=== PATIENT | female | born 2000 | race Caucasian/White ===

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

== ENCOUNTER 2021-05-08 12:17 | Observation (INO) | payer BC, MEDICAID, SELFPAY ==
[2021-05-08 12:18] VITALS: BP 110/67; PULSE 10; RESP 16; TEMP 36.3; O2SAT 100; BMI 23.1
--- NOTE | 2021-05-08 12:27 | EX.ED.SAOD ---
HPI History of Present Illness Chief Complaint: Substance Abuse Informant: patient Onset/Context/Timing Onset: Days Context: Gradual Onset Timing: Continuous Current Severity: Moderate Maximum Severity: Moderate Narrative Narrative: Patient is a 21-year-old female with no significant medical history who presents to the emergency department requesting detox from alcohol. Patient states that she drinks almost daily. She states that normally, she will drink malt liquor. She states that she will also drink whiskey or vodka. She states that she usually drinks almost every day. She thinks when she does not drink, she will use methamphetamines. She has been active with the [facility] program. She states that they are working to get her into a sober house after she finishes detox. She was referred in for alcohol detox. PFSH PFSH no medical history Allergy/AdvReac Type Severity Reaction Status Date / Time amoxicillin AdvReac Hives Verified 05/08/21 12:21 Social History Smoking Status: Unknown if ever smoked ROS ROS ED Constitutional Constitutional ED: Denies chills or fever(s) Eyes Eyes: Denies blurry vision or change in vision ENT ENT ED: Denies ear pain or sore throat Cardiovascular Cardiovascular: Denies chest pain or palpitations Respiratory/Chest Respiratory/Chest: Denies cough, dyspnea or dyspnea on exertion Gastrointestinal Gastrointestinal: Reports nausea Genitourinary Genitourinary ED: Denies dysuria or urinary frequency Musculoskeletal Musculoskeletal: Denies arthralgias or myalgias Integumentary Denies rash Neurologic Neurologic: Denies headache(s) or paresthesias Psychiatric Psychiatric: Denies anxiety or depression Endocrine Endocrinology: Denies polydipsia or polyuria Allergic/Immunologic Allergic/Immunologic ED: Denies urticaria EXAM Physical Exam Const Vital Signs: 05/08/21 12:18 Temperature 97.3 F L Temperature Source Temporal Pulse Rate 10 L Respiratory Rate 16 Blood Pressure 110/67 Blood Pressure Mean 81 Pulse Ox 100 Oxygen Delivery Method Room Air Positive well nourished and well developed General Appearance ED: well developed HEENT Reports normocephalic, head/scalp atraumatic and moist mucous membranes Eyes PERRL and EOMs intact bilaterally Neck no lymphadenopathy and supple General: Negative for tenderness Chest Wall inspection of chest normal Resp normal respiratory effort and clear to auscultation bilaterally Cardio regular rate, regular rhythm and no murmurs GI normal to inspection, nondistended, normoactive bowel sounds Palpation: Negative for tender, guarding or rebound tenderness present Back/Spine no CVA tenderness Cervical Spine: Negative for cervical spine tenderness Thoracic Spine / Upper Back: Negative for thoracic spinal tenderness Extremity normal to inspection General Extremety ED: Negative for tenderness Neuro oriented x3 and CN's II-XII intact bilaterally Neuro Narrative: No focal deficits appreciated. Sensorium / Orientation: alert Psych mental status grossly normal Skin no rashes or lesions noted, no wounds and skin turgor normal MDM MDM MDM Narrative Medical decision making narrative: Patient presents requesting detox for alcohol. Metabolic work-up was pursued. Her tox was positive for amphetamines which she was upfront about. Rest of her labs are unremarkable. The patient was discussed with hospitalist and will be admitted. Impression 1. Alcohol dependence Lab Data Attestation: I reviewed the patient's lab results. Labs: Laboratory Results - last 24 hr 05/08/21 12:34 Urine Opiates Screen NEGATIVE Urine Methadone Screen NEGATIVE Ur Barbiturates Screen NEGATIVE Ur Phencyclidine Scrn NEGATIVE Ur Amphetamines Screen POSITIVE H U Methamphetamin-MDMA POSITIVE H U Benzodiazepines Scrn NEGATIVE Urine Cocaine Screen NEGATIVE U Cannabinoids Screen NEGATIVE Ur Drug Screen Comment Discharge Plan Triage Chief Complaint: Substance Abuse ED Provider: Lyle Street Dx/Rx/DC Orders Primary Care Provider: Care Physician,No Primary
[2021-05-08 12:55] LABS: Amphetamine Urine VISTA POSITIVE (<1000 ng/mL); Barbiturate Urine VISTA NEGATIVE (< 200 ng/mL); Benzodiazepine Urine VISTA NEGATIVE (< 200 ng/mL); Cocaine Urine VISTA NEGATIVE (< 300 ng/mL); Ecstacy Urine VISTA POSITIVE (< 500 ng/mL); Methadone Urine VISTA NEGATIVE (< 300 ng/mL); PCP Urine VISTA NEGATIVE (< 25 ng/mL); THC Urine VISTA NEGATIVE (< 50 ng/mL); Vista UDS pH Range 6
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
[2021-05-08 13:16] LABS: Absolute Lymphocyte Count 2.81 X10^3/uL (0.83-4.51); Absolute Neutrophil Count 2.7 X10^3/uL (2.0-7.7); Basophil% 1.5 % (0-1); Eosinophil# 0.46 X10^3/uL; Eosinophils% 6.9 % (0-5); Hematocrit 45.1 % (37-47); Hemoglobin 15.1 g/dL (12.0-15.0); Lymphocyte # 2.81 X10^3/ul (0.83-4.51); Lymphocyte % 41.9 % (19-41); Mean Corp Hgb Conc 33.5 g/dL (32-36); Mean Corpuscular Hgb 30.4 pg (27.0-32.0); Mean Corpuscular Volume 90.7 fL (81-99); Mean Platelet Vol. 8.5 fl (6.2-12.0); Monocyte# 0.66 X10^3/uL; Monocyte% 9.8 % (0-10); NRBC Flagged by Analyzer 0 % (0-5); Neutrophil # 2.66 X10^3/uL (2.7-7.7); Neutrophil % 39.6 % (47-70); Platelet Count 396 K/mm3 (150-450); RBC Distribution Width SD 43.8 fl (35.1-43.9); Red Blood Count 4.97 M/mm3 (4.2-5.4); White Blood Count 6.7 K/mm3 (4.4-11.0)
[2021-05-08 13:29] LABS: Anion Gap 8 (5-15); BUN 12 mg/dL (7-18); BUN/Creat Ratio 12.5 RATIO (10-20); Calcium,Total 9.3 mg/dL (8.5-10.1); Chloride 102 mmol/L (98-107); Creatinine, Serum 0.96 mg/dL (0.55-1.02); EST Glomerular Filtration Rate 79 mL/min (>60); Est Glom Filt Rate - Afr Amer 95 mL/min (>60); Estimated Creatinine Clearance 80.72 ml/min; Glucose 93 mg/dL (74-106); Potassium 3.4 mmol/L (3.5-5.1); Sodium Level 139 mmol/L (136-145)
[2021-05-08 13:50] LABS: Internal QC Validated? YES +Cl - CLEAR BKGD; Pregnancy, Serum, hCG Quali. NEGATIVE Negative
--- NOTE | 2021-05-08 13:52 | ED.RN ---
CALLED [facility]TS REQUEST (MARLENE ORTEGA) TO LET THEM KNOW THAT SHE IS HERE. PT AWARE
[2021-05-08 13:54] LABS: Alcohol, Blood (Medical)-Serum < 3.0 mg/dL
--- NOTE | 2021-05-08 13:57 | CM.ED ---
SOCIAL WORK Referral Source: Self-referral Reason for Consult: Substance Abuse-requesting detox from alcohol Patient reports sent in by [facility] for detox from alcohol with plan for residential treatment after detox. Call to [facility] to update on patient's admission and room number. Plan: AMISH Rucker, COMMERCIAL AGENT, DERMATOLOGY SALES REPRESENTATIVE
[2021-05-08 14:18] VITALS: BP 112/74; PULSE 74; RESP 16; TEMP 36.6; O2SAT 98
[2021-05-08 14:22] VITALS: BMI 23.3
[2021-05-08 14:30] VITALS: BP 105/64; PULSE 92; RESP 16; TEMP 36.8; O2SAT 99
--- NOTE | 2021-05-08 16:36 | NURSING ---
Addendum entered by Nova Bautista 05/08/21 17:32: DID NOT GIVEN DC ORDER. PT LEFT AMA - REFUSING TO SIGN AMA PAPER. Original Note: LATE ENTRY - 1544 - WENT INTO PT'S ROOM TO ASSESS & GIVE SCHEDULED PHENOBARBITOL. PT ASKS WHO ARE YOU, TOLD HER MY NAME & THAT I WOULD BE HER NURSE FOR THE AFTERNOON. ASKS WHY SHE HAS TO HAVE THE SL IN HER AC I DON'T NEED IT. I TOLD HER I WOULD BE HAPPY TO TAKE IT OUT IF IT WAS PAINFUL TO HER. SHE SAID 'CAN SOMEONE ELSE DO IT?, I ASKED HER WHY SOMEONE ELSE, PT STATES BECAUSE I DON'T KNOW YOU. ASKED PT WHO SHE WOULD LIKE TO TAKE OUT HER SL & SHE STATES THE DOCTOR. THEN PT STATES WHY DO I HAVE TO STAY HERE? I WANT TO LEAVE. I TOLD HER THIS IS A VOLUNTARY PROGRAM - SHE DOES NOT HAVE TO STAY, BUT RECOMMEND THAT SHE DUE TO HELP WITHDRAWAL SYMPTOMS. PT STATES IM NOT WITHDRAWING FROM ANYTHING. I TOLD HER I WOULD CALL THE DOCTOR & EXPLAIN THIS TO HIM & SEE IF HE COULD COME SPEAK WITH HER. 155 - SPOKE TO DR MCGOWAN ON PHONE THAT PT WANTING TO LEAVE. TOLD HER I WOULD TRY TALKING TO HER MORE - RECOMMENDING SHE STAY THE 3 DAYS. I WAS GOING BACK TO PT'S ROOM, BUT PT WAS ALREADY WALKING TOWARD NURSES STATION, DRESSED, READY TO LEAVE. PT REFUSING TO SIGN AMA PAPER. 155 - SPOKE AGAIN ON PHONE WITH DR MCGOWAN MAKING HIM AWARE SHE WILL NOT SIGN THE AMA PAPER. GAVE DC ORDER.
== END 2021-05-08 16:00 | disposition left against medical advice (07) ==
LOC: ED 12:39 → MS3 13:11
PROVIDERS: Admitting Provider Family Medicine; Emergency Provider Emergency Medicine; Visit Provider Family Medicine
DX: F10.239 Alcohol dependence with withdrawal, unspecified (principal); F15.90 Other stimulant use, unspecified, uncomplicated; F17.210 Nicotine dependence, cigarettes, uncomplicated; Z91.5 Personal history of self-harm
CPT/HCPCS: 80048; 80307; 82077; 84703; 85025; 99218; 99284; A4216; G0378

== ENCOUNTER 2021-05-18 07:54 | Emergency (ER) | payer BC, MEDICAID, SELFPAY ==
[2021-05-18] VITALS (7 sets, daily range): BP systolic 121–128; BP diastolic 72–84; PULSE 83–98; RESP 13–18; TEMP 36.7–37.1; O2SAT 97–100; BMI 24.5
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
--- NOTE | 2021-05-18 08:45 | ED.RN ---
pt mother called, pt agreed to speak with mother. pt currently speaking with mother.
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
[2021-05-18 09:08] LABS: Internal QC Validated? YES +Cl - CLEAR BKGD; Pregnancy, Serum, hCG Quali. NEGATIVE Negative
--- NOTE | 2021-05-18 10:50 | EKG12_ITS ---
Test Reason : MENTAL Blood Pressure : / mmHG Vent. Rate : 098 BPM Atrial Rate : 098 BPM P-R Int : 150 ms QRS Dur : 082 ms QT Int : 342 ms P-R-T Axes : 042 066 031 degrees QTc Int : 436 ms Normal sinus rhythm Normal ECG Confirmed by MONTRELL REYES, LEONORA ([id number]), legal editor SUSAN HILL ([id number]) on 05/21/2021 11:01:57 A M Referred By: CHEL Confirmed By:EDI STOCK MD
[2021-05-18 11:36] LABS: Amphetamine Urine VISTA NEGATIVE (<1000 ng/mL); Barbiturate Urine VISTA NEGATIVE (< 200 ng/mL); Benzodiazepine Urine VISTA NEGATIVE (< 200 ng/mL); Cocaine Urine VISTA NEGATIVE (< 300 ng/mL); Ecstacy Urine VISTA NEGATIVE (< 500 ng/mL); Methadone Urine VISTA NEGATIVE (< 300 ng/mL); PCP Urine VISTA NEGATIVE (< 25 ng/mL); THC Urine VISTA NEGATIVE (< 50 ng/mL); Vista UDS pH Range 6
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
--- NOTE | 2021-05-18 14:29 | CM.ED ---
AR Note AR received call from Lyndsey at [facility]. She reports they can accept patient. She said that accepting MD is Dr. Miles Patient will go to [address] [place] [address]. RN to RN is [phone]. RN updated. Raven, principal secretary, will arrange for transport. AR spoke to patient and updated her that she is pink slipped to [facility]. She gave verbal consent to update her parents regarding her plan to go to [facility] in [place]. AR called patient's mother, Diana and updated her regarding patient's discharge. AR provided her with name of [place] and contact number. AR left voice mail for patient's father to call this video games storywriter. Plan: inpatient psych at [facility] YURI VICKERS
--- NOTE | 2021-05-18 16:04 | CM.ED ---
SW Note Late Entry. Patient reported that her current mood was tired and she reports anxiety but no change in anxiety level. Patient denied any psychosis. Plan: [facility] Sonya LucaJorge
--- NOTE | 2021-05-18 18:51 | NURSING ---
CALLED PHYSICIANS AT 6:30PM FOR RIDE UPDATE. I WAS INFORMED THEY WHERE SENDING THE 6PM CREW AND SHOULD BE HERE WITHIN THE HOUR.
== END 2021-05-18 19:35 ==
PROVIDERS: Emergency Provider Emergency Medicine
DX: R45.851 Suicidal ideations (principal); F19.10 Other psychoactive substance abuse, uncomplicated; F17.210 Nicotine dependence, cigarettes, uncomplicated
CPT/HCPCS: 36415; 80307; 82077; 84703; 87426; 93005; 99285

== ENCOUNTER 2021-06-11 10:04 | Emergency (ER) | payer BC, MEDICAID, SELFPAY ==
[2021-05-18 07:55] VITALS: BMI 24.5
[2021-06-11 10:05] VITALS: BP 120/62; PULSE 85; RESP 19; TEMP 36.4; O2SAT 97; BMI 22.3
--- NOTE | 2021-06-11 11:01 | EX.ED.DYSGE1 ---
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 Presents today because she is out of her medications. Her primary care physician to [facility] recently retired. She has an appointment on the in 2 days to set up a new primary care physician. She states she was told by the clinic to come to ER to get her medications refilled. She denies any complaints. Prior similar symptoms: No Recent Illness/Hospitalization: No PFSH PFSH Medical History Alcohol abuse Anxiety Bipolar disorder Depression Migraines Substance abuse Home Medications bupropion HCl 1 mg PO DAILY 06/11/21 [History Last Taken Unknown] bupropion HCl 300 mg PO DAILY #14 tab 06/11/21 [Rx Last Taken Unknown] fluoxetine 20 mg PO DAILY 06/11/21 [History Last Taken Unknown] fluoxetine 20 mg PO DAILY #14 cap 06/11/21 [Rx Last Taken Unknown] hydroxyzine pamoate 50 mg PO DAILY 06/11/21 [History Last Taken Unknown] multivitamin [Daily-Carly] 1 tab PO DAILY 06/11/21 [History Last Taken Unknown] risperidone 1 mg PO BID 06/11/21 [History Last Taken Unknown] risperidone 1 mg PO BID #30 tab 06/11/21 [Rx Last Taken Unknown] risperidone mg 06/11/21 [History Last Taken Unknown] trazodone 06/11/21 [History Last Taken Unknown] trazodone 50 mg PO QHS PRN 14 Days #14 tab 06/11/21 [Rx Last Taken Unknown] Allergy/AdvReac Type Severity Reaction Status Date / Time amoxicillin Allergy Hives Verified 06/11/21 10:05 Family History Father Heart disease Aunt Cancer Other Thyroid disorder Social History Smoking Status: Current every day smoker tobacco type: cigarettes alcohol intake: current alcohol intake frequency: 0-2 drinks per day Alcohol type: beer substance use type: methamphetamine ROS ROS ED ROS Narrative Denies Review of Systems ROS Unobtainable: Denies due to encephalopathy Constitutional Constitutional ED: Denies chills or fever(s) Eyes Eyes: Denies change in vision ENT ENT ED: Denies ear pain or sore throat Cardiovascular Cardiovascular: Denies chest pain Respiratory/Chest Respiratory/Chest: Denies cough or dyspnea Gastrointestinal Gastrointestinal: Denies abdominal pain, diarrhea, nausea or vomiting Genitourinary Genitourinary ED: Denies dysuria Musculoskeletal Musculoskeletal: Denies myalgias Integumentary Denies rash Neurologic Neurologic: Denies headache(s) Psychiatric Psychiatric: Denies depression Endocrine Endocrinology: Denies polyuria Allergic/Immunologic Allergic/Immunologic ED: Denies urticaria EXAM Physical Exam Narrative Exam Narrative: Young female no acute distress. Vital signs stable afebrile. Unremarkable exam. Lungs are clear. Heart regular rate and rhythm. Moving all 4 extremities. No edema. Const Vital Signs: 06/11/21 10:05 Temperature 97.6 F L Temperature Source Temporal Pulse Rate 85 Respiratory Rate 19 H Blood Pressure 120/62 Blood Pressure Mean 81 Pulse Ox 97 Oxygen Delivery Method Room Air Positive well nourished and well developed General Appearance ED: well developed HEENT Reports moist mucous membranes Negative for trauma or tenderness Eyes PERRL and EOMs intact bilaterally Neck no lymphadenopathy, supple and no JVD General: Negative for tenderness Chest Wall inspection of chest normal and palpation of chest normal Resp normal respiratory effort and clear to auscultation bilaterally Cardio regular rate, regular rhythm, S1 normal heart sound, S2 normal heart sound and no murmurs GI normal to inspection, nondistended, normoactive bowel sounds, non-tender, non-distended and no masses Auscultation: normoactive bowel sounds Palpation: soft; Negative for tender Back/Spine no CVA tenderness Cervical Spine: Negative for cervical spine tenderness Extremity normal to inspection General Extremety ED: Negative for edema or tenderness General Extremity: Negative for edema Neuro oriented x3 Sensorium / Orientation: alert Motor Exam: strength 5/5 throughout Psych mental status grossly normal Skin no rashes or lesions noted and no wounds MDM MDM MDM Narrative Medical decision making narrative: Patient needs her meds refilled. She has no complaints. Discharge Plan Triage Chief Complaint: Med Refill ED Provider: Shamar Heredia Dx/Rx/DC Orders Clinical Impression: Medication refill Prescriptions: New risperidone 1 mg tablet 1 mg PO BID Qty: 30 RF: 0 bupropion HCl 300 mg tablet extended release 24 hr 300 mg PO DAILY Qty: 14 RF: 0 fluoxetine 20 mg capsule 20 mg PO DAILY Qty: 14 RF: 0 trazodone 50 mg tablet 50 mg PO QHS PRN (Reason: insomnia) 14 Days Qty: 14 RF: 0 No Action multivitamin [Daily-Carly] Tablet RF: 0 trazodone 50 mg tablet RF: 0 hydroxyzine pamoate 50 mg capsule RF: 0 fluoxetine 20 mg capsule RF: 0 risperidone 1 mg tablet RF: 0 bupropion HCl 300 mg tablet extended release 24 hr PO RF: 0 Primary Care Provider: Care Physician,No Primary Referrals: Gregory Velázquez MD [NON-STAFF] - [facility] appointment Care Physician,No Primary [Primary Care Provider] - Activity Restrictions/Additional Instructions: Follow-up and get your primary care physician. Disposition Disposition: Home, Self Care
[2021-06-11 11:14] VITALS: BP 127/66; PULSE 59; RESP 16; O2SAT 98
== END 2021-06-11 11:15 | disposition home or self-care (01) ==
LOC: ED 11:05
PROVIDERS: Emergency Provider Emergency Medicine
DX: F41.9 Anxiety disorder, unspecified (principal); F31.9 Bipolar disorder, unspecified; Z76.0 Encounter for issue of repeat prescription; F17.210 Nicotine dependence, cigarettes, uncomplicated; Z79.899 Other long term (current) drug therapy
CPT/HCPCS: 99282

== ENCOUNTER → 2023-04-07 | Outpatient (CLI) | payer BC, MEDICAID, SELFPAY ==
[2023-04-14 17:15] LABS: HPV Reflexed? NOT INDICATED
== END | disposition home or self-care (01) ==
LOC: LABSPEC 11:33
PROVIDERS: Visit Provider Nurse Practitioner Women's Health
DX: Z12.4 Encounter for screening for malignant neoplasm of cervix (principal)
CPT/HCPCS: 88175; G0145

== ENCOUNTER 2023-11-19 08:12 | Emergency (ER) | payer OTHER, SELFPAY ==
[2023-11-19 08:13] VITALS: BP 95/75; PULSE 54; RESP 14; TEMP 36.4; O2SAT 99; BMI 26.6
--- NOTE | 2023-11-19 08:48 | EDS_ITS ---
HPI History of Present Illness Chief Complaint: Laceration Informant: patient Narrative Narrative: 23-year-old female presenting to the emergency room with a chief complaint of finger injury. Patient was using a cottonseed meat presser when she sustained a laceration to the distal aspect of her right thumb. She states it also cut some of the nail. She notes her last tetanus shot has been within the last 5 years. She is right-handed. Bleeding controlled. Tetanus Immunization: <5 years PFSH PFS Medical History Alcohol abuse Anxiety Bipolar disorder Depression Migraines Substance abuse Medical History no medical history Home Medications bupropion HCl 300 mg 24 hr tablet, extended release 1 mg PO DAILY 06/11/21 [History Last Taken Unknown] bupropion HCl 300 mg 24 hr tablet, extended release 300 mg PO DAILY #14 tabs 06/11/21 [Rx Last Taken Unknown] fluoxetine 20 mg capsule 20 mg PO DAILY 06/11/21 [History Last Taken Unknown] fluoxetine 20 mg capsule 20 mg PO DAILY #14 caps 06/11/21 [Rx Last Taken Unknown] hydroxyzine pamoate 50 mg capsule 50 mg PO DAILY 06/11/21 [History Last Taken Unknown] multivitamin (Daily-Carly tablet) 1 tab PO DAILY 06/11/21 [History Last Taken Unknown] risperidone 1 mg tablet 1 mg PO BID 06/11/21 [History Last Taken Unknown] risperidone 1 mg tablet 1 mg PO BID #30 tabs 06/11/21 [Rx Last Taken Unknown] risperidone 1 mg tablet mg 06/11/21 [History Last Taken Unknown] trazodone 50 mg tablet 06/11/21 [History Last Taken Unknown] trazodone 50 mg tablet 50 mg PO QHS PRN insomnia 14 days #14 tabs 06/11/21 [Rx Last Taken Unknown] Allergy/AdvReac Type Severity Reaction Status Date / Time amoxicillin Allergy Hives Verified 11/19/23 08:13 Family History Father Heart disease Aunt Cancer Other Thyroid disorder Social History Smoking Status: Current every day smoker tobacco type: cigarettes alcohol intake: current alcohol intake frequency: 0-2 drinks per day Alcohol type: beer substance use type: methamphetamine ROS ROS ED Constitutional Constitutional ED: Denies chills, fever(s) or weight loss Eyes Eyes: Denies change in vision or diplopia ENT ENT ED: Denies ear pain, rhinorrhea or sore throat Cardiovascular Cardiovascular: Denies chest pain, orthopnea, palpitations or racing heartbeat Respiratory/Chest Respiratory/Chest: Denies cough, dyspnea or orthopnea Gastrointestinal Gastrointestinal: Denies abdominal pain, diarrhea, nausea or vomiting Genitourinary Genitourinary ED: Denies dysuria, hematuria or urinary frequency Musculoskeletal Musculoskeletal: Denies arthralgias or myalgias Integumentary Reports other Details: Right thumb laceration with nail injury ; Denies abscess or rash Neurologic Neurologic: Denies headache(s) or weakness Psychiatric Psychiatric: Denies anxiety, depression, suicidal ideation or suicidal thoughts Endocrine Endocrinology: Denies polydipsia, polyphagia or polyuria Allergic/Immunologic Allergic/Immunologic ED: Denies mouth swelling, tongue swelling or urticaria EXAM Physical Exam Const Vital Signs: 11/19/23 08:13 Temperature 97.6 F L Temperature Source Oral Pulse Rate 54 L Respiratory Rate 14 Blood Pressure 95/75 Blood Pressure Mean 81 Pulse Ox 99 Oxygen Delivery Method Room Air Positive well nourished and well developed General Appearance ED: well developed HEENT Reports normocephalic, head/scalp atraumatic and moist mucous membranes Eyes PERRL and EOMs intact bilaterally Neck no lymphadenopathy, supple and no JVD Resp normal respiratory effort and clear to auscultation bilaterally Cardio regular rate, regular rhythm and no murmurs GI normal to inspection, nondistended, normoactive bowel sounds and non-tender Palpation: soft Back/Spine no CVA tenderness and normal ROM Extremity normal to inspection Extremity Narrative: There is a 2.5 cm linear laceration over the distal aspect of the right thumb. This extends up onto the medial aspect of the right nail. Neurovascular intact. The wound is open about 3 mm in width . NVI General Extremety ED: Negative for edema General Extremity: Negative for edema Neuro oriented x3 and CN's II-XII intact bilaterally Sensorium / Orientation: alert Motor Exam: strength 5/5 throughout Psych mental status grossly normal Mood & Affect: Negative for depressed or tearful Skin no rashes or lesions noted and no wounds MDM MDM MDM Narrative Medical decision making narrative: Right thumb was digitally blocked using 1% lidocaine. After adequate time the thumb was properly anesthetized. The cut portion of the nail was removed by grasping the distal portion and cutting proximally to where the laceration ended. This measured about 4 mm. The laceration itself was was closedWashed with Shur-Clens and explored. No foreign bodies were noted. A total of 5 simple interrupted 5-0 Ethilon sutures. Local wound care discussed with the patient. Stitches will need to be removed in 10 days. Discharge Plan Triage Chief Complaint: Laceration ED Provider: Jean Al Dx/Rx/DC Orders Clinical Impression: Pain of right thumb, Laceration of finger of right hand with damage to nail Instructions: ED Laceration, All Closures Prescriptions: No Action risperidone 1 mg tablet 1 mg PO BID Qty: 30 0RF bupropion HCl 300 mg tablet extended release 24 hr 300 mg PO DAILY Qty: 14 0RF fluoxetine 20 mg capsule 20 mg PO DAILY Qty: 14 0RF multivitamin [Daily-Carly] Tablet 1 tab PO DAILY trazodone 50 mg tablet hydroxyzine pamoate 50 mg capsule 50 mg PO DAILY fluoxetine 20 mg capsule 20 mg PO DAILY risperidone 1 mg tablet 1 mg PO BID bupropion HCl 300 mg tablet extended release 24 hr 1 mg PO DAILY trazodone 50 mg tablet 50 mg PO QHS PRN (Reason: insomnia) 14 Days Qty: 14 0RF risperidone 1 mg tablet Primary Care Provider: Delfino Vallejo Referrals: Delfino Vallejo MD [Primary Care Provider] - [facility] [Non-Staff] - 10 Day for suture removal Disposition Disposition: Home, Self Care
[2023-11-19 10:17] VITALS: BP 116/77; PULSE 78; RESP 16; TEMP 36.9; O2SAT 99
== END 2023-11-19 10:24 | disposition home or self-care (01) ==
PROVIDERS: Emergency Provider Emergency Medicine; PCP Family Medicine; Visit Provider Emergency Medicine
DX: S61.111A Laceration without foreign body of right thumb with damage to nail, initial encounter (principal); F17.210 Nicotine dependence, cigarettes, uncomplicated; W26.8XXA Contact with other sharp object(s), not elsewhere classified, initial encounter
CPT/HCPCS: 12001; 11765; 99283

== ENCOUNTER 2024-07-08 11:05 | Emergency (ER) | payer OTHER, SELFPAY ==
[2024-07-08 11:05] VITALS: BP 146/97; PULSE 70; RESP 14; TEMP 36.6; O2SAT 100; BMI 24.0
--- NOTE | 2024-07-08 11:23 | CT_ITS ---
EXAM: CT ABDOMEN AND PELVIS WITH INTRAVENOUS CONTRAST CLINICAL INDICATION: Abdominal pain. TECHNIQUE: Helically acquired images were obtained of the abdomen and pelvis with intravenous contrast. This CT exam was performed using one or more of the following dose reduction techniques: automated exposure control, adjustment of the mA and/or kV according to patient size, and/or use of iterative reconstruction technique. CONTRAST: IV 100mL Isovue-370 RADIATION DOSE: CTDIvol = 11.4 mGy, DLP = 447.16 mGy-cm COMPARISON: No relevant prior studies available. FINDINGS: LOWER THORAX: Unremarkable. Lung bases are clear. No cardiomegaly. No significant pericardial effusion. ABDOMEN: LIVER: Unremarkable. Homogeneous. No focal mass. GALLBLADDER AND BILE DUCTS: Unremarkable. No calcified gallstones. No gallbladder distention or wall edema. No intra- or extrahepatic biliary ductal dilation. PANCREAS: Unremarkable. No focal cystic or solid mass. SPLEEN: Unremarkable. Normal size without focal cystic or solid mass. ADRENALS: Unremarkable. No nodules. KIDNEYS AND URETERS: Unremarkable. Normal renal size and position. No hydronephrosis. STOMACH AND BOWEL: Unremarkable. No stomach or bowel distention. No focal inflammatory change. PELVIS: APPENDIX: Normal appendix. BLADDER: Unremarkable. REPRODUCTIVE: No suspicious abnormality of the anteverted uterus. No adnexal mass lesions. There are small follicular cysts in both ovaries. ABDOMEN and PELVIS: INTRAPERITONEAL SPACE: Unremarkable. No ascites or other fluid collection. No free air. BONES/JOINTS: Unremarkable. No suspicious lytic or blastic abnormality. SOFT TISSUES: Unremarkable. No discrete abdominal or pelvic wall hernia. VASCULATURE: Unremarkable. Abdominal aorta is non-dilated. LYMPH NODES: Unremarkable. No enlarged lymph nodes. CT/Abdomen/Pelvis W IV Cont ONLY IMPRESSION: No acute abnormality in the abdomen and pelvis. Electronically Signed: Pawan Figueredo MD at 12:49 EDT ,
--- NOTE | 2024-07-08 11:24 | EDS_ITS ---
HPI HPI - GI History of Present Illness Chief Complaint: Abd Pain Narrative Narrative: 24-year-old female who denies significant past medical history presents with periumbilical abdominal pain that awoke her from sleep a few hours ago. She describes it as crampy, but also sharp and stabbing. She denies any fevers or chills, no nausea or vomiting, no problems with bowel movement such as diarrhea, but she states that her last bowel movement was yesterday. She usually has coffee and a bowel movement in the morning, but did not go today. No prior abdominal surgeries. She denies any dysuria or hematuria, no exacerbating or alleviating factors. The pain is really in the middle of her stomach/abdomen and radiates outwards. PFSH PFS Medical History Bipolar disorder Alcohol abuse Anxiety Depression Substance abuse Migraines Home Medications ?Medication ?Instructions ?Recorded ?Last Taken ?Type fluoxetine 20 mg capsule 20 mg PO DAILY #14 caps 06/11/21 11/19/23 Rx bupropion HCl 150 mg 24 hr tablet, 150 mg PO DAILY 11/19/23 11/19/23 History extended release dicyclomine 20 mg tablet 20 mg PO TID PRN abdominal pain 07/08/24 Unknown Rx #20 tabs Allergy/AdvReac Type Severity Reaction Status Date / Time amoxicillin Allergy Hives Verified 07/08/24 11:05 Family History Father Heart disease Aunt Cancer Other Thyroid disorder Social History Smoking Status: Current every day smoker tobacco type: cigarettes alcohol intake: current alcohol intake frequency: 0-2 drinks per day Alcohol type: beer substance use type: methamphetamine ROS ROS ED ROS Narrative Constitutional: No fever, no chills. HEENT: No sore throat. No neck pain. No loss of vision. No rhinorrhea. Cardiovascular: No chest pain. No palpitations. No pedal edema. Respiratory: No cough, no shortness of breath. Abdominal: Periumbilical abdominal pain. No nausea. No vomiting. No problems with bowel movements. Genitourinary: No dysuria. No hematuria. Musculoskeletal: No myalgias. No arthralgias. Neurologic: No headaches. No dizziness. No lightheadedness. Skin: No rash. No change in color. Psychiatric: No depression. No anxiety. EXAM Physical Exam Narrative Exam Narrative: Afebrile. Vital signs noted. HEENT: Normocephalic. Atraumatic. PERRL, EOMI. Neck soft and supple. No point tenderness or step off. Cardiovascular: Regular rate and rhythm. No murmurs, rubs, or gallops appreciated. Respiratory: No tachypnea. Lungs clear to auscultation bilaterally. Gastrointestinal: Abdomen soft, mild tenderness to palpation in periumbilical area, suprapubic to left lower quadrant with normoactive bowel sounds. No rebound or guarding. No pain over McBurney's point. Neurological: Awake. Alert. Nonfocal, nonlateralizing. Skin: No rash. Normal color. No pallor. Musculoskeletal: No pedal edema. Full range of motion extremities. Const Vital Signs: 07/08/24 11:05 Temperature 98 F Temperature Source Temporal Pulse Rate 70 Respiratory Rate 14 Blood Pressure 146/97 H Blood Pressure Mean 113 Pulse Ox 100 Oxygen Delivery Method Room Air MDM MDM MDM Narrative Medical decision making narrative: Differential diagnosis includes but not limited to acute appendicitis versus diverticulitis versus cystitis versus nonspecific abdominal pain. Patient states she think it must be indigestion. History and physical does not necessarily support cystitis or diverticulitis or ureterolithiasis. Her pain is more periumbilical than it is in the upper portion of her abdomen so I doubt things such as pancreatitis. Comprehensive workup was pursued. She was offered analgesia, but declined until after workup. I reviewed her laboratory work and she has normal white count of 5.3, hemoglobin normal at 14.6, hematocrit 43.4, platelet count normal at 328. CMP is grossly unremarkable except for LFTs which are low with an AST of 11 and ALT of 12 with alk phos 39 which I think is nonspecific. Lipase normal at 40 so I doubt pancreatitis. Urinalysis negative for infection, I do not feel antibiotics are indicated. I reviewed the radiology report of the CT of the abdomen and pelvis which shows no evidence of an acute process, no obstruction. At this point in time, repeat examination at approximately 1305 shows her to be resting comfor tably and she feels improved after IV fluids. She was given a Bentyl 20 mg tablet here in the emergency department and prescription written to take up to 3 times a day as needed. She will follow-up with her primary care provider. Return instructions were reviewed. Disposition is discharged home in stable condition. History & Record Review Discussion w/independent historian: Patient Lab Data Attestation: I reviewed the patient's lab results. Labs: Laboratory Results - last 24 hr 07/08/24 11:54 WBC 5.3 RBC 4.76 Hgb 14.6 Hct 43.4 MCV 91.2 MCH 30.7 MCHC 33.6 RDW Std Deviation 44.9 H RDW Coeff of Liliana 13.2 Plt Count 328 MPV 9.1 Immature Gran % (Auto) 0.200 Neut % (Auto) 37.5 L Lymph % (Auto) 53.1 H [place] % (Auto) 6.8 Eos % (Auto) 1.5 Baso % (Auto) 0.9 Absolute Neuts (auto) 2.0 Absolute Lymphs (auto) 2.82 Nucleated RBC % 0 Sodium 137 Potassium 3.5 Chloride 107 Carbon Dioxide 22.0 Anion Gap 8 BUN 15 Creatinine 0.86 Estim Creat Clear Calc 87.85 Est GFR (MDRD) Af Amer 105 Est GFR (MDRD) Non-Af 86 BUN/Creatinine Ratio 17.4 Glucose 105 Calcium 9.5 Total Bilirubin 0.40 AST 11 L ALT 12 L Alkaline Phosphatase 39 L Total Protein 7.7 Albumin 4.1 Globulin 3.6 Albumin/Globulin Ratio 1.1 Lipase 40 Serum , Qual NEGATIVE Urine Color Yellow Urine Clarity Clear Urine pH 7.0 Ur Specific [place] 1.010 Urine Protein Negative Urine Glucose (UA) Normal Urine Ketones Negative Urine Occult Blood Negative Urine Nitrite Negative Urine Bilirubin Negative Urine Urobilinogen Normal Ur Leukocyte Esterase Negative Urine RBC 0 SEEN Urine WBC 0 SEEN Ur Squamous Epith Cells 0-5 SEEN Urine Bacteria 0 SEEN Urine Mucus 0 SEEN Radiography Diagnostic Testing: Clinical Impression(s) from Imaging Studies Abdomen/Pelvis CT 07/08/24 11:23 IMPRESSION: No acute abnormality in the abdomen and pelvis. Electronically Signed: Pawan Figueredo MD at 12:49 EDT , Discharge Plan Triage Chief Complaint: Abd Pain ED Provider: Pawan Chacko Dx/Rx/DC Orders Clinical Impression: Abdominal pain Instructions: ED Abdominal Pain Unkn Cause Fem Prescriptions: New dicyclomine 20 mg tablet 20 mg PO TID PRN (Reason: abdominal pain) Qty: 20 0RF No Action fluoxetine 20 mg capsule 20 mg PO DAILY Qty: 14 0RF bupropion HCl 150 mg tablet extended release 24 hr 150 mg PO DAILY Primary Care Provider: Delfino Vallejo Referrals: Delfino Vallejo MD [Primary Care Provider] - 3-5 Days if not improving Activity Restrictions/Additional Instructions: Take the Bentyl as needed for abdominal pain. Return with increased pain, fever, new or worsening symptoms. Print Language: Nigerien Disposition Disposition: Home, Self Care
[2024-07-08] MEDS: 0.9% Normal Saline (1000mL) 1,000 ML 999 ML IV (11:52)
[2024-07-08 12:00] LABS: Bacteria 0 SEEN /hpf (None Seen); Mucous, Urine 0 SEEN /hpf (<or=2+); Red Blood Cells-Urine 0 SEEN /hpf (0-5); White Blood Cells 0 SEEN /hpf (0-5)
[2024-07-08 12:01] LABS: Color, Urine Yellow (Yellow); Glucose, Dipstick Normal (Normal); Ketone-Dipstick Negative (Negative); Leukocyte Esterase-Dipstick Negative /ul (Negative); Nitrite-Dipstick Negative (Negative); Occult Blood-Urine Negative /ul (Negative); Protein-Dipstick Negative (Negative); Urine Bilirubin Dipstick Negative (Negative); Urine Clarity Clear (Clear); Urine Urobilinogen Normal (Normal)
[2024-07-08 12:02] LABS: Absolute Lymphocyte Count 2.82 X10^3/uL (0.83-4.51); Basophil# 0.05 X10^3/uL; Basophil% 0.9 % (0-1); Eosinophil# 0.08 X10^3/uL; Eosinophils% 1.5 % (0-5); Hematocrit 43.4 % (37-47); Hemoglobin 14.6 g/dL (12.0-15.0); Lymphocyte # 2.82 X10^3/ul (0.83-4.51); Lymphocyte % 53.1 % (19-41); Mean Corp Hgb Conc 33.6 g/dL (32-36); Mean Corpuscular Hgb 30.7 pg (27.0-32.0); Mean Corpuscular Volume 91.2 fL (81-99); Mean Platelet Vol. 9.1 fl (6.2-12.0); Monocyte# 0.36 X10^3/uL; Monocyte% 6.8 % (0-10); NRBC Flagged by Analyzer 0 % (0-5); Neutrophil # 1.99 X10^3/uL (2.7-7.7); Neutrophil % 37.5 % (47-70); Platelet Count 328 K/mm3 (150-450); RBC Distribution Width CV 13.2 % (11.6-14.6); RBC Distribution Width SD 44.9 fl (35.1-43.9); Red Blood Count 4.76 M/mm3 (4.2-5.4); White Blood Count 5.3 K/mm3 (4.4-11.0)
[2024-07-08 12:08] LABS: Squamous Epithelial Cells - UA 0-5 SEEN /hpf (5-10)
[2024-07-08 12:10] LABS: Internal QC Validated? YES +Cl - CLEAR BKGD
[2024-07-08 12:11] LABS: Pregnancy, Serum, hCG Quali. NEGATIVE Negative
[2024-07-08 12:22] LABS: ALB/GLOB Ratio 1.1 RATIO (0.9-2.4); AST(SGOT) 11 U/L (15-37); Alanine Aminotransfer ALT/SGPT 12 U/L (13-56); Albumin, Serum 4.1 g/dL (3.2-5.0); Alkaline Phosphatase 39 U/L (45-117); Anion Gap 8 (5-15); BUN 15 mg/dL (7-18); BUN/Creat Ratio 17.4 RATIO (10-20); Calcium,Total 9.5 mg/dL (8.5-10.1); Chloride 107 mmol/L (98-107); Creatinine, Serum 0.86 mg/dL (0.55-1.02); EST Glomerular Filtration Rate 86 mL/min (>60); Est Glom Filt Rate - Afr Amer 105 mL/min (>60); Estimated Creatinine Clearance 87.85 ml/min; Globulin 3.6 g/dL (2.2-4.2); Glucose 105 mg/dL (74-106); Lipase 40 U/L (13-75); Potassium 3.5 mmol/L (3.5-5.1); Protein, Total 7.7 g/dL (6.4-8.2); Sodium Level 137 mmol/L (136-145)
[2024-07-08 13:05] VITALS: BP 125/81; PULSE 81; RESP 14; O2SAT 98
[2024-07-08] MEDS: Dicyclomine 10 MG Capsule 20 MG PO (13:44)
== END 2024-07-08 13:49 | disposition home or self-care (01) ==
PROVIDERS: Emergency Provider Emergency Medicine; PCP Family Medicine; Visit Provider Emergency Medicine
DX: R10.33 Periumbilical pain (principal); F17.210 Nicotine dependence, cigarettes, uncomplicated
CPT/HCPCS: 74177; 80053; 81001; 83690; 84703; 85025; 96360; 96361; 99284; J7030; Q9967; A4216

== ENCOUNTER → 2024-10-08 | Outpatient (CLI) | payer OTHER, SELFPAY ==
[2024-10-08 10:34] LABS: Mucous, Urine 0 SEEN /hpf (<or=2+)
[2024-10-08 10:39] LABS: Color, Urine Yellow (Yellow); Glucose, Dipstick Normal (Normal); Ketone-Dipstick Negative (Negative); Leukocyte Esterase-Dipstick 100 /ul (Negative); Nitrite-Dipstick Negative (Negative); Occult Blood-Urine 25 /ul (Negative); Protein-Dipstick Negative (Negative); Urine Bilirubin Dipstick Negative (Negative); Urine Clarity Clear (Clear); Urine Urobilinogen Normal (Normal)
[2024-10-08 10:46] LABS: Red Blood Cells-Urine 0-5 SEEN /hpf (0-5); Squamous Epithelial Cells - UA 0-5 SEEN /hpf (5-10); White Blood Cells 10-25 SEEN /hpf (0-5)
[2024-10-08 10:47] LABS: Bacteria 2+ /hpf (None Seen)
== END | disposition home or self-care (01) ==
LOC: LABSPEC 10:19
PROVIDERS: PCP Family Medicine; Referring Provider Physician Assistant Surgical; Visit Provider Physician Assistant Surgical
DX: R30.0 Dysuria (principal)
CPT/HCPCS: 81001; 87077; 87086; 87088; 87186

== ENCOUNTER 2025-10-24 01:58 | Emergency (ER) | payer OTHER, SELFPAY ==
[2025-10-24 02:01] VITALS: BP 101/69; PULSE 79; RESP 16; TEMP 36.4; O2SAT 100; BMI 25.1
--- OUTSIDE RECORDS SUMMARY | 2025-10-24 02:45 | XMS RPT_ITS | CCD ---
Author Organization [facility] ion Partnership [facility] Care Team Providers Care Marketing Director Name Role Phone Delfino Vallejo MD Primary Care Provider [phone] Delfino Vallejo MD Primary Care Provider [phone] Gaby VIGIL.Marisa PADRON Unavailable Christiana Briones PA-C Unavailable Delfino Vallejo Primary Care Unavailable Pawan Chacko Attending Unavailable Thomas Haider Referring Unavailable Thomas Haider Attending Unavailable Delfino Vallejo Primary Care Unavailable Thomas Haider Attending Unavailable Delfino Vallejo Referring Unavailable Delfino Vallejo Primary Care Unavailable Delfino Vallejo Primary Care Unavailable Thomas Haider Attending Unavailable Delfino Vallejo Referring Unavailable Gaby VIGIL.Marisa PADRON Unavailable Christiana Briones PA-C Unavailable DELFINO VALLEJO MD Primary Care Physician CHRISTIANA BRIONES Attending Unavailable DELFINO VALLEJO Primary Care Unavailable DARLING BRANHAM Attending Unavailable DELFINO VALLEJO Primary Care Unavailable CHRISTIANA BRIONES Attending Unavailable DELFINO VALLEJO Primary Care Unavailable DARLING BRANHAM Attending Unavailable DELFINO VALLEJO Primary Care Unavailable DARLING BRANHAM Referring Unavailable DELFINO VALLEJO Primary Care Unavailable LUPILLO STEPHENSON MD Attending Unavailable DELFINO VALLEJO MD Primary Care Unavailable Allergies Allergy Classification Reported Allergen(s) Allergy Type Date of Onset Reaction(s) Facility (18 sources) Amoxicillin; Translations: [amoxicillin] Drug Allergy 01-02-2016 [facility] Work Phone: (1 source) Amoxicillin Drug Allergy 03-25-2025 [facility] Repository Medications Current Medications Medication Drug Class(es) Dates Sig (Normalized) Sig (Original) 12 hr buPROPion hydrochloride 100 mg extended release oral tablet (19 sources) Aminoketone Start: 03-09-2024 End: 2025 take 1 tablet by mouth once daily buPROPion SR (WELLBUTRIN SR) 100 mg 12 hr tablet Take 1 tablet by mouth once daily. 90 tablet 3 2025 Active Start: 11-19-2023 take 150 mg by mouth once kg y Bupropion Hcl Active 150 MG PO DAILY November 19, 2023 12:00am Start: 06-11-2021 End: 03-09-2024 take 1 tablet by mouth once daily buPROPion XL (WELLBUTRIN XL) 300 mg 24 hr tablet Indications: Anxiety and depression Take 1 tablet by mouth once daily. Via Psych with 180 30 tablet 6 09/14/2021 03/09/2024 Discontinued Start: 06-11-2021 take 1 mg by mouth once daily Bupropion Hcl Active 1 MG PO DAILY June 11, 2021 12:00am Comment on above: Take 1 tablet by priscila once daily. Via Psych with 180 Take 1 tablet by priscila th once daily. FLUoxetine 20 mg oral capsule (19 sources) Serotonin Reuptake Inhibitor Start: 06-11-20 End: 04-07-20 take 1 capsule by mouth once daily FLUoxetine (PROZAC) 20 mg capsule Indications: Anxiety and depression Take 1 capsule by mouth once daily. 90 capsule 3 2025 2026 Active Comment on above: Take 1 capsule by [facility] once daily. Via Psych with 180 Take 1 capsule by [facility] once daily. spironolactone 25 mg oral tablet (2 sources) Aldosterone Antagonist Start: 04-20-20 25 End: 05-23-20 take 1 tablet by mouth twice daily spironolactone (ALDACTONE) 25 mg tablet Indications: Hirsutism Take 1 tablet by mouth two times a day. 180 tablet 1 05/23/2025 Active Completed/Discontinued Medications Medication Drug Class(es) Dates Sig (Normalized) Sig (Original) fluticasone propionate 0.05 mg/actuat metered dose nasal spray (3 sources) Corticosteroid Start: 08-13-2022 End: 09-19-2023 take 2 spray(s) by mouth once daily fluticasone (FLONASE) 50 mcg/actuation nasal spray Use 2 Sprays in each nostril once daily. Rinse mouth after use. 1 Each 0 08/13/2022 09/19/2023 Discontinued (Other) Comment on above: Use 2 Sprays in each nostril once daily. Rinse mouth after use. hydrOXYzine pamoate 50 mg oral capsule (2 sources) Antihistamine Start: 06-11-2021 End: 11-19-2023 take 50 mg by mouth once daily Hydroxyzine Pamoate Discontinued 50 MG PO DAILY June 10, 2021 11:00pm November 19, 2023 10:14am Multivitamin (Daily-Carly) tablet (2 sources) Start: 06-11-2021 End: 11-19-2023 take 1 tablet by mouth once daily Multivitamin (Daily-Carly) tablet Discontinued 1 TABLET PO DAILY June 10, 2021 11:00pm November 19, 2023 10:14am Start: 06-11-2021 take 1 tablet by priscila th once daily Multivitamin (Daily-Carly) tablet Active 1 TABLET PO DAILY June 11, 2021 12:00am risperiDONE 1 mg oral tablet (5 sources) Atypical Antipsychotic Start: 06-11-2021 End: 11-19-2023 take 1 mg by mouth twice daily Risperidone Discontinued 1 MG PO TWICE A DAY June 10, 2021 11:00pm November 19, 2023 10:14am traZODone hydrochloride 50 mg oral tablet (3 sources) Serotonin Reuptake Inhibitor Start: 06-11-2021 End: 11-19-2023 take 50 mg by mouth at bedtime Trazodone Discontinued 50 MG PO AT BEDTIME 14 14 June 10, 2021 11:00pm November 19, 2023 10:15am Start: 06-11-2021 Trazodone Acti ve June 11, 2021 12:00am Problems Active Problems Problem Classification Problem Date Documented Date Episodic/Chronic Administrative/social admission (2 sources) Repeated prescription; Translations: [Encounter for issue of repeat prescription] 06-11-2021 Episodic Alcohol-related disorders (16 sources) History of alcohol abuse; Translations: [Alcohol abuse, in remission] Onset: 09-14-2021 09-14-2021 Chronic Anxiety disorders (19 sources) Mixed anxiety and depressive disorder; Translations: [Anxiety disorder, unspecified] Onset: 11-16-2019 09-14-2021 Chronic Headache; including migraine (15 sources) Migraine with aura; Translations: [Migraine with aura, not intractable, without status migrainosus] Onset: 04-10-2017 09-14-2021 Chronic Menstrual disorders (14 sources) Irregular periods; Translations: [Irregular menstruation, unspecified] Onset: 01-22-2018 09-14-2021 Chronic Mood disorders (17 sources) Bipolar affective disorder, currently manic, mild; Translations: [Bipolar disorder, current episode manic without psychotic features, mild] Onset: 11-16-2019 09-14-2021 Chronic Mood disorders (1 source) Mood disorders; Translations: [Anxiety and depression] Onset: 03-09-2024 Open wounds of extremities (1 source) Laceration of finger; Translations: [Laceration without foreign body of unspecified finger with damage to nail, initial encounter] 11-19-2023 Episodic Other connective tissue disease (1 source) Pain in thumb ; Translations: [Pain in right finger(s)] 11-19-2023 Episodic Other ear and sense organ disorders (1 source) Bilateral earache; Translations: [Otalgia, bilateral] Episodic Other skin disorders (2 sources) Hirsutism; Translations: [Hirsutism] 01-24-2025 Episodic Otitis media and related conditions (2 sources) Dysfunction of bilateral eustachian tubes; Translations: [Other specified disorders of Eustachian tube, bilateral] Episodic Substance-related disorders (20 sources) History of methamphetamine abuse; Translations: [Other stimulant abuse, in remission] Onset: 09-14-2021 09-14-2021 Chronic Suicide and intentional self-inflicted injury (4 sources) Suicide attempt by inadequate means; Translations: [Intentional self-harm by other specified means, initial encounter] 05-18-2021 Episodic Past or Other Problems Problem Classification Problem Date Documented Da te Episodic/Chronic Abdominal pain (1 source) Periumbilical pain; Translations: [Periumbilical pain] Onset: 07-23-2024 Episodic Genitourinary symptoms and ill-defined conditions (1 source) Dysuria; Translations: [Dysuria] Onset: 11-03-2024 Episodic Other gastrointestinal disorders (8 sources) Irritable bowel syndrome; Translations: [Irritable bowel syndrome without diarrhea] Onset: 03-29-2014 Resolved: 04-10-2017 04-10-2017 Chronic Other screening for suspected conditions (not mental disorders or infectious disease) (17 sources) Patient encounter status; Translations: [Encounter for screening for lipoid disorders] Onset: 05-07-2022 05-07-2022 Episodic Other skin disorders (1 source) Hirsutism; Translations: [Hirsutism] Onset: 05-23-2025 Episodic Urinary tract infections (1 source) Urinary tract infection, site not specified; Translations: [Urinary tract infection, site not specified] Onset: 10-08-2024 Episodic Results Test Name Value Interpretation Reference Range Facility .GFRon 09-18-2025 Estimated Glomerular Filtration Rate 87 ml/min/1.73sqm Normal [facility] Comment on above: Result Comment: Stages of Chronic Kidney Disease (CKD) Stage Description eGFR(ml/min/1.73 sq.m.) CKD 1 Normal kidney function or >=90 normal kindney function with possible kidney damage (ex. Proteinuria) CKD 2 Kidney damage with mild loss 60-89 of kidney function CKD 3a Mild to moderate loss of kidney 45-59 function CKD 3b Moderate to severe loss of 30-44 of kindey function CKD 4 Severe loss of kidney function 15-29 CKD 5 Kidney failure <15 Note: (go live 2025) the eGFR calculation was updated to the 2020 CKD-EPI creatinine equation without a race factor to calculate the eGFR results. Performed By: #### M DW, ANEU, ADIFF, ROGELIO, CK, CMP, TROPHS, GFR, ALC, CBC, ACETA #### [id number] [place], [place] [address] CKon 09-18-2025 CK [Catalytic activity/Vol] 101 U/L Normal 26-192 [facility] Comment on above: Performed By: #### M DW, ANEU, ADIFF, ROGELIO, CK, CMP, TROPHS, GFR, ALC, CBC, ACETA #### [facility] [address] [place], [place] [address] CMPon 09-18-2025 Albumin Level 4.1 G/dL Normal 3.5-5.0 [facility] Comment on above: Performed By: #### M DW, ANEU, ADIFF, ROGELIO, CK, CMP, TROPHS, GFR, ALC, CBC, ACETA #### [place] [address] Albumin/Globulin [Mass ratio] 1.2 {ratio} Normal 1.1-2.5 [facility] Comment on above: Performed By: #### M DW, ANEU, ADIFF, ROGELIO, CK, CMP, TROPHS, GFR, ALC, CBC, ACETA #### [place] [address] ALP [Catalytic activity/Vol] 51 U/L Normal 40-135 [facility] Comment on above: Performed By: #### M DW, ANEU, ADIFF, ROGELIO, CK, CMP, TROPHS, GFR, ALC, CBC, ACETA #### [place] [address] ALT [Catalytic activity/Vol] 13 U/L Low 14-59 [facility] Comment on above: Performed By: #### M DW, ANEU, ADIFF, ROGELIO, CK, CMP, TROPHS, GFR, ALC, CBC, ACETA #### [place] [address] AST [Catalytic activity/Vol] 9 U/L Low 10-40 [facility] Comment on above: Performed By: #### M DW, ANEU, ADIFF, ROGELIO, CK, CMP, TROPHS, GFR, ALC, CBC, ACETA #### [place] [id number] Bili Total 0.3 mg/dL Normal 0.2-1.0 [facility] Comment on above: Result Comment: Use of this assay is not recommended for patients undergoing treatment with eltrombopag due to the potential for falsely elevated results. Performed By: #### M DW, ANEU, ADIFF, ROGELIO, CK, CMP, TROPHS, GFR, ALC, CBC, ACETA #### [place] [address] BUN/Creatinine Ratio 14 ratio Normal 7-27 [facility] Comment on above: Performed By: #### M DW, ANEU, ADIFF, ROGELIO, CK, CMP, TROPHS, GFR, ALC, CBC, ACETA #### [address] [address] Calcium [Mass/Vol] 9.0 mg/dL Normal 8.4-10.2 [facility] Comment on above: Performed By: #### M DW, ANEU, ADIFF, ROGELIO, CK, CMP, TROPHS, GFR, ALC, CBC, ACETA #### [address] [address] Chloride [Moles/Vol] 102 mmol/L Normal 98-107 [facility] Comment on above: Performed By: #### M DW, ANEU, ADIFF, ROGELIO, CK, CMP, TROPHS, GFR, ALC, CBC, ACETA #### [place] [address] CO2 [Moles/Vol] 30 mmol/L High 22-29 [facility] Comment on above: Performed By: #### M DW, ANEU, ADIFF, ROGELIO, CK, CMP, TROPHS, GFR, ALC, CBC, ACETA #### [address] [address] Creatinine [Mass/Vol] 0.94 mg/dL Normal 0.51-0.95 [facility] Comment on above: Performed By: #### M DW, ANEU, ADIFF, ROGELIO, CK, CMP, TROPHS, GFR, ALC, CBC, ACETA #### [address] [address] Electrolyte Balance 4.0 mEq/L Normal 4.0-15.0 [facility] Comment on above: Performed By: #### M DW, ANEU, ADIFF, ROGELIO, CK, CMP, TROPHS, GFR, ALC, CBC, ACETA #### [address] [address] Globulin 3.4 G/dL Normal 2.7-4.4 [facility] Comment on above: Performed By: #### M DW, ANEU, ADIFF, ROGELIO, CK, CMP, TROPHS, GFR, ALC, CBC, ACETA #### [address] [address] Glucose [Mass/Vol] 107 mg/dL High 70-105 [facility] Comment on above: Performed By: #### M DW, ANEU, ADIFF, ROGELIO, CK, CMP, TROPHS, GFR, ALC, CBC, ACETA #### [address] [address] Potassium [Moles/Vol] 3.8 mmol/L Normal 3.5-5.1 [facility] Comment on above: Performed By: #### M DW, ANEU, ADIFF, ROGELIO, CK, CMP, TROPHS, GFR, ALC, CBC, ACETA #### [address] [address] Sodium [Moles/Vol] 136 mmol/L Normal 136-145 [facility] Comment on above: Performed By: #### M DW, ANEU, ADIFF, ROGELIO, CK, CMP, TROPHS, GFR, ALC, CBC, ACETA #### [address] [address] Total Protein 7.5 G/dL Normal 6.4-8.2 [facility] Comment on above: Performed By: #### M DW, ANEU, ADIFF, ROGELIO, CK, CMP, TROPHS, GFR, ALC, CBC, ACETA #### [address] [address] Urea nitrogen [Mass/Vol] 13 mg/dL Normal 7-18 [facility] Comment on above: Performed By: #### M DW, ANEU, ADIFF, ROGELIO, CK, CMP, TROPHS, GFR, ALC, CBC, ACETA #### [address] [address] COVPCRon 09-18-2025 SARS-CoV-2 (COVID-19) RNA DEBBY+probe Ql (Unsp spec) Negative Normal Negative [facility] Comment on above: Result Comment: Resu lts from the Xpert Xpress CoV-2/Flu/RSV plus test should be correlated with the clinical history, epidemiological data, and other data available to the clinical evaluating the patient. Performance of the Xpert Xpress CoV-2/Flu/RSV plus test has only been established in nasopharyngeal swab specimen. Erroneous test results might occur from improper specimen collection, failure to follow the recommended sample collection, handling and storage procedures, technical error, or sample mix-up. False negative results may occur if a virus is present at a level below the analytical limit of detection. Viral nucleic acid may persist in vivo, independent of virus viability. Detection of analyte target(s) does not imply that the corresponding virus(es) are infectious or are the causative agents for clinical symptoms. Recent patient exposure to FluMist or other live attenuated influenza vaccines may cause inaccurate positive results. Performed By: #### M DW, ANEU, ADIFF, ROGELIO, CK, CMP, TROPHS, GFR, ALC, CBC, ACETA #### [id number] [place] [address] 09-18-2025 High Sensitivity Troponin I 4 ng/L Normal 0-51 [facility] Comment on above: Result Comment: High Sensitive Troponin I Reference Ranges: Female: 0-51 ng/L Male: 0-76 ng/L Testing performed on [employer] using a homogeneous sandwich chemiluminescent immunoassay based on [employer] technology. Performed By: #### M DW, ANEU, ADIFF, ROGELIO, CK, CMP, TROPHS, GFR, ALC, CBC, ACETA #### [address] [address] UFENTSon 09-18-2025 Fentanyl (u) Negative Normal Negative [facility] Comment on above: Result Comment: Test ing has been performed FOR MEDICAL PURPOSES ONLY. Performed By: #### M DW, ANEU, ADIFF, ROGELIO, CK, CMP, TROPHS, GFR, ALC, CBC, ACETA #### [address] [address] UOXYSon 09-18-2025 Oxycodone (u) Negative Normal Negative [facility] Comment on above: Result Comment: Test ing has been performed FOR MEDICAL PURPOSES ONLY. Performed By: #### M DW, ANEU, ADIFF, ROGELIO, CK, CMP, TROPHS, GFR, ALC, CBC, ACETA #### [address] [address] .Auto Diffon 09-17-2025 Basophil, Absolute 0.1 10 3/mcL Normal 0.0-0.3 [facility] Comment on above: Performed By: #### M DW, ANEU, ADIFF, ROGELIO, CK, CMP, TROPHS, GFR, ALC, CBC, ACETA #### [address] [address] Basophils/100 WBC (Bld) 1.5 % Normal 0.0-2.5 [facility] Comment on above: Performed By: #### M DW, ANEU, ADIFF, ROGELIO, CK, CMP, TROPHS, GFR, ALC, CBC, ACETA #### [address] [address] Eosinophil, Absolute 0.2 10 3/mcL Normal 0.0-0.7 [facility] Comment on above: Performed By: #### M DW, ANEU, ADIFF, ROGELIO, CK, CMP, TROPHS, GFR, ALC, CBC, ACETA #### [address] [address] Eosinophils/100 WBC (Bld) 3.2 % Normal 0.0-6.0 [facility] Comment on above: Performed By: #### M DW, ANEU, ADIFF, ROGELIO, CK, CMP, TROPHS, GFR, ALC, CBC, ACETA #### [address] [address] Lymphocyte, Absolute 2.8 10 3/mcL Normal 0.9-4.3 [facility] Comment on above: Performed By: #### M DW, ANEU, ADIFF, ROGELIO, CK, CMP, TROPHS, GFR, ALC, CBC, ACETA #### [address] [address] Lymphocytes/100 WBC (Bld) 39.8 % Normal 20.0-40.0 [facility] Comment on above: Performed By: #### M DW, ANEU, ADIFF, ROGELIO, CK, CMP, TROPHS, GFR, ALC, CBC, ACETA #### [address] [address] Monocyte, Absolute 0.5 10 3/mcL Normal 0.1-1.4 [facility] Comment on above: Performed By: #### M DW, ANEU, ADIFF, ROGELIO, CK, CMP, TROPHS, GFR, ALC, CBC, ACETA #### [address] [address] Monocytes/100 WBC (Bld) 7.5 % Normal 2.0-13.0 [facility] Comment on above: Performed By: #### M DW, ANEU, ADIFF, ROGELIO, CK, CMP, TROPHS, GFR, ALC, CBC, ACETA #### [address] [address] Neutrophils/100 WBC (Bld) 48.0 % Low 50.0-75.0 [facility] Comment on above: Performed By: #### M DW, ANEU, ADIFF, ROGELIO, CK, CMP, TROPHS, GFR, ALC, CBC, ACETA #### [address] [address] .MDWon 09-17-2025 Monocyte Distribution Width 17.09 Normal 0.00-20.00 [facility] Comment on above: Result Comment: For ED adult patients suspected of sepsis, MDW<=20.0 does not rule out sepsis or risk of sepsis Performed By: #### M DW, ANEU, ADIFF, ROGELIO, CK, CMP, TROPHS, GFR, ALC, CBC, ACETA #### [address] [address] .NEUABSon 09-17-2025 Neutrophil, Absolute 3.4 10 3/mcL Normal 2.3-8.1 [facility] Comment on above: Performed By: #### M DW, ANEU, ADIFF, ROGELIO, CK, CMP, TROPHS, GFR, ALC, CBC, ACETA #### [place] [address] ACETAon 09-17-2025 Acetaminophen [Mass/Vol] 0.0 ug/mL Low 10.0-30.0 [facility] Comment on above: Performed By: #### M DW, ANEU, ADIFF, ROGELIO, CK, CMP, TROPHS, GFR, ALC, CBC, ACETA #### [address] [address] Lexi 09-17-2025 Ethanol Level 5 mg/dL Normal [facility] Comment on above: Performed By: #### M DW, ANEU, ADIFF, ROGELIO, CK, CMP, TROPHS, GFR, ALC, CBC, ACETA #### [place] [address] CBCon 09-17-2025 Erythrocyte distribution width (RBC) [Ratio] 13.5 % Normal 11.5-15.5 [facility] Comment on above: Performed By: #### M DW, ANEU, ADIFF, ROGELIO, CK, CMP, TROPHS, GFR, ALC, CBC, ACETA #### [place] [address] Hematocrit (Bld) [Volume fraction] 40.3 % Normal 34.0-46.0 [facility] Comment on above: Performed By: #### M DW, ANEU, ADIFF, ROGELIO, CK, CMP, TROPHS, GFR, ALC, CBC, ACETA #### [address] [address] Hgb 13.8 G/dL Normal 12.0-16.0 [facility] Comment on above: Performed By: #### M DW, ANEU, ADIFF, ROGELIO, CK, CMP, TROPHS, GFR, ALC, CBC, ACETA #### [address] [address] MCH (RBC) [Entitic mass] 31.7 pg Normal 27.0-33.0 [facility] Comment on above: Performed By: #### M DW, ANEU, ADIFF, ROGELIO, CK, CMP, TROPHS, GFR, ALC, CBC, ACETA #### [address] [address] MCHC 34.3 G/dL Normal 32.0-36.0 [facility] Comment on above: Performed By: #### M DW, ANEU, ADIFF, ROGELIO, CK, CMP, TROPHS, GFR, ALC, CBC, ACETA #### [address] [address] MCV (RBC) [Entitic vol] 92.3 fL Normal 80.0-99.0 [facility] Comment on above: Performed By: #### M DW, ANEU, ADIFF, ROGELIO, CK, CMP, TROPHS, GFR, ALC, CBC, ACETA #### [address] [address] Platelet 271 10 3/mcL Normal 150-450 [facility] Comment on above: Performed By: #### M DW, ANEU, ADIFF, ROGELIO, CK, CMP, TROPHS, GFR, ALC, CBC, ACETA #### [place] [address] Platelet mean volume (Bld) [Entitic vol] 7.2 fL Normal 6.6-10.5 [facility] Comment on above: Performed By: #### M DW, ANEU, ADIFF, ROGELIO, CK, CMP, TROPHS, GFR, ALC, CBC, ACETA #### [address] [address] RBC 4.37 10 6/mcL Normal 4.10-5.30 [facility] Comment on above: Performed By: #### M DW, ANEU, ADIFF, ROGELIO, CK, CMP, TROPHS, GFR, ALC, CBC, ACETA #### [address] [address] WBC 7.0 10 3/mcL Normal 4.5-10.8 [facility] Comment on above: Performed By: #### M DW, ANEU, ADIFF, ROGELIO, CK, CMP, TROPHS, GFR, ALC, CBC, ACETA #### [address] [address] LABORATORYOrdered By: Abdoul Rahman on 09-17-2025 Acetaminophen [Mass/Vol] 0.0 ug/mL Low 10.0 - 30.0 mcg/mL AO Chemistry S Amphetamines Screen Ql (U) Negative *NA* (09/17/25 11:19 PM) Invalid Interpretation Code Negative AO ADM SS Barbiturates Screen Ql (U) Negative *NA* (09/17/25 11:19 PM) Invalid Interpretation Code Negative AO ADM SS Benzodiazepines Ql (U) Negative *NA* (09/17/25 11:19 PM) Invalid Interpretation Code Negative AO ADM SS Benzoylecgonine Screen Ql (U) Negative *NA* (09/17/25 11:19 PM) Invalid Interpretation Code Negative AO ADM SS Cannabinoids Screen Ql (U) Negative *NA* (09/17/25 11:19 PM) Invalid Interpretation Code Negative AO ADM SS Color (U) Yellow (09/17/25 11:19 PM) Normal Yellow AO Auto Urine SS Glucose (U) [Mass/Vol] Negative Normal Negative AO Auto Urine SS HCG ( test) Ql Negative (09/17/25 11:19 PM) Normal AO Manual Urine SS Ketones Ql (U) Negative Normal Negative AO Auto Urine SS Methadone Screen Ql (U) Negative *NA* (09/17/25 11:19 PM) Invalid Interpretation Code Negative AO ADM SS Opiates Screen Ql (U) Negative *NA* (09/17/25 11:19 PM) Invalid Interpretation Code Negative AO ADM SS Phencyclidine Ql (U) Negative *NA* (09/17/25 11:19 PM) Invalid Interpretation Code Negative AO ADM SS test (u) int Not detected Invalid Interpretation Code AO Manual Urine SS SARS-CoV-2 (COVID-19) RNA DEBBY+probe Ql (Resp) Negative 8 (09/17/25 11:19 PM) Normal Negative AO Auto Urine SS Comment on above: Interpretive Data: R esults from the Xpert Xpress CoV-2/Flu/RSV plus test should be correlated with the clinical history, epidemiological data, and other data available to the clinical evaluating the patient. Performance of the Xpert Xpress CoV-2/Flu/RSV plus test has only been established in nasopharyngeal swab specimen. Erroneous test results might occur from improper specimen collection, failure to follow the recommended sample collection, handling and storage procedures, technical error, or sample mix-up. False negative results may occur if a virus is present at a level below the analytical limit of detection. Viral nucleic acid may persist in vivo, independent of virus viability. Detection of analyte target(s) does not imply that the corresponding virus(es) are infectious or are the causative agents for clinical symptoms. Recent patient exposure to FluMist or other live attenuated influenza vaccines may cause inaccurate positive results. UA Appear Clear (09/17/25 11:19 PM) Normal Clear AO Auto Urine SS UA Bili Negative (09/17/25 11:19 PM) Normal Negative AO Auto Urine SS UA Blood Negative (09/17/25 11:19 PM) Normal Negative AO Auto Urine SS UA Leuk Est Negative (09/17/25 11:19 PM) Normal Negative AO Auto Urine SS UA Nitrite Negative (09/17/25 11:19 PM) Normal Negative AO Auto Urine SS UA pH 6.0 (09/17/25 11:19 PM) Normal 5.0 - 8.0 AO Auto Urine SS UA Protein Negative Normal Negative AO Auto Urine SS UA Spec Grav <=1.005 *ABN* (09/17/25 11:19 PM) Invalid Interpretation Code 1.015-1.025 AO Auto Urine SS UA Specimen Type Clean Catch (09/17/25 11:19 PM) Normal AO Auto Urine SS UA Urobilinogen 0.2 E.U./dL Normal 0.2-1.0 AO Auto Urine SS Urine Drugs screened: See Below 6 (09/17/25 11:19 PM) Normal AO Chemistry S Comment on above: Interpretive Data: T his drug screen is a presumptive screening only. No confirmation will be performed unless requested. Drugs screened include: Threshold Amphetamines/Methamphetamines 1,000 ng/mL Barbiturates 200 ng/mL Benzodiazepine metabolites 200 ng/mL Cannabinoids (THC metabolites) 50 ng/mL Cocaine 300 ng/mL Opiates 300 ng/mL Methadone 300 ng/mL Phencyclidine (PCP) 25 ng/mL Testing has been performed FOR MEDICAL PURPOSES ONLY. LABORATORYOrdered By: SYSTEM SYSTEM on 09-17-2025 Albumin BCP dye [Mass/Vol] 4.1 G/dL Normal 3.5 - 5.0 G/dL AO ADM SS Albumin/Globulin [Mass ratio] 1.2 {ratio} Normal 1.1 - 2.5 ratio AO ADM SS ALP [Catalytic activity/Vol] 51 U/L Normal 40 - 135 U/L AO ADM SS ALT With P-5'-P [Catalytic activity/Vol] 13 U/L Low 14 - 59 U/L AO ADM SS AST With P-5'-P [Catalytic activity/Vol] 9 U/L Low 10 - 40 U/L AO ADM SS Basophils (Bld) [#/Vol] 0.1 103/mcL Normal 0.0 - 0.3 10^3/mcL AO Workflow SS Basophils/100 WBC (Bld) 1.5 % Normal 0.0 - 2.5 % AO Workflow SS Bilirubin [Mass/Vol] 0.3 mg/dL Normal 0.2 - 1 .0 mg/dL AO ADM SS Comment on above: Interpretive Data: U se of this assay is not recommended for patients undergoing treatment with eltrombopag due to the potential for falsely elevated results. Calcium [Mass/Vol] 9.0 mg/dL Normal 8.4 - 10. 2 mg/dL AO ADM SS Chloride [Moles/Vol] 102 mmol/L Normal 98 - 10 7 mmol/L AO ADM SS CK [Catalytic activity/Vol] 101 U/L Normal 26 - 192 U/L AO ADM SS CO2 [Moles/Vol] 30 mmol/L High 22 - 29 mmol/L AO ADM SS Creatinine [Mass/Vol] 0.94 mg/dL Normal 0.51 - 0.95 mg/dL AO ADM SS Electrolyte Balance 4.0 mEq/L Normal 4.0 - 15 .0 mEq/L AO ADM SS Eosinophil, Absolute 0.2 103/mcL Normal 0.0 - 0 .7 10^3/mcL AO Workflow SS Eosinophils/100 WBC (Bld) 3.2 % Normal 0.0 - 6.0 % AO Workflow SS Erythrocyte distribution width (RBC) [Ratio] 13.5 % Normal 11.5 - 15.5 % AO Workflow SS Ethanol [Mass/Vol] 5 mg/dL Invalid Interpretation Code AO ADM SS Globulin 3.4 G/dL Normal 2.7 - 4.4 G/dL AO ADM SS GLOMERULAR FILTRATION RATE/1.73 SQ M.PREDICTED:ARVRAT:P T:SER/PLAS/BLD:QN:CR EATININE-BASED FORMULA (CKD-EPI 2020) 87 ml/min/1.73sqm Invalid Interpretation Code AO Chemistry S Comment on above: Interpretive Data: Stages of Chronic Kidney Disease (CKD) Stage Description eGFR(ml/min/1.73 sq.m.) CKD 1 Normal kidney function or >=90 normal kindney function with possible kidney damage (ex. Proteinuria) CKD 2 Kidney damage with mild loss 60-89 of kidney function CKD 3a Mild to moderate loss of kidney 45-59 function CKD 3b Moderate to severe loss of 30-44 of kindey function CKD 4 Severe loss of kidney function 15-29 CKD 5 Kidney failure <15 Note: (go live 2025) the eGFR calculation was updated to the 2020 CKD-EPI creatinine equation without a race factor to calculate the eGFR results. Glucose [Mass/Vol] 107 mg/dL High 70 - 105 mg/dL AO ADM SS Hematocrit (Bld) [Volume fraction] 40.3 % Normal 34.0 - 46.0 % AO Workflow SS Hemoglobin (Bld) [Mass/Vol] 13.8 G/dL Normal 12.0 - 16.0 G/dL AO Workflow SS Lymphocytes (Bld) [#/Vol] 2.8 103/mcL Normal 0.9 - 4.3 10^3/mcL AO Workflow SS Lymphocytes/100 WBC (Bld) 39.8 % Normal 20.0 - 40.0 % AO Workflow SS MCH (RBC) [Entitic mass] 31.7 pg Normal 27.0 - 33.0 pg AO Workflow SS MCHC 34.3 G/dL Normal 32.0 - 36.0 G/dL AO Workflow SS MCV (RBC) [Entitic vol] 92.3 fL Normal 80.0 - 99.0 fL AO Workflow SS Monocyte distribution width Auto (Bld) [Entitic vol] 17.09 1 Normal 0.00 - 20.00 AO Workflow SS Comment on above: Result Comment: For ED adult patients suspected of sepsis, MDW<=20.0 does not rule out sepsis or risk of sepsis Monocytes (Bld) [#/Vol] 0.5 103/mcL Normal 0.1 - 1.4 10^3/mcL AO Workflow SS Monocytes/100 WBC (Bld) 7.5 % Normal 2.0 - 13.0 % AO Workflow SS Neutrophils (Bld) [#/Vol] 3.4 103/mcL Normal 2.3 - 8.1 10^3/mcL AO Workflow SS Neutrophils/100 WBC (Bld) 48.0 % Low 50.0 - 75.0 % AO Workflow SS Platelet mean volume (Bld) [Entitic vol] 7.2 fL Normal 6.6 - 10.5 fL AO Workflow SS Platelets (Bld) [#/Vol] 271 103/mcL Normal 150 - 450 10^3/mcL AO Workflow SS Potassium [Moles/Vol] 3.8 mmol/L Normal 3.5 - 5.1 mmol/L AO ADM SS Protein [Mass/Vol] 7.5 G/dL Normal 6.4 - 8.2 G/dL AO ADM SS RBC (Bld) [#/Vol] 4.37 106/mcL Normal 4.10 - 5.3 0 10^6/mcL AO Workflow SS Salicylates [Mass/Vol] 1.7 mg/dL Low 2.8 - 20.0 mg/dL AO ADM SS Sodium [Moles/Vol] 136 mmol/L Normal 136 - 145 mmol/L AO ADM SS Troponin I.cardiac DL <= 0.01 ng/mL [Mass/Vol] 4 ng/L Normal 0 - 51 ng/L AO ADM SS Comment on above: Interpretive Data: H igh Sensitive Troponin I Reference Ranges: Female: 0-51 ng/L Male: 0-76 ng/L Testing performed on [employer] using a homogeneous sandwich chemiluminescent immunoassay based on [employer] technology. Urea nitrogen [Mass/Vol] 13 mg/dL Normal 7 - 18 mg/dL AO ADM SS Urea nitrogen/Creatinine [Mass ratio] 14 ratio Normal 7 - 27 ratio AO ADM SS WBC (Bld) [#/Vol] 7.0 103/mcL Normal 4.5 - 10.8 10^3/mcL AO Workflow SS LABORATORYOrdered By: Harmony Maldonado on 09-17-2025 fentaNYL Screen Ql (U) Negative 2 *NA* (09/17/25 11:19 PM) Invalid Interpretation Code Negative ADM SS Comment on above: Interpretive Data: T esting has been performed FOR MEDICAL PURPOSES ONLY. oxyCODONE Ql (U) Negative 3 *NA* (09/17/25 11:19 PM) Invalid Interpretation Code Negative ADM SS Comment on above: Interpretive Data: T esting has been performed FOR MEDICAL PURPOSES ONLY. PREGUon 09-17-2025 HCG ( test) Ql (U) Negative Normal [facility] Comment on above: Performed By: #### M DW, ANEU, ADIFF, ROGELIO, CK, CMP, TROPHS, GFR, ALC, CBC, ACETA #### [place] [id number] test (u) int Not detected Invalid Interpretation Code [facility] Comment on above: Performed By: #### M DW, ANEU, ADIFF, ROGELIO, CK, CMP, TROPHS, GFR, ALC, CBC, ACETA #### [place] [id number] SALon 09-17-2025 Salicylate Level 1.7 mg/dL Low 2.8-20.0 [facility] Comment on above: Performed By: #### M DW, ANEU, ADIFF, ROGELIO, CK, CMP, TROPHS, GFR, ALC, CBC, ACETA #### [place] [address] UDRUGon 09-17-2025 Amphetamine (u) Negative Normal Negative [facility] Comment on above: Performed By: #### M DW, ANEU, ADIFF, ROGELIO, CK, CMP, TROPHS, GFR, ALC, CBC, ACETA #### [place] [address] Barbiturate (u) Negative Normal Negative [facility] Comment on above: Performed By: #### M DW, ANEU, ADIFF, ROGELIO, CK, CMP, TROPHS, GFR, ALC, CBC, ACETA #### [place] [address] Benzodiazepine (u) Negative Normal Negative [facility] Comment on above: Performed By: #### M DW, ANEU, ADIFF, ROGELIO, CK, CMP, TROPHS, GFR, ALC, CBC, ACETA #### [place] [address] Cannabinoid (u) Negative Normal Negative [facility] Comment on above: Performed By: #### M DW, ANEU, ADIFF, ROGELIO, CK, CMP, TROPHS, GFR, ALC, CBC, ACETA #### [place] [address] Cocaine Ql (U) Negative Normal Negative [facility] Comment on above: Performed By: #### M DW, ANEU, ADIFF, ROGELIO, CK, CMP, TROPHS, GFR, ALC, CBC, ACETA #### [address] [address] Methadone Ql (U) Negative Normal Negative [facility] Comment on above: Performed By: #### M DW, ANEU, ADIFF, ROGELIO, CK, CMP, TROPHS, GFR, ALC, CBC, ACETA #### [address] [address] Opiate (u) Negative Normal Negative [facility] Comment on above: Performed By: #### M DW, ANEU, ADIFF, ROGELIO, CK, CMP, TROPHS, GFR, ALC, CBC, ACETA #### [address] [address] PCP (u) Negative Normal Negative [facility] Comment on above: Performed By: #### M DW, ANEU, ADIFF, ROGELIO, CK, CMP, TROPHS, GFR, ALC, CBC, ACETA #### [address] [address] Urine Drugs screened: See Below Normal [facility] Comment on above: Result Comment: This drug screen is a presumptive screening only. No confirmation will be performed unless requested. Drugs screened include: Threshold Amphetamines/Methamphetamines 1,000 ng/mL Barbiturates 200 ng/mL Benzodiazepine metabolites 200 ng/mL Cannabinoids (THC metabolites) 50 ng/mL Cocaine 300 ng/mL Opiates 300 ng/mL Methadone 300 ng/mL Phencyclidine (PCP) 25 ng/mL Testing has been performed FOR MEDICAL PURPOSES ONLY. Performed By: #### M DW, ANEU, ADIFF, ROGELIO, CK, CMP, TROPHS, GFR, ALC, CBC, ACETA #### [address] [address] URINon 09-17-2025 Color (U) Yellow Normal Yellow [facility] Comment on above: Performed By: #### M DW, ANEU, ADIFF, ROGELIO, CK, CMP, TROPHS, GFR, ALC, CBC, ACETA #### [place] [address] Glucose (U) [Mass/Vol] Negative Normal Negative [facility] Comment on above: Performed By: #### M DW, ANEU, ADIFF, ROGELIO, CK, CMP, TROPHS, GFR, ALC, CBC, ACETA #### [place] [address] Ketones Ql (U) Negative Normal Negative [facility] Comment on above: Performed By: #### M DW, ANEU, ADIFF, ROGELIO, CK, CMP, TROPHS, GFR, ALC, CBC, ACETA #### [place] [address] UA Appear Clear Normal Clear [facility] Comment on above: Performed By: #### M DW, ANEU, ADIFF, ROGELIO, CK, CMP, TROPHS, GFR, ALC, CBC, ACETA #### [place] [address] UA Blood Negative Normal Negative [facility] Comment on above: Performed By: #### M DW, ANEU, ADIFF, ROGELIO, CK, CMP, TROPHS, GFR, ALC, CBC, ACETA #### [place] [address] UA Leuk Est Negative Normal Negative [facility] Comment on above: Performed By: #### M DW, ANEU, ADIFF, ROGELIO, CK, CMP, TROPHS, GFR, ALC, CBC, ACETA #### [place] [address] UA Nitrite Negative Normal Negative [facility] Comment on above: Performed By: #### M DW, ANEU, ADIFF, ROGELIO, CK, CMP, TROPHS, GFR, ALC, CBC, ACETA #### [place] [address] UA pH 6.0 Normal 5.0 - 8.0 [facility] Comment on above: Performed By: #### M DW, ANEU, ADIFF, ROGELIO, CK, CMP, TROPHS, GFR, ALC, CBC, ACETA #### [address] [address] UA Protein Negative Normal Negative [facility] Comment on above: Performed By: #### M DW, ANEU, ADIFF, ROGELIO, CK, CMP, TROPHS, GFR, ALC, CBC, ACETA #### [address] [address] UA Spec Grav <=1.005 Abnormal 1.015-1.025 [facility] Comment on above: Performed By: #### M DW, ANEU, ADIFF, ROGELIO, CK, CMP, TROPHS, GFR, ALC, CBC, ACETA #### [place] [address] UA Specimen Type Clean Catch Normal [facility] Comment on above: Performed By: #### M DW, ANEU, ADIFF, ROGELIO, CK, CMP, TROPHS, GFR, ALC, CBC, ACETA #### [place] [address] UA Urobilinogen 0.2 E.U./dL Normal 0.2-1.0 [facility] Comment on above: Performed By: #### M DW, ANEU, ADIFF, ROGELIO, CK, CMP, TROPHS, GFR, ALC, CBC, ACETA #### [address] [address] Urobilinogen (U) [Mass/Vol] Negative Normal Negative [facility] Comment on above: Performed By: #### M DW, ANEU, ADIFF, ROGELIO, CK, CMP, TROPHS, GFR, ALC, CBC, ACETA #### [place] [address] CNOVon 05-23-2025 CNOV Office Visit (FAMPWS ) ----- JILL SORIA ([id number]) 2 F Date Time Provider Department 05/23/25 10:40 AM DARLING BRANHAM During your visit today, we recorded the following information about you: Pulse Respiration Blood pressure 81/minute 16/minute 109/71 Darling Branham APRN.CNP 05/23/2025 12:24 PM Signed This is a 25 year old female who presents today with: Patient presents with: Follow Up HISTORY OF PRESENT ILLNESS: Jill Soria is a 25 year old female. Patient presents with: Follow Up Here to follow-up on spironolactone. Refers that she feels like it is working. Notices slowing of hair growth. No side effects. Admits that doesn't always take twice daily. PAST MEDICAL HISTORY: PAST MEDICAL HISTORY Diagnosis Date Anxiety and depression 11/16/2019 Bipolar affective disorder, currently manic, mild ([facility]) 11/16/2019 History of alcohol abuse 09/14/2021 Sober since 07/20/2021, attending [facility] and [facility] History of methamphetamine abuse ([facility]) 09/14/2021 Sober since 06/07/2021 Doing 180 and NA Irregular menses 01/22/2018 Irritable bowel syndrome 03/29/2014 Major depressive disorder 10/19/2014 See notes from counseling Center Migraine with aura and without status migrainosus, not intractable 04/10/2017 PAST SURGICAL HISTORY Procedure Laterality Date D+C NONE ALLERGIES Amoxicillin MEDICATIONS Current Outpatient Medications Medication Sig spironolactone (ALDACTONE) 25 mg tablet Take 1 tablet by mouth two times a day. buPROPion SR (WELLBUTRIN SR) 100 mg 12 hr tablet Take 1 tablet by mouth once daily. FLUoxetine (PROZAC) 20 mg capsule Take 1 capsule by mouth once daily. No current facility-administered medications for this visit. FAMILY HISTORY Problem Relation Age of Onset Heart Maternal Grandmother Hypertension Maternal Grandmother Ischemic Heart Disease Maternal Grandmother Breast Cancer Paternal Grandmother Breast Cancer Paternal Aunt Social History Tobacco Use Smoking status: Every Day Current packs/day: 0.00 Types: Cigarettes Last attempt to quit: 05/19/2022 Years since quittin.0 Smokeless tobacco: Never Tobacco comments: 12/04-12/02 ppd Vaping Use Vaping status: Never Used Substance Use Topics Alcohol use: No Drug use: Not Currently EXAM: BP 109/71 Pulse 81 Resp 16 LMP 12/28/2024 SpO2 100% PHYSICAL EXAM: General Appearance: Well appearing, alert, in no acute distress, well-hydrated, well nourished.. Skin: Skin color, texture, turgor normal, no suspicious rashes or lesions. Head: Normocephalic, no masses, lesions, tenderness or abnormalities. Eyes: Anicteric sclera. Extraocular movements are intact. . Lungs: Lungs clear to auscultation. No wheezing, rhonchi, rales. Heart: RRR without murmur, gallop, or rubs. No ectopy. Neurologic: Gait normal. ASSESSMENT/PLAN: 1. Hirsutism - ICD9: 704.1, ICD10: L68.0 Improving. Refill spironolactone. Get BMP. She can take 50 mg once daily if has trouble remembering to take twice daily. - SPIRONOLACTONE 25 MG TABLET Discussed treatment plan and patient voices understanding. Patient's questions answered appropriately. Medications and potential side effects were discussed and patient voices understanding. Return to the office as scheduled or as needed for worsening/no improvement. Darling Branham APRN.Darling Wright APRN.VITO 05/23/2025 11:08 AM Addendum Continue same medication. Get labs checked at some point soon. Allergies As of Date: 05/23/2025 Noted Allergy Reaction AMOXICILLIN 01/02/2016 2 - Rash Date Reviewed: 05/23/2025 Reviewed by: Fran Gutierrez LPN - Fully Assessed Reason for Visit: Follow Up [171] Primary Visit Diagnosis:Hirsutism [L68.0] Order(s):spironolactone (ALDACTONE) 25 mg tabletTake 1 tablet by mouth two times a day.Disp: 180 tabletRfl: 1 Prescriptions as of 05/23/2025 - spironolactone (ALDACTONE) 25 mg tablet Take 1 tablet by mouth two times a day. - buPROPion SR (WELLBUTRIN SR) 100 mg 12 hr tablet Take 1 tablet by mouth once daily. - FLUoxetine (PROZAC) 20 mg capsule Take 1 capsule by mouth once daily. Problem List As Of Date 05/23/2025 Noted Resolved Irritable bowel syndrome [K58.9] 03/29/2014 04/10/2017 Migraine with aura and without status migrainos*04/10/2017 Irregular menses [N92.6] 01/22/2018 Bipolar affective disorder, currently manic, mi*11/16/2019 Anxiety and depression [F41.9, F32.A] 11/16/2019 History of alcohol abuse [F10.11] 09/14/2021 History of methamphetamine abuse (HCC) [F15.11] 09/14/2021 Screening for diabetes mellitus [Z13.1] 05/07/2022 Well adult exam [Z00.00] 07/22/2024 Smoker [F17.200] 2025 Other instructions from your clinician: Continue same medication. Get labs checked at some point soon. Prescriptions ordered this encounter Disp Refills Start End SPIRONOLACTONE 25 MG TABLET (more content not included)... Normal [facility] CNOVon 2025 CNOV Office Visit (FAMPWS ) ----- ESTELLAJILL Rowan ([id number]) 2 F Date Time Provider Department 04/07/25 1:20 PM CHRISTIANA BRIONES [facility] During your visit today, we recorded the following information about you: Temperature Pulse Respiration Blood pressure 98.4 degrees 96/minute 16/minute 110/70 Weight 59.9 kg Christiana Briones PA-C 2025 1:48 PM Signed Chief Complaint Patient presents with: Rx Refills HPI Jill Rowan Estella is a 25 year old female who presents here today for Chronic Medical Conditions.. Patient with hx of anxiety/depression, bipolar, hx oa alcohol/drug abuse, migraine, and those as below. Smokes 5-10 cig/day . Not interested in quitting yet. Past medical history, appointments, medications, allergies reviewed. Previous Medical History PAST MEDICAL HISTORY Diagnosis Date Anxiety and depression 11/16/2019 Bipolar affective disorder, currently manic, mild ([facility]) 11/16/2019 History of alcohol abuse 09/14/2021 Sober since 07/20/2021, attending [facility] and [facility] History of methamphetamine abuse ([facility]) 09/14/2021 Sober since 06/07/2021 Doing 180 and NA Irregular menses 01/22/2018 Irritable bowel syndrome 03/29/2014 Major depressive disorder 10/19/2014 See notes from counseling Center Migraine with aura and without status migrainosus, not intractable 04/10/2017 Previous Surgical History PAST SURGICAL HISTORY Procedure Laterality Date D+C NONE Family History FAMILY HISTORY Problem Relation Age of Onset Heart Maternal Grandmother Hypertension Maternal Grandmother Ischemic Heart Disease Maternal Grandmother Breast Cancer Paternal Grandmother Breast Cancer Paternal Aunt Patient Allergies ALLERGIES Allergen Reactions Amoxicillin Rash Current Medications Current Outpatient Medications on File Prior to Visit Medication Sig FLUoxetine (PROZAC) 20 mg capsule Take 1 capsule by mouth once daily. buPROPion SR (WELLBUTRIN SR) 100 mg 12 hr tablet Take 1 tablet by mouth once daily. No current facility-administered medications on file prior to visit. Social History Social History Tobacco Use Smoking status: Every Day Current packs/day: 0.00 Types: Cigarettes Last attempt to quit: 05/19/2022 Years since quittin.8 Smokeless tobacco: Never Tobacco comments: 12/04-12/02 ppd Vaping Use Vaping status: Never Used Substance Use Topics Alcohol use: No Drug use: Not Currently Review of Symptoms REVIEW OF SYSTEMS GENERAL: No weight loss, malaise or fevers NECK: Negative for lumps, goiter, pain and significant neck swelling RESPIRATORY: Negative for cough, hemoptysis, wheezing, COPD, dyspnea or shortness of breath CARDIOVASCULAR: Negative for chest pain, leg swelling, hypertension, CHF or palpitations NEURO: No history of headaches, syncope, paralysis, seizures or tremors SEE HPI EXAM: BP 110/70 (BP Site: Left Arm, BP Position: Sitting, BP Cuff Size: Regular Adult) Pulse 96 Temp 36.9 ?C (98.4 ?F) Resp 16 Wt 59.9 kg (132 lb) LMP 12/28/2024 SpO2 97% BMI 22.26 kg/m? General Appearance: Well appearing, alert, in no acute distress, well-hydrated, well nourished.. Neck: Supple, no adenopathy; thyroid symmetric, normal size, no bruits. Lungs: Lungs clear to auscultation. No wheezing, rhonchi, rales.. Heart: RRR without murmur, gallop, or rubs. No ectopy. Extremities: No deformities, edema, skin discoloration, clubbing or cyanosis. Good capillary refill. . Peripheral Pulses: Normal. Health Maintenance List GC (Gonorrhea) Screening (18-24) due on 07/22/2025 Chlamydia Screening (18-24) due on 07/22/2025 DTaP,Tdap,Td Vaccine(7 - Td or Tdap) due on 2026 Covid-19 Vaccine(3 - season) due on 2026 Cervical Cancer Screening due on 05/05/2026 Hepatitis B Vaccine Completed HPV Vaccine Completed Influenza Vaccine Completed Hepatitis C Screening Completed HIV Screening Completed Data reviewed Assessment and Plan ASSESSMENT/PLAN: 1. Anxiety and depression - ICD9: 300.00, 311, ICD10: F41.9, F32.A (primary diagnosis) Stable Refills sent - FLUOXETINE 20 MG CAPSULE 2. Smoker - ICD9: 305.1, ICD10: F17.200 - Cessation encouraged. - Physiologic and physical aspects of tobacco addiction as well as strategies for quitting were discussed. - Counseling was given focusing on the harmful effects of this addiction especially given the patient's medical condition(s) which will be worsened because of the chemicals in tobacco. 3. Bipolar affective disorder, currently manic, mild (HCC) - ICD9: 296.41, ICD10: F31.11 Stable. Follow up yearly. Christiana Briones PA-C Allergies As of Date: 2025 Noted Allergy Reaction AMOXICILLIN 01/02/2016 2 - Rash Date Reviewed: 2025 Reviewed by: Tara Ramon LPN - Fully Assessed Reason for Visit: Rx Refills [128] Primary Visit Diagnosis:Anxiety and de (more content not included)... Normal [facility] Urgent Care Visit Reporton 0 03-25-2025 Urgent Care Visit Report [facility] [address] , [address] [place] [address] OFFICE VISIT Date of Service: 03/25/25 MR#: [id number] Acct: [id number] Name: JILL SORIA Rep #: [id number] : 2000 Provider: VANNA Sim Age/Sex: 24/F Location: [facility] Status: Signed Intake Vital Signs 10/08/24 09:18 03/25/25 07:25 Height 5 ft 3 in Weight: 138 lb BMI 24.4 BP 108/62 104/72 Blood Pressure Location Lt brachial Lt brachial Position Sitting Sitting Respiration 12 15 Pulse 100 80 Pulse Source Monitor NIBP Temp 98.6 F 98.1 F Temp Source Oral Oral Pulse Oximetry (%) 97 100 Oxygen Delivery Method room air room air Intake Visit Reasons: COUGH,SORE THROAT, CHEST CONGESTION Chief Complaint: cough, ST, congest Drafter Geological Required: No Is patient in pain?: No Allergies amoxicillin Allergy (Verified 03/25/25 07:26) Hives Is last menstrual period known: No Post menopausal: No Patient : No Have you fallen in the past year?: No Nurse's Note: cough, ST, congestion x 1 week. denies CELAYA, BA, fever. [facility] Medical History Bipolar disorder Alcohol abuse Anxiety Depression Substance abuse Migraines Family History Father Heart disease Aunt Cancer Other Thyroid disorder Social History Smoking Status: Current every day smoker tobacco type: cigarettes alcohol intake: current alcohol intake frequency: 0-2 drinks per day Alcohol type: beer substance use type: methamphetamine HPI HPI Chief Complaint: cough, ST, congest Details: JILL SORIA, is a 24 F who presents to the office today for complaint of cough, sore throat and congestion for the past week. Patient states that this has not improved at all and may actually be getting slightly worse. She denies hemoptysis, shortness of breath or difficulty breathing. No nausea, vomiting or diarrhea. No loss of taste or smell. No other associated symptoms or alleviating/aggravating factors. ROS Const Constitutional: No other (6 system ROS completed with pertinent findings in HPI otherwise normal.) Exam Const General: cooperative and well developed HENVA Head: normal to inspection and atraumatic Ears: hearing grossly normal bilaterally Nose: nasal discharge clear Face and sinus: normal facial exam Mouth: oral mucosae normal Throat: abnormal tonsil bilaterally hypertrophy 1+ Resp Effort Inspection: normal respiratory effort and no audible wheezes Auscultation: Bilateral: Clear to Auscultation Cardio Palpation: normal PMI Rate: regular rate Rhythm: regular rhythm Neuro General: patient alert and CN's II-XI intact bilaterally Psych Appearance: grossly normal Mental Status: mental status grossly normal Coding Level of Care Code Off vis,est,level 3 Diagnoses Acute upper respiratory infection J06.9 Assessment and Plan Assessment and Plan (1) Acute upper respiratory infection: Status: Acute Medications: New azithromycin take 500 mg today (day 1), then 250 mg for 4 days (days 2-5) PO 6 tabs 0RF ipratropium bromide administer into each nostril 2 sprays intranasal BID-TID PRN 30 mL 0RF postnasal drainage fexofenadine (Delores Allergy) 180 mg PO Q24H 30 tabs 0RF Plan Azithromycin, Atrovent and Delores as prescribed today. Encouraged to get plenty of rest, drink lots of clear liquids, and use Tylenol or Ibuprofen (unless contraindicated) for fever and comfort. Patient also educated on other symptomatic management techniques. To be seen in 7-10 days if no improvement; sooner if worsening of symptoms. Patient advised of potential red flags and when appropriate to report to the ED. Patient verbalized understanding and agreement with all the above. Clinical Quality Measures Falls Risk Screening/Assistive Devices Have you fallen in the past year?: No 03/25/25 0743 Date Thomas Hart Signature: Date (if applicable) CC: Normal [facility] Androst SerPl-mCncon 01-24-2 025 Androstenedione [Mass/Vol] 1.2 ng/mL Normal <1.6 [facility] Comment on above: Order Comment: Speci men Type: BLOOD SPECIMEN Ordering Facility: [facility] Address: [address] [place] [address] Result Comment: The reference interval in post-menopausal women is <1.2 ng/mL. Performed By: #### 1 854-9 #### [facility] CLIA [id number] [address] [place] [address] [place] CBC W Auto Differential pane l (Bld)on 01-24-2025 Basophils (Bld) [#/Vol] 0.04 10*3/uL Normal <0.11 [facility] Comment on above: Order Comment: Speci men Type: BLOOD SPECIMEN Ordering Facility: [facility] Address: [address] [place] [address] Performed By: #### 5 7021-8 #### [facility] CLIA [id number] [address] [place] [address] [place] Basophils/100 WBC (Bld) 0.5 % Normal [facility] Comment on above: Order Comment: Speci men Type: BLOOD SPECIMEN Ordering Facility: [facility] Address: [address] [place] [address] Performed By: #### 5 7021-8 #### [facility] CLIA [id number] [address] [place] [address] [place] Differential cell count method Nom (Bld) Auto Normal [facility] Comment on above: Order Comment: Speci men Type: BLOOD SPECIMEN Ordering Facility: [facility] Address: [address] [place] [address] Performed By: #### 5 7021-8 #### [facility] CLIA [id number] [address] [place] [address] [place] Eosinophils (Bld) [#/Vol] 0.16 10*3/uL Normal <0.46 [facility] Comment on above: Order Comment: Speci men Type: BLOOD SPECIMEN Ordering Facility: [facility] Address: [address] [place] [address] Performed By: #### 5 7021-8 #### [facility] CLIA [id number] [address] [place] [address] [place] Eosinophils/100 WBC (Bld) 2.2 % Normal [facility] Comment on above: Order Comment: Speci men Type: BLOOD SPECIMEN Ordering Facility: [facility] Address: [address] [place] [address] Performed By: #### 5 7021-8 #### [facility] CLIA [id number] [address] [place] [address] [place] Erythrocyte distribution width (RBC) [Ratio] 13.9 % Normal 11.5-15.0 [facility] Comment on above: Order Comment: Speci men Type: BLOOD SPECIMEN Ordering Facility: [facility] Address: [address] [place] [address] Performed By: #### 5 7021-8 #### [facility] CLIA [id number] [address] [place] [address] [place] Hematocrit (Bld) [Volume fraction] 40.2 % Normal 36.0-46.0 [facility] Comment on above: Order Comment: Speci men Type: BLOOD SPECIMEN Ordering Facility: [facility] Address: [address] [place] [address] Performed By: #### 5 7021-8 #### [facility] CLIA [id number] [address] [place] [address] [place] Hemoglobin (Bld) [Mass/Vol] 13.7 g/dL Normal 11.5-15.5 [facility] Comment on above: Order Comment: Speci men Type: BLOOD SPECIMEN Ordering Facility: [facility] Address: [address] [place] [address] Performed By: #### 5 7021-8 #### [facility] CLIA [id number] [address] [place] [address] [place] Immature granulocytes (Bld) [#/Vol] 10*3/uL Normal <0.10 [facility] Comment on above: Order Comment: Speci men Type: BLOOD SPECIMEN Ordering Facility: [facility] Address: [address] [place] [address] Performed By: #### 5 7021-8 #### [facility] CLIA [id number] [address] [place] [address] [place] Immature granulocytes/100 WBC (Bld) 0.3 % Normal [facility] Comment on above: Order Comment: Speci men Type: BLOOD SPECIMEN Ordering Facility: [facility] Address: [address] [place] [address] Performed By: #### 5 7021-8 #### [facility] CLIA [id number] [address] [place] [address] [place] Lymphocytes (Bld) [#/Vol] 1.82 10*3/uL Normal 1.00-4.00 [facility] Comment on above: Order Comment: Speci men Type: BLOOD SPECIMEN Ordering Facility: [facility] Address: [address] [place] [address] Performed By: #### 5 7021-8 #### [facility] CLIA [id number] [address] [place] [address] [place] Lymphocytes/100 WBC (Bld) 25.0 % Normal [facility] Comment on above: Order Comment: Speci men Type: BLOOD SPECIMEN Ordering Facility: [facility] Address: [address] [place] [address] Performed By: #### 5 7021-8 #### [facility] CLIA [id number] [address] [place] [address] [place] MCH (RBC) [Entitic mass] 31.1 pg Normal 26.0-34.0 [facility] Comment on above: Order Comment: Speci men Type: BLOOD SPECIMEN Ordering Facility: [facility] Address: [address] [place] [address] Performed By: #### 5 7021-8 #### [facility] CLIA [id number] [address] [place] [address] [place] MCHC (RBC) [Mass/Vol] 34.1 g/dL Normal 30.5-36.0 [facility] Comment on above: Order Comment: Speci men Type: BLOOD SPECIMEN Ordering Facility: [facility] Address: [address] [place] [address] Performed By: #### 5 7021-8 #### [facility] CLIA [id number] [address] [place] [address] [place] MCV (RBC) [Entitic vol] 91.2 fL Normal 80.0-100.0 [facility] Comment on above: Order Comment: Speci men Type: BLOOD SPECIMEN Ordering Facility: [facility] Address: [address] [place] [address] Performed By: #### 5 7021-8 #### [facility] CLIA [id number] [address] [place] [address] [place] Monocytes (Bld) [#/Vol] 0.47 10*3/uL Normal <0.87 [facility] Comment on above: Order Comment: Speci men Type: BLOOD SPECIMEN Ordering Facility: [facility] Address: [address] [place] [address] Performed By: #### 5 7021-8 #### [facility] CLIA [id number] [address] [place] [address] [place] Monocytes/100 WBC (Bld) 6.5 % Normal [facility] Comment on above: Order Comment: Speci men Type: BLOOD SPECIMEN Ordering Facility: [facility] Address: [address] [place] [address] Performed By: #### 5 7021-8 #### [facility] CLIA [id number] [address] [place] [address] [place] Neutrophils (Bld) [#/Vol] 4.77 10*3/uL Normal 1.45-7.50 [facility] Comment on above: Order Comment: Speci men Type: BLOOD SPECIMEN Ordering Facility: [facility] Address: [address] [place] [address] Performed By: #### 5 7021-8 #### [facility] CLIA [id number] [address] [place] [address] [place] Neutrophils/100 WBC (Bld) 65.5 % Normal [facility] Comment on above: Order Comment: Speci men Type: BLOOD SPECIMEN Ordering Facility: [facility] Address: [address] [place] [address] Performed By: #### 5 7021-8 #### [facility] CLIA [id number] [address] [place] [address] [place] Nucleated RBC (Bld) [#/Vol] 10*3/uL Normal <0.01 [facility] Comment on above: Order Comment: Speci men Type: BLOOD SPECIMEN Ordering Facility: [facility] Address: [address] [place] [address] Performed By: #### 5 7021-8 #### [facility] CLIA [id number] [address] [place] [address] [place] Nucleated RBC/100 WBC (Bld) [Ratio] 0.0 /100 WBC Normal [facility] Comment on above: Order Comment: Speci men Type: BLOOD SPECIMEN Ordering Facility: [facility] Address: [address] [place] [address] Performed By: #### 5 7021-8 #### [facility] CLIA [id number] [address] [place] [address] [place] Platelet mean volume (Bld) [Entitic vol] 9.5 fL Normal 9.0-12.7 [facility] Comment on above: Order Comment: Speci men Type: BLOOD SPECIMEN Ordering Facility: [facility] Address: [address] [place] [address] Performed By: #### 5 7021-8 #### [facility] CLIA [id number] [address] [place] [address] [place] Platelets (Bld) [#/Vol] 331 10*3/uL Normal 150-400 [facility] Comment on above: Order Comment: Speci men Type: BLOOD SPECIMEN Ordering Facility: [facility] Address: [address] [place] [address] Performed By: #### 5 7021-8 #### [facility] CLIA [id number] [address] [place] [address] [place] RBC (Bld) [#/Vol] 4.41 10*6/uL Normal 3.90-5.20 [facility] Comment on above: Order Comment: Speci men Type: BLOOD SPECIMEN Ordering Facility: [facility] Address: [address] [place] [address] Performed By: #### 5 7021-8 #### [facility] CLIA [id number] [address] [place] [address] [place] WBC (Bld) [#/Vol] 7.28 10*3/uL Normal 3.70-11.00 [facility] Comment on above: Order Comment: Speci men Type: BLOOD SPECIMEN Ordering Facility: [facility] Address: [address] [place] [address] Performed By: #### 5 7021-8 #### [facility] CLIA [id number] [address] [place] [address] [place] CNOVon 01-24-2025 CNOV Office Visit (FAMPWS ) ----- JILL SORIA ([id number]) 2 F Date Time Provider Department 01/24/25 9:00 AM DARLING BRANHAM During your visit today, we recorded the following information about you: Pulse Respiration Blood pressure Last Period 88/minute 16/minute 116/78 12/28/24 Darling Branham APRN.[employer]ATING SUPERVISOR 01/24/2025 10:45 AM Signed This is a 24 year old female who presents today with: Patient presents with: Discussion: Questions about wellbutrin; recently decreased dosage HISTORY OF PRESENT ILLNESS: Jill Soria is a 24 year old female. Patient presents with: Discussion: Questions about wellbutrin; recently decreased dosage Pt presents today with questions re: wellbutrin. Refers that she has been on the wellbutrin for 3 1/2 years. She has noticed progressively worsening problems with dark/course hair growth. Refer first noticed maybe a year after first starting it. Feels like it decreases libido. Also has noticed some issues with lubrication. Also noticed some hair growth on the breasts. Refers that she has to shave her face daily. Periods have been regular for the last few years. Not on any control. Would like to discuss options, as wellbutrin has been very helpful w/ mood. PAST MEDICAL HISTORY: PAST MEDICAL HISTORY Diagnosis Date Anxiety and depression 11/16/2019 Bipolar affective disorder, currently manic, mild ([facility]) 11/16/2019 History of alcohol abuse 09/14/2021 Sober since 07/20/2021, attending [facility] and [facility] History of methamphetamine abuse ([facility]) 09/14/2021 Sober since 06/07/2021 Doing 180 and NA Irregular menses 01/22/2018 Irritable bowel syndrome 03/29/2014 Major depressive disorder 10/19/2014 See notes from counseling Center Migraine with aura and without status migrainosus, not intractable 04/10/2017 PAST SURGICAL HISTORY Procedure Laterality Date D+C NONE ALLERGIES Amoxicillin MEDICATIONS Current Outpatient Medications Medication Sig FLUoxetine (PROZAC) 20 mg capsule Take 1 capsule by mouth once daily. buPROPion SR (WELLBUTRIN SR) 100 mg 12 hr tablet Take 1 tablet by mouth once daily. No current facility-administered medications for this visit. FAMILY HISTORY Problem Relation Age of Onset Heart Maternal Grandmother Hypertension Maternal Grandmother Ischemic Heart Disease Maternal Grandmother Breast Cancer Paternal Grandmother Breast Cancer Paternal Aunt Social History Tobacco Use Smoking status: Former Current packs/day: 0.00 Types: Cigarettes Quit date: 05/19/2022 Years since quittin.6 Smokeless tobacco: Never Tobacco comments: 12/04-12/02 ppd Vaping Use Vaping status: Never Used Substance Use Topics Alcohol use: No Drug use: Not Currently EXAM: BP 116/78 Pulse 88 Resp 16 LMP 12/28/2024 SpO2 98% PHYSICAL EXAM: General Appearance: Well appearing, alert, in no acute distress, well-hydrated, well nourished.. Skin: Skin color, texture, turgor normal, no suspicious rashes or lesions. Head: Normocephalic, no masses, lesions, tenderness or abnormalities. Eyes: Anicteric sclera. Extraocular movements are intact. . Neck: Supple, no adenopathy; thyroid symmetric, normal size, no bruits. Lungs: Lungs clear to auscultation. No wheezing, rhonchi, rales.. Heart: RRR without murmur, gallop, or rubs. No ectopy. Abdomen: Abdomen soft, non-tender. Bowel sounds normal. No masses, organomegaly. Neurologic: Gait normal. ASSESSMENT/PLAN: 1. Hirsutism - ICD9: 704.1, ICD10: L68.0 (primary diagnosis) Will go ahead and check some labs. Discussed with patient that there is no known really is not a common complaint with Wellbutrin. She would like to get some lab work drawn. Will go ahead and check labs. She is very happy with the effect of the Wellbutrin on her mental health. Did discuss possibly adding spironolactone to her treatment regimen if needed. - THYROID STIMULATING HORMONE - T4 FREE/FREE THYROXINE - TESTOSTERONE, TOTAL BY IMMUNOASSAY (ADULT MALES, OR INDIVIDUALS ON TESTOSTERONE THERAPY) - HYDROXYPROGESTERONE-17 - DHEA-S BLD - ANDROSTENEDIONE BLD - SEX-HORMONE BINDING - COMPLETE BLOOD COUNT AND DIFFERENTIAL - COMPREHENSIVE METABOLIC PANEL 2. Anxiety and depression - ICD9: 300.00, 311, ICD10: F41.9, F32.A Controlled on current medication regimen. Discussed treatment plan and patient voices understanding. Patient's questions answered appropriately. Medications and potential side effects were discussed and patient voices understanding. Return to the office as scheduled or as needed for worsening/no improvement. Darling Branham APRN.Darling Wright APRN.CNP 01/24/2025 9:32 AM Signed Get labs. More to come. Allergies As of Date: 01/24/2025 Noted Allergy Reaction AMOXICILLIN 01/02/2016 2 - Rash Date Reviewed: 01/24/2025 Reviewed by: Fran Gutierrez LPN - Fully Assessed Reason for V (more content not included)... Normal [facility] Comprehensive metabolic 2000 panelon 01-24-2025 Albumin [Mass/Vol] 4.7 g/dL Normal 3.9-4.9 [facility] Comment on above: Order Comment: Speci men Type: BLOOD SPECIMEN Ordering Facility: [facility] Address: [address] [place] [address] Performed By: #### H PROG #### [facility] CLIA [id number] [address] [place] [address] ALP [Catalytic activity/Vol] 44 U/L Normal 34-123 [facility] Comment on above: Order Comment: Speci men Type: BLOOD SPECIMEN Ordering Facility: [facility] Address: [address] [place] [address] Performed By: #### H PROG #### [facility] CLIA [id number] [address] [place] [address] ALT [Catalytic activity/Vol] 15 U/L Normal 7-38 [facility] Comment on above: Order Comment: Speci men Type: BLOOD SPECIMEN Ordering Facility: [facility] Address: [address] [place] [address] Performed By: #### H PROG #### [facility] CLIA [id number] [address] [place] [address] Anion gap [Moles/Vol] 11 mmol/L Normal 8-15 [facility] Comment on above: Order Comment: Speci men Type: BLOOD SPECIMEN Ordering Facility: [facility] Address: [address] [place] [address] Performed By: #### H PROG #### [facility] CLIA [id number] [address] [place] [address] AST [Catalytic activity/Vol] 17 U/L Normal 13-35 [facility] Comment on above: Order Comment: Speci men Type: BLOOD SPECIMEN Ordering Facility: [facility] Address: [address] [place] [address] Performed By: #### H PROG #### [facility] CLIA [id number] [address] [place] [address] Bilirubin [Mass/Vol] 0.2 mg/dL Normal 0.2-1.3 [facility] Comment on above: Order Comment: Speci men Type: BLOOD SPECIMEN Ordering Facility: [facility] Address: [address] [place] [address] Performed By: #### H PROG #### [facility] CLIA [id number] [address] [place] [address] Calcium [Mass/Vol] 9.9 mg/dL Normal 8.5-10.2 [facility] Comment on above: Order Comment: Speci men Type: BLOOD SPECIMEN Ordering Facility: [facility] Address: [address] [place] [address] Performed By: #### H PROG #### [facility] CLIA [id number] [address] [place] [address] Chloride [Moles/Vol] 103 mmol/L Normal 98-107 [facility] Comment on above: Order Comment: Speci men Type: BLOOD SPECIMEN Ordering Facility: [facility] Address: [address] [place] [address] Performed By: #### H PROG #### [facility] CLIA [id number] [address] [place] [address] CO2 [Moles/Vol] 24 mmol/L Normal 22-30 [facility] Comment on above: Order Comment: Speci men Type: BLOOD SPECIMEN Ordering Facility: [facility] Address: [address] [place] [address] Performed By: #### H PROG #### [facility] CLIA [id number] [address] [place] [address] Creatinine [Mass/Vol] 0.68 mg/dL Normal 0.58-0.96 [facility] Comment on above: Order Comment: Soraya morgan Type: BLOOD SPECIMEN Ordering Facility: [facility] Address: [address] [place] [address] Performed By: #### H PROG #### [facility] IA [id number] [address] [place] [address] Creatinine and Glomerular filtration rate.predicted panel (S/P/Bld) 126 mL/min/1.73m??? Normal >=60 [facility] Comment on above: Order Comment: Soraya morgan Type: BLOOD SPECIMEN Ordering Facility: [facility] Address: [address] [place] [address] Result Comment: Janis mated Glomerular Filtration Rate (eGFR) is calculated using the 2020 CKD-EPI creatinine equation. This equation utilizes serum creatinine, sex, and age as parameters. The creatinine assay has traceable calibration to isotope dilution-mass spectrometry. Refer to KDIGO guidelines for clinical interpretation. In patients with unstable renal function, e.g. those with acute kidney injury, the eGFR may not accurately reflect actual GFR. Performed By: #### H PROG #### [facility] IA [id number] [address] [place] [address] Glucose [Mass/Vol] 89 mg/dL Normal 74-99 [facility] Comment on above: Order Comment: Soraya morgan Type: BLOOD SPECIMEN Ordering Facility: [facility] Address: [address] [place] [address] Result Comment: The [place] Diabetes Association (ADA) provides guidance for cutoff values for fasting glucose and random glucose. The ADA defines fasting as no caloric intake for at least 8 hours. Fasting plasma glucose results between 100 to 125 mg/dL indicate increased risk for diabetes (prediabetes). Fasting plasma glucose results greater than or equal to 126 mg/dL meet the criteria for diagnosis of diabetes. In the absence of unequivocal hyperglycemia, results should be confirmed by repeat testing. In a patient with classic symptoms of hyperglycemia or hyperglycemic crisis, random plasma glucose results greater than or equal to 200 mg/dL meet the criteria for diagnosis of diabetes. Reference: Standards of Medical Care in Diabetes 2016, [place] [employer] Association. Diabetes Care. 2016.39(Suppl 1). Performed By: #### H PROG #### [facility] CLIA [id number] [address] [place] [address] Potassium [Moles/Vol] 4.1 mmol/L Normal 3.7-5.1 [facility] Comment on above: Order Comment: Speci men Type: BLOOD SPECIMEN Ordering Facility: [facility] Address: [address] [place] [address] Performed By: #### H PROG #### [facility] CLIA [id number] [address] [place] [address] Protein [Mass/Vol] 7.5 g/dL Normal 6.3-8.0 [facility] Comment on above: Order Comment: Speci men Type: BLOOD SPECIMEN Ordering Facility: [facility] Address: [address] [place] [address] Performed By: #### H PROG #### [facility] IA [id number] [address] [place] [address] Sodium [Moles/Vol] 138 mmol/L Normal 136-144 [facility] Comment on above: Order Comment: Speci men Type: BLOOD SPECIMEN Ordering Facility: [facility] Address: [address] [place] [address] Performed By: #### H PROG #### [facility] CLIA [id number] [address] [place] [address] Urea nitrogen [Mass/Vol] 12 mg/dL Normal 7-21 [facility] Comment on above: Order Comment: Speci men Type: BLOOD SPECIMEN Ordering Facility: [facility] Address: [address] [place] [address] Performed By: #### H PROG #### [facility] IA [id number] [address] [place] [address] DHEA-S BLDon 01-24-2025 DHEA-S [Mass/Vol] 384.8 ug/dL Normal 148.0-407.0 [facility] Comment on above: Order Comment: Speci men Type: BLOOD SPECIMEN Ordering Facility: [facility] Address: [address] [place] [address] Result Comment: Refe rence ranges are age and gender specific. For additional information, reference range tables can be found in the laboratory test directory. The normal values are based on the following source: Dehydroepiandrosterone sulfate (DHEA S) [package insert V 17.0 Irish]. [facility], [place], [place]: July 2013. Performed By: #### H PROG #### [facility] CLIA [id number] [address] [place] [address] HYDROXYPROGESTERONE-17on 17-HYDROXYPROGESTERO NE QUANTITATIVE BY HPLC-MS/MS, SERUM OR PLASMA 29.44 ng/dL Normal <=206.00 [facility] Comment on above: Order Comment: Speci men Type: BLOOD SPECIMEN Ordering Facility: [facility] Address: [address] [place] [address] Result Comment: INTE RPRETIVE INFORMATION for 17-Hydroxyprogesterone in females: Follicular 15 to 70 ng/dL Luteal 35 to 290 ng/dL REFERENCE INTERVAL: 17-Hydroxyprogesterone Qnt, HPLC-MS/MS Access complete set of age- and/or gender-specific reference intervals for this test in the [facility] Test Directory ([facility]). This test was developed and its performance characteristics determined by [facility]. It has not been cleared or approved by the [place] Food and Drug Administration. This test was performed in a CLIA certified laboratory and is intended for clinical purposes. Performed By: [facility] [address] [place] [address] [employer] Flatbed Driver: Maynor Barragan MD, PhD CLIA Number: [id number] Performed By: #### H PROG #### [facility] CLIA [id number] [address] [place] [address] SHBG SerPl-sCncon 01-24-2025 Sex hormone binding globulin [Moles/Vol] 71 nmol/L Normal 25-122 [facility] Comment on above: Order Comment: Speci men Type: BLOOD SPECIMEN Ordering Facility: [facility] Address: [address] [place] [address] Performed By: #### H PROG #### [facility] IA [id number] [address] [place] [address] T4 Free SerPl-mCncon 025 Free T4 [Mass/Vol] 1.4 ng/dL Normal 0.9-1.7 [facility] Comment on above: Order Comment: Speci men Type: BLOOD SPECIMEN Ordering Facility: [facility] Address: [address] [place] [address] Performed By: #### H PROG #### [facility] [id number] [address] [place] [address] TSH SerPl-aCncon 01-24-2025 TSH Qn 0.694 m[IU]/L Normal 0.270-4.200 [facility] Comment on above: Order Comment: Speci men Type: BLOOD SPECIMEN Ordering Facility: [facility] Address: [address] [place] [address] Result Comment: If t he patient is , TSH reference range varies by gestational period: First Trimester (weeks 9-12): 0.180-2.990 mIU/L Second Trimester: 0.110-3.980 mIU/L Third Trimester: 0.480-4.710 mIU/L Roscoe Tavera et al. A Practical Approach for the Verifications and Determination of Site- and Trimester-Specific Reference Intervals for Thyroid Function tests in . Thyroid, 2019:29:3:412-420. Scottie Savage et al. 2017 Guidelines of the [place] [employer] for the Diagnosis and Management of Thyroid Disease during and the . Thyroid, 2017:27:3:315-389. Performed By: #### H PROG #### [facility] [employer] [id number] [address] [place] [address] Testost SerPl-mCncon 025 Testosterone [Mass/Vol] 43 ng/dL High <40 [facility] Comment on above: Order Comment: Speci men Type: BLOOD SPECIMEN Ordering Facility: [facility] Address: [address] [place] [address] Performed By: #### H PROG #### [facility] [employer] CLIA [id number] [address] [place] [address] Urine Cultureon 10-10-2024 [facility] Escherichia coli [place] Count 50,000-80,000 Escherichia coli: REACTION Ampicillin Islt MOHSEN >=32 Ampicillin+Sulbac Islt MOHSEN 4 S ceFAZolin Islt MOHSEN <=4 S Cefepime Islt MOHSEN <=0.12 S cefTRIAXone Islt MOHSEN <=0.25 S Ciprofloxacin Islt MOHSEN <=0.25 S B-Lactamase Extended Susc Islt NEG Gentamicin Islt MOHSEN <=1 S Imipenem Islt MOHSEN <=0.25 S levoFLOXacin Islt MOHSEN <=0.12 S Nitrofurantoin Islt MOHSEN <=16 S Pip+Tazo Islt MOHSEN <=4 S Tobramycin Islt MOHSEN <=1 S TMP SMX Islt MOHSEN <=20 S Normal [facility] Comment on above: Performed By: #### L 400.0001, M100.2200 #### [facility] [address] [place], [address] Urgent Care Visit Reporton 1 12-08-2023 Urgent Care Visit Report [facility] [address], [address] [place] [address] OFFICE VISIT Date of Service: 10/08/24 MR#: [id number] Acct: [id number] Name: JILL SORIA Rep #: [id number] : 2000 Provider: VANNA Sim Age/Sex: 24/F Location: [facility] Status: Signed Intake Vital Signs 07/08/24 11:05 10/08/24 09:18 Height 5 ft 4 in 5 ft 3 in Weight: 138 lb BMI 24.4 BP 108/62 Blood Pressure Location Lt brachial Position Sitting Respiration 12 Pulse 100 Pulse Source Monitor Temp 98.6 F Temp Source Oral Pulse Oximetry (%) 97 Oxygen Delivery Method room air Intake Visit Reasons: Urinary tract infection Allergies amoxicillin Allergy (Verified 10/08/24 09:19) Hives [facility] Medical History Bipolar disorder Alcohol abuse Anxiety Depression Substance abuse Migraines Family History Father Heart disease Aunt Cancer Other Thyroid disorder Social History Smoking Status: Current every day smoker tobacco type: cigarettes alcohol intake: current alcohol intake frequency: 0-2 drinks per day Alcohol type: beer substance use type: methamphetamine HPI HPI Details: JILL SORIA, is a 24 F who presents to the office today for complaint of increased urinary urgency/frequency and dysuria. Patient states this started yesterday. No fever, chills, sweats. No nausea, vomiting, diarrhea. No loss of taste or smell. No other associated symptoms or alleviating/aggravating factors. ROS Const Constitutional: No other (6 system ROS completed with pertinent findings in HPI otherwise normal.) Exam Const General: cooperative and healthy appearing Resp Effort Inspection: normal respiratory effort Auscultation: Bilateral: Clear to Auscultation Cardio Rate: regular rate Rhythm: regular rhythm GI Auscultation: normal bowel sounds General: No CVA tenderness Psych Appearance: grossly normal Mental Status: mental status grossly normal Results POC Urinalysis Dip (Clinic) Office Urine Color STRAW Last Edit by Kathie Vazquez on 10/08/24 09:21 Office Urine Clarity Turbid Last Edit by Kathie Vazquez on 10/08/24 09:21 Office Urine Glucose Negative Last Edit by Kathie Vazquez on 10/08/24 09:21 Office Urine Ketones Negative Last Edit by Kathie Vazquez on 10/08/24 09:21 Off Ur Spec Pitcher 1.010 Last Edit by Kathie Vazquez on 10/08/24 09:21 Office Urine pH 6.0 Last Edit by Kathie Vazquez on 10/08/24 09:21 Office Urine Bilirubin Negative Last Edit by Kathie Vazquez on 10/08/24 09:21 Office Urine Urobilinogen Negative Last Edit by Kathie Vazquez on 10/08/24 09:21 Office Urine Blood Moderate Last Edit by Kathie Vazquez on 10/08/24 09:21 Office Urine Blood Hemolyzed Non-Hemolyzed Last Edit by Kathie Vazquez on 10/08/24 09:21 Office Urine Protein Negative Last Edit by Kathie Vazquez on 10/08/24 09:21 Office Urine Nitrate Negative Last Edit by Kathie Vazquez on 10/08/24 09:21 Off Ur Leukocytes Positive Last Edit by Kathie Vazquez on 10/08/24 09:21 Coding Level of Care Code Off vis,new,level 3 Diagnoses Urinary tract infection N39.0 Assessment and Plan Assessment and Plan (1) Urinary tract infection: Plan: Macrobid and Pyridium as prescribed today. Encouraged to get plenty of rest, drink lots of clear liquids, and use Tylenol or Ibuprofen (unless contraindicated) for fever and comfort. Patient also educated on other symptomatic management techniques. To be seen in 7-10 days if no improvement; sooner if worsening of symptoms. Patient advised of potential red flags and when appropriate to report to the ED. Patient verbalized understanding and agreement with all the above. Orders: Orders Culture, Urine Today R30.0 - Dysuria POC Urinalysis Dip (Clinic) Today R30.0 - Dysuria Urinalysis, Complete Today R30.0 - Dysuria Medications: New nitrofurantoin monohyd/m-cryst 100 mg administer with a meal/food; swallow whole; do not open, crush, dissolve , or chew 1 cap PO Q12H 7 days 14 caps 0RF phenazopyridine (Pyridium) 200 mg PO TID PRN 7 tabs 0RF pain 10/08/2427 Date Thomas Hart Signature: Date (if applicable) CC: Normal [facility] Urinalysis, Completeon 10-08 BACTERIA 2+ /hpf Normal None Seen [facility] Comment on above: Order Comment: CLEAN CATCH Performed By: #### L 400.0001, M100.2200 #### [facility] [address] [place], [address] EPI,SQUAMOUS 0-5 SEEN Normal 5-10 [facility] Comment on above: Order Comment: CLEAN CATCH Performed By: #### L 400.0001, M100.2200 #### [facility] [address] [place], [address] RBC 0-5 SEEN Normal 0-5 [facility] Comment on above: Order Comment: CLEAN CATCH Performed By: #### L 400.0001, M100.2200 #### [facility] [address] [place], [address] WBC 10-25 SEEN Normal 0-5 [facility] Comment on above: Order Comment: CLEAN CATCH Performed By: #### L 400.0001, M100.2200 #### [facility] [address] [place], [address] Mucus Ql (Urine sed) 0 SEEN Normal [facility] Comment on above: Order Comment: CLEAN CATCH Performed By: #### L 400.0001, M100.2200 #### [facility] [address] [place], [address] Abdomen/Pelvis W IV Cont ONL Yon 07-08-2024 Abdomen/Pelvis W IV Cont ONLY [facility] Imaging Services [address] [place] [address] Abdomen/Pelvis W IV Cont ONLY MR#: [id number] Acct: [id number] Name: JILL SORIA Rep #: [id number] : 2000 F 24 From: Pawan Figueredo MD PCP: Dr. Delfino Vallejo MD Status: REG ER Study: Abdomen/Pelvis W IV Cont ONLY Date of Exam: Exam# [id number] Ordering Dr: Pawan Chacko MD [id number] EXAM: CT ABDOMEN AND PELVIS WITH INTRAVENOUS CONTRAST CLINICAL INDICATION: Abdominal pain. TECHNIQUE: Helically acquired images were obtained of the abdomen and pelvis with intravenous contrast. This CT exam was performed using one or more of the following dose reduction techniques: automated exposure control, adjustment of the mA and/or kV according to patient size, and/or use of iterative reconstruction technique. CONTRAST: IV 100mL Isovue-370 RADIATION DOSE: CTDIvol = 11.4 mGy, DLP = 447.16 mGy-cm COMPARISON: No relevant prior studies available. FINDINGS: LOWER THORAX: Unremarkable. Lung bases are clear. No cardiomegaly. No significant pericardial effusion. ABDOMEN: LIVER: Unremarkable. Homogeneous. No focal mass. GALLBLADDER AND BILE DUCTS: Unremarkable. No calcified gallstones. No gallbladder distention or wall edema. No intra- or extrahepatic biliary ductal dilation. PANCREAS: Unremarkable. No focal cystic or solid mass. SPLEEN: Unremarkable. Normal size without focal cystic or solid mass. ADRENALS: Unremarkable. No nodules. KIDNEYS AND URETERS: Unremarkable. Normal renal size and position. No hydronephrosis. STOMACH AND BOWEL: Unremarkable. No stomach or bowel distention. No focal inflammatory change. PELVIS: APPENDIX: Normal appendix. BLADDER: Unremarkable. REPRODUCTIVE: No suspicious abnormality of the anteverted uterus. No adnexal mass lesions. There are small follicular cysts in both ovaries. ABDOMEN and PELVIS: INTRAPERITONEAL SPACE: Unremarkable. No ascites or other fluid collection. No free air. BONES/JOINTS: Unremarkable. No suspicious lytic or blastic abnormality. SOFT TISSUES: Unremarkable. No discrete abdominal or pelvic wall hernia. VASCULATURE: Unremarkable. Abdominal aorta is non-dilated. LYMPH NODES: Unremarkable. No enlarged lymph nodes. CT/Abdomen/Pelvis W IV Cont ONLY IMPRESSION: No acute abnormality in the abdomen and pelvis. Electronically Signed: Pawan Figueredo MD at 12:49 EDT Reading Location ID and State: [address] [place] [address] , Service support , CC: Dr. Pawan Chacko MD; Dr. Delfino Vallejo MD Engineering [employer] Scientific Programmer: Signed Normal [facility] CBC W/Diff, Automatedon 08-0 Absolute Lymph 2.82 X10 3/uL Normal 0.83-4.51 [facility] Comment on above: Performed By: #### L 700.9260, L500.4050, L501.2450, L100.0100 #### [facility] [place], [address] Absolute Neut 2.0 X10 3/uL Normal 2.0-7.7 [facility] Comment on above: Performed By: #### L 700.6800, L500.4050, L501.2450, L100.0100 #### [facility] [address] [place], [address] Basophils/100 WBC (Bld) 0.9 % Normal 0-1 [facility] Comment on above: Performed By: #### L 700.6800, L500.4050, L501.2450, L100.0100 #### [facility] [address] [place], [address] Eosinophils/100 WBC (Bld) 1.5 % Normal 0-5 [facility] Comment on above: Performed By: #### L 700.6800, L500.4050, L501.2450, L100.0100 #### [facility] [address] [place], [address] Erythrocyte distribution width (RBC) [Ratio] 13.2 % Normal 11.6-14.6 [facility] Comment on above: Performed By: #### L 700.6800, L500.4050, L501.2450, L100.0100 #### [facility] [address] [place], [address] Hematocrit (Bld) [Volume fraction] 43.4 % Normal 37-47 [facility] Comment on above: Performed By: #### L 700.6800, L500.4050, L501.2450, L100.0100 #### [facility] [address] [place], [address] Hemoglobin (Bld) [Mass/Vol] 14.6 g/dL Normal 12.0-15.0 [facility] Comment on above: Performed By: #### L 700.6800, L500.4050, L501.2450, L100.0100 #### [facility] [address] [place], [address] IG% 0.200 Normal 0.0-0.9 [facility] Comment on above: Result Comment: IG% - Immature Granulocytes (promyelocytes, myelocytes and metamyelocytes) > 1% indicates that a LEFT SHIFT is Present. Performed By: #### L 700.6800, L500.4050, L501.2450, L100.0100 #### [facility] [address] [place], [address] Lymphocytes/100 WBC (Bld) 53.1 % High 19-41 [facility] Comment on above: Performed By: #### L 700.6800, L500.4050, L501.2450, L100.0100 #### [facility] [address] [place], [address] MCH (RBC) [Entitic mass] 30.7 pg Normal 27.0-32.0 [facility] Comment on above: Performed By: #### L 700.6800, L500.4050, L501.2450, L100.0100 #### [facility] [address] [place], [address] MCHC (RBC) [Mass/Vol] 33.6 g/dL Normal 32-36 [facility] Comment on above: Performed By: #### L 700.6800, L500.4050, L501.2450, L100.0100 #### [facility] [address] [place], [address] MCV (RBC) [Entitic vol] 91.2 fL Normal 81-99 [facility] Comment on above: Performed By: #### L 700.6800, L500.4050, L501.2450, L100.0100 #### [facility] [address] [place], [address] Monocytes/100 WBC (Bld) 6.8 % Normal 0-10 [facility] Comment on above: Performed By: #### L 700.6800, L500.4050, L501.2450, L100.0100 #### [facility] [address] [place], [address] Neutrophils/100 WBC (Bld) 37.5 % Low 47-70 [facility] Comment on above: Performed By: #### L 700.6800, L500.4050, L501.2450, L100.0100 #### [facility] [address] [place], [address] Nucleated RBC (Bld) [#/Vol] 0 10*3/uL Normal 0-5 [facility] Comment on above: Performed By: #### L 700.6800, L500.4050, L501.2450, L100.0100 #### [facility] [address] [place], [address] Platelet mean volume (Bld) [Entitic vol] 9.1 fL Normal 6.2-12.0 [facility] Comment on above: Performed By: #### L 700.6800, L500.4050, L501.2450, L100.0100 #### [facility] [address] [place], [address] Platelets (Bld) [#/Vol] 328 10*3/uL Normal 150-450 [facility] Comment on above: Performed By: #### L 700.6800, L500.4050, L501.2450, L100.0100 #### [facility] [address] [place], [address] RBC (Bld) [#/Vol] 4.76 10*6/uL Normal 4.2-5.4 [facility] Comment on above: Performed By: #### L 700.6800, L500.4050, L501.2450, L100.0100 #### [facility] [address] [place], [id number] RDW SD 44.9 fl High 35.1-43.9 [facility] Comment on above: Performed By: #### L 700.6800, L500.4050, L501.2450, L100.0100 #### [facility] [address] [place], [id number] WBC (Bld) [#/Vol] 5.3 10*3/uL Normal 4.4-11.0 [facility] Comment on above: Performed By: #### L 700.6800, L500.4050, L501.2450, L100.0100 #### [facility] [address] [place], [address] Comprehensive Metabolic [facility] 07-08-2024 Albumin [Mass/Vol] 4.1 g/dL Normal 3.2-5.0 [facility] Comment on above: Performed By: #### L 700.6800, L500.4050, L501.2450, L100.0100 #### [facility] [address] [place], [address] Albumin/Globulin [Mass ratio] 1.1 {ratio} Normal 0.9-2.4 [facility] Comment on above: Performed By: #### L 700.6800, L500.4050, L501.2450, L100.0100 #### [facility] [address] [place], [id number] ALK P 39 U/L Low 45-117 [facility] Comment on above: Performed By: #### L 700.6800, L500.4050, L501.2450, L100.0100 #### [facility] [address] [place], [id number] ALT [Catalytic activity/Vol] 12 U/L Low 13-56 [facility] Comment on above: Performed By: #### L 700.6800, L500.4050, L501.2450, L100.0100 #### [facility] [address] [place], [address] AST [Catalytic activity/Vol] 11 U/L Low 15-37 [facility] Comment on above: Performed By: #### L 700.6800, L500.4050, L501.2450, L100.0100 #### [facility] [address] [place], [address] Bilirubin [Mass/Vol] 0.40 mg/dL Normal 0.20-1.00 [facility] Comment on above: Result Comment: For patients on eltrombopag therapy, use of Dimension [place] TBIL is not recommended. Performed By: #### L 700.6800, L500.4050, L501.2450, L100.0100 #### [facility] [address] [place], [address] BUN/CRE 17.4 RATIO Normal 10-20 [facility] Comment on above: Performed By: #### L 700.6800, L500.4050, L501.2450, L100.0100 #### [facility] [address] [place], [address] CA,Total 9.5 mg/dL Normal 8.5-10.1 [facility] Comment on above: Performed By: #### L 700.6800, L500.4050, L501.2450, L100.0100 #### [facility] [address] [place], [address] Chloride [Moles/Vol] 107 mmol/L Normal 98-107 [facility] Comment on above: Performed By: #### L 700.6800, L500.4050, L501.2450, L100.0100 #### [facility] [address] [place], [address] CO2 [Moles/Vol] 22.0 mmol/L Normal 21.0-32.0 [facility] Comment on above: Performed By: #### L 700.6800, L500.4050, L501.2450, L100.0100 #### [facility] [address] [place], [address] Creatinine [Mass/Vol] 0.86 mg/dL Normal 0.55-1.02 [facility] Comment on above: Result Comment: The validity of the calculated GFR GFRAA in patients over 70 years has not been determined. Clinical correlation is essential. Performed By: #### L 700.6800, L500.4050, L501.2450, L100.0100 #### [facility] [address] [place], [address] ECRCL 87.85 ml/min Normal [facility] Comment on above: Performed By: #### L 700.6800, L500.4050, L501.2450, L100.0100 #### [facility] [address] [place], [address] EST GFR - AA 105 mL/min Normal >60 [facility] Comment on above: Result Comment: Afri can [place] GFR Calc Performed By: #### L 700.6800, L500.4050, L501.2450, L100.0100 #### [facility] [address] [place], [address] GAP 8 Normal 5-15 [facility] Comment on above: Performed By: #### L 700.6800, L500.4050, L501.2450, L100.0100 #### [facility] [address] [place], [address] GFR/1.73 sq M.predicted among non-blacks MDRD (S/P/Bld) [Vol rate/Area] 86 mL/min/{1.73_m2} Normal >60 [facility] Comment on above: Result Comment: Non- GFR Calc Performed By: #### L 700.6800, L500.4050, L501.2450, L100.0100 #### [facility] [address] [place], [address] Globulin (S) [Mass/Vol] 3.6 g/dL Normal 2.2-4.2 [facility] Comment on above: Performed By: #### L 700.6800, L500.4050, L501.2450, L100.0100 #### [facility] [address] [place], [address] Glucose [Mass/Vol] 105 mg/dL Normal 74-106 [facility] Comment on above: Result Comment: Fast ing Glucose result from 100 to 125 mg/dL suggests IMPAIRED HOMEOSTASIS per A.D.A. criteria. Performed By: #### L 700.6800, L500.4050, L501.2450, L100.0100 #### [facility] [address] [place], [address] Potassium [Moles/Vol] 3.5 mmol/L Normal 3.5-5.1 [facility] Comment on above: Performed By: #### L 700.6800, L500.4050, L501.2450, L100.0100 #### [facility] [address] [place], [address] Sodium [Moles/Vol] 137 mmol/L Normal 136-145 [facility] Comment on above: Performed By: #### L 700.6800, L500.4050, L501.2450, L100.0100 #### [facility] [address] [place], [address] T PROT 7.7 g/dL Normal 6.4-8.2 [facility] Comment on above: Performed By: #### L 700.6800, L500.4050, L501.2450, L100.0100 #### [facility] [address] [place], [address] Urea nitrogen [Mass/Vol] 15 mg/dL Normal 7-18 [facility] Comment on above: Performed By: #### L 700.6800, L500.4050, L501.2450, L100.0100 #### [facility] [address] [place], [address] Emergency Department Summary on 07-08-2024 Emergency Department Summary [facility] Medical Records Department [address] [address] Emergency Department Summary 07/08/24 MR#: [id number] Acct: [id number] Name: JILL SORIA Rep #: [id number] : 2000 24 From: Pawan Chacko MD PCP: Dr. Delfino Vallejo MD Status:REG ER Location: ED HPI HPI - GI History of Present Illness Chief Complaint: Abd Pain Narrative Narrative: 24-year-old female who denies significant past medical history presents with periumbilical abdominal pain that awoke her from sleep a few hours ago. She describes it as crampy, but also sharp and stabbing. She denies any fevers or chills, no nausea or vomiting, no problems with bowel movement such as diarrhea, but she states that her last bowel movement was yesterday. She usually has coffee and a bowel movement in the morning, but did not go today. No prior abdominal surgeries. She denies any dysuria or hematuria, no exacerbating or alleviating factors. The pain is really in the middle of her stomach/abdomen and radiates outwards. [facility] Medical History Bipolar disorder Alcohol abuse Anxiety Depression Substance abuse Migraines Home Medications ???Medication ???Instructions ???Recorded ???Last Taken ???Type fluoxetine 20 mg capsule 20 mg PO DAILY #14 caps 06/11/21 11/19/23 Rx bupropion HCl 150 mg 24 hr tablet, 150 mg PO DAILY 11/19/23 11/19/23 History extended release dicyclomine 20 mg tablet 20 mg PO TID PRN abdominal pain 07/08/24 Unknown Rx #20 tabs Allergy/AdvReac Type Severity Reaction Status Date / Time amoxicillin Allergy Hives Verified 07/08/24 11:05 Family History Father Heart disease Aunt Cancer Other Thyroid disorder Social History Smoking Status: Current every day smoker tobacco type: cigarettes alcohol intake: current alcohol intake frequency: 0-2 drinks per day Alcohol type: beer substance use type: methamphetamine ROS ROS ED ROS Narrative Constitutional: No fever, no chills. HEENT: No sore throat. No neck pain. No loss of vision. No rhinorrhea. Cardiovascular: No chest pain. No palpitations. No pedal edema. Respiratory: No cough, no shortness of breath. Abdominal: Periumbilical abdominal pain. No nausea. No vomiting. No problems with bowel movements. Genitourinary: No dysuria. No hematuria. Musculoskeletal: No myalgias. No arthralgias. Neurologic: No headaches. No dizziness. No lightheadedness. Skin: No rash. No change in color. Psychiatric: No depression. No anxiety. EXAM Physical Exam Narrative Exam Narrative: Afebrile. Vital signs noted. HEENT: Normocephalic. Atraumatic. PERRL, EOMI. Neck soft and supple. No point tenderness or step off. Cardiovascular: Regular rate and rhythm. No murmurs, rubs, or gallops appreciated. Respiratory: No tachypnea. Lungs clear to auscultation bilaterally. Gastrointestinal: Abdomen soft, mild tenderness to palpation in periumbilical area, suprapubic to left lower quadrant with normoactive bowel sounds. No rebound or guarding. No pain over McBurney's point. Neurological: Awake. Alert. Nonfocal, nonlateralizing. Skin: No rash. Normal color. No pallor. Musculoskeletal: No pedal edema. Full range of motion extremities. Const Vital Signs: 07/08/24 11:05 Temperature 98 F Temperature Source Temporal Pulse Rate 70 Respiratory Rate 14 Blood Pressure 146/97 H Blood Pressure Mean 113 Pulse Ox 100 Oxygen Delivery Method Room Air MDM MDM MDM Narrative Medical decision making narrative: Differential diagnosis includes but not limited to acute appendicitis versus diverticulitis versus cystitis versus nonspecific abdominal pain. Patient states she think it must be indigestion. History and physical does not necessarily support cystitis or diverticulitis or ureterolithiasis. Her pain is more periumbilical than it is in the upper portion of her abdomen so I doubt things such as pancreatitis. Comprehensive workup was pursued. She was offered analgesia, but declined until after workup. I reviewed her laboratory work and she has normal white count of 5.3, hemoglobin normal at 14.6, hematocrit 43.4, platelet count normal at 328. CMP is grossly unremarkable except for LFTs which are low with an AST of 11 and ALT of 12 with alk phos 39 which I think is nonspecific. Lipase normal at 40 so I doubt pancreatitis. Urinalysis negative for infection, I do not feel antibiotics are indicated. I reviewed the radiology report of the CT of the abdomen and pelvis which shows no evidence of an acute process, no obstruction. At this point in time, repeat examination at approximately 1305 shows her to be resting comfortably and she f (more content not included)... Normal [facility] Lipaseon 07-08-2024 Lipase [Catalytic activity/Vol] 40 U/L Normal 13-75 [facility] Comment on above: Result Comment: Miguelina mcclure note: LIPASE revised reference range effective 23. New Lipase methodology. Expected to produce lower values than the previous assay method. NEW Reference Range: 13 - 75 U/L Performed By: #### L [id number], L500.4050, L501.2450, L100.0100 ####[facility] [address] [place], [address] ,Serum,hCG Quali.on 07-08-2024 HCG, SERUM QUAL Negative Normal [facility] Comment on above: Performed By: #### L [id number], L500.4050, L501.2450, L100.0100 #### [facility] [address] [place], [address] Urinalysis, Completeon 07-08 EPI,SQUAMOUS 0-5 SEEN Normal 5-10 [facility] Comment on above: Order Comment: CLEAN CATCH Performed By: #### L [id number] #### [facility] [address] [place], [address] BACTERIA 0 SEEN Normal None Seen [facility] Comment on above: Order Comment: CLEAN CATCH Performed By: #### L [id number] #### [facility] [address] [place], [address] Mucus Ql (Urine sed) 0 SEEN Normal [facility] Comment on above: Order Comment: CLEAN CATCH Performed By: #### L [id number] #### [facility] [address] [facility] [address] RBC 0 SEEN Normal 0-5 [facility] Comment on above: Order Comment: CLEAN CATCH Performed By: #### L [id number] #### [facility] [address] [facility] [address] WBC 0 SEEN Normal 0-5 [facility] Comment on above: Order Comment: CLEAN CATCH Performed By: #### L [id number] #### [facility] [address] [place], [address] Vital Signs Date Time Vital Sign Value Performing Clinician Facility 09-17-2025 23:04-0400 Body temperature 98.24 [degF] LUPILLO STEPHENSON MD [facility] 09-17-2025 23:04-0400 Diastolic Blood Pressure Non-Invasive 86 mm[Hg] LUPILLO STEPHENSON MD [facility] 09-17-2025 23:04-0400 Heart rate 58 /min LUPILLO STEPHENSON MD [facility] 09-17-2025 23:04-0400 Respiratory rate 18 /min LUPILLO STEPHENSON MD [facility] 09-17-2025 23:04-0400 Systolic Blood Pressure Non-Invasive 121 mm[Hg] LUPILLO STEPHENSON MD [facility] 05-23-2025 10:46-0400 Diastolic blood pressure 71 mm[Hg] Darling Branham WAX CUTTER.HOT DIP PLATING SUPERVISOR Work Phone: [facility] 05-23-2025 10:46-0400 Heart rate 81 /min Darling Branham WAX CUTTER.HOT DIP PLATING SUPERVISOR Work Phone: [facility] 05-23-2025 10:46-0400 Respiratory rate 16 /min Darling Branham WAX CUTTER.HOT DIP PLATING SUPERVISOR Work Phone: [facility] 05-23-2025 10:46-0400 SaO2% (BldA) [Mass fraction] 100 % Darling Branham WAX CUTTER.HOT DIP PLATING SUPERVISOR Work Phone: [facility] 05-23-2025 10:46-0400 Systolic blood pressure 109 mm[Hg] Darling Branham WAX CUTTER.HOT DIP PLATING SUPERVISOR Work Phone: [facility] 2025 13:28-0400 Body mass index (BMI) [Ratio] 22.26 kg/m2 Christiana Briones PA-C Work Phone: [facility] 2025 13:28-0400 Body temperature 98.4 [degF] Christiana Briones PA-C Work Phone: [facility] 2025 13:28-0400 Body weight 59.88 kg Christiana Briones PA-C Work Phone: [facility] 2025 13:28-0400 Diastolic blood pressure 70 mm[Hg] Christiana Briones PA-C Work Phone: [facility] 2025 13:28-0400 Heart rate 96 /min Christiana Briones PA-C Work Phone: [facility] 2025 13:28-0400 Respiratory rate 16 /min Christiana Briones PA-C Work Phone: [facility] 2025 13:28-0400 SaO2% (BldA) [Mass fraction] 97 % Christiana Briones PA-C Work Phone: [facility] 2025 13:28-0400 Systolic blood pressure 110 mm[Hg] Christiana Briones PA-C Work Phone: [facility] 01-24-2025 08:58-0500 Diastolic blood pressure 78 mm[Hg] Darling Haagen WAX CUTTER.HOT DIP PLATING SUPERVISOR Work Phone: [facility] 01-24-2025 08:58-0500 Heart rate 88 /min Darling Haagen WAX CUTTER.HOT DIP PLATING SUPERVISOR Work Phone: [facility] 01-24-2025 08:58-0500 Respiratory rate 16 /min Darling Haagen WAX CUTTER.HOT DIP PLATING SUPERVISOR Work Phone: [facility] 01-24-2025 08:58-0500 SaO2% (BldA) [Mass fraction] 98 % Darling Haagen WAX CUTTER.HOT DIP PLATING SUPERVISOR Work Phone: [facility] 01-24-2025 08:58-0500 Systolic blood pressure 116 mm[Hg] Darling Haagen WAX CUTTER.HOT DIP PLATING SUPERVISOR Work Phone: [facility] 07-22-2024 13:46-0400 Body height 164 cm Christiana Briones PA-C Work Phone: [facility] 07-22-2024 13:46-0400 Body mass index (BMI) [Ratio] 23.5 kg/m2 Christiana Briones PA-C Work Phone: [facility] 07-22-2024 13:46-0400 Body temperature 98.29 [degF] Christiana Briones PA-C Work Phone: [facility] 07-22-2024 13:46-0400 Body weight 63.2 kg Christiana Briones PA-C Work Phone: [facility] 07-22-2024 13:46-0400 Diastolic blood pressure 68 mm[Hg] Christiana Briones PA-C Work Phone: [facility] 07-22-2024 13:46-0400 Heart rate 88 /min Christiana Briones PA-C Work Phone: [facility] 07-22-2024 13:46-0400 Respiratory rate 16 /min Christiana Briones PA-C Work Phone: [facility] 07-22-2024 13:46-0400 SaO2% (BldA) [Mass fraction] 98 % Christiana Briones PA-C Work Phone: [facility] 07-22-2024 13:46-0400 Systolic blood pressure 110 mm[Hg] Christiana Briones PA-C Work Phone: [facility] 03-09-2024 09:54-0400 Body temperature 97.7 [degF] Christiana Briones PA-C Work Phone: [facility] 03-09-2024 09:54-0400 Body weight 69.4 kg Christiana Briones PA-C Work Phone: [facility] 03-09-2024 09:54-0400 Diastolic blood pressure 88 mm[Hg] Christiana Briones PA-C Work Phone: [facility] 03-09-2024 09:54-0400 Heart rate 86 /min Christiana Briones PA-C Work Phone: [facility] 03-09-2024 09:54-0400 Respiratory rate 16 /min Christiana Briones PA-C Work Phone: [facility] 03-09-2024 09:54-0400 SaO2% (BldA) [Mass fraction] 98 % Christiana Briones PA-C Work Phone: [facility] 03-09-2024 09:54-0400 Systolic blood pressure 118 mm[Hg] Christiana Briones PA-C Work Phone: [facility] 11-19-2023 10:17-0500 Body temperature 98.5 [degF] [facility] 11-19-2023 10:17-0500 Diastolic blood pressure 77 mm[Hg] [facility] 11-19-2023 10:17-0500 Heart rate 78 /min [facility] 11-19-2023 10:17-0500 Respiratory rate 16 /min [facility] 11-19-2023 10:17-0500 SaO2% (BldA) [Mass fraction] 99 % [facility] 11-19-2023 10:17-0500 Systolic blood pressure 116 mm[Hg] [facility] 11-19-2023 08:13-0500 Body height 162.56 cm [facility] 11-19-2023 08:13-0500 Body mass index (BMI) [Ratio] 26.6 kg/m2 [facility] 11-19-2023 08:13-0500 Body weight 70.3 kg [facility] 09-19-2023 14:08-0400 Body weight 63.23 kg Darling Branham WAX CUTTER.HOT DIP PLATING SUPERVISOR Work Phone: [facility] 09-19-2023 14:08-0400 Diastolic blood pressure 62 mm[Hg] Darling Celayaagen WAX CUTTER.HOT DIP PLATING SUPERVISOR Work Phone: [facility] 09-19-2023 14:08-0400 Heart rate 72 /min Darling Haagen WAX CUTTER.HOT DIP PLATING SUPERVISOR Work Phone: [facility] 09-19-2023 14:08-0400 Respiratory rate 16 /min Darling Haagen WAX CUTTER.HOT DIP PLATING SUPERVISOR Work Phone: [facility] 09-19-2023 14:08-0400 SaO2% (BldA) [Mass fraction] 97 % Darling Branham WAX CUTTER.HOT DIP PLATING SUPERVISOR Work Phone: [facility] 09-19-2023 14:08-0400 Systolic blood pressure 110 mm[Hg] Darling Branham WAX CUTTER.HOT DIP PLATING SUPERVISOR Work Phone: [facility] 08-13-2022 13:14-0400 Body temperature 99 [degF] Christiana Briones PA-C Work Phone: [facility] 08-13-2022 13:14-0400 Body weight 66.22 kg Christiana Briones PA-C Work Phone: [facility] 08-13-2022 13:14-0400 Diastolic blood pressure 70 mm[Hg] Christiana PRABHAKAR-C Work Phone: [facility] 08-13-2022 13:14-0400 Heart rate 68 /min Christiana PRABHAKAR-C Work Phone: [facility] 08-13-2022 13:14-0400 Respiratory rate 16 /min Christiana Briones PA-C Work Phone: [facility] 08-13-2022 13:14-0400 Systolic blood pressure 96 mm[Hg] Christiana PRABHAKAR-C Work Phone: [facility] Encounters Encounter Date Encounter Type Care Provider Facility Start: 09-21-2025 End: 09-21-2025 ambulatory CHRISTIANA BRIONES Facility:[facility] Start: 09-17-2025 End: 09-18-2025 Emergency department patient visit LUPILLO STEPHENSON MD [facility] Start: 05-23-2025 End: 05-23-2025 ambulatory DARLING BRANHAM Facility:[facility] Start: 05-23-2025 End: 05-23-2025 Office outpatient visit 15 minutes Darling Branham APRN.HOT DIP PLATING SUPERVISOR Work Phone: [facility] Comment on above: Hirsutism (Primary D x) Start: 2025 End: 2025 ambulatory CHRISTIANA BRIONES Facility:[facility] Start: 2025 End: 2025 Patient encounter procedure Christiana Briones PA-C Work Phone: [facility] Comment on above: Anxiety and depressi on (Primary Dx); Smoker; Bipolar affective disorder, currently manic, mild (HCC) Start: 03-25-2025 End: 03-25-2025 ambulatory Thomas PRABHAKAR Facility[place] Start: 01-28-2025 End: 02-08-2025 Follow-up encounter Darling Branham APRN.HOT DIP PLATING SUPERVISOR Work Phone: [facility] Start: 01-24-2025 End: 01-24-2025 Office outpatient visit 25 minutes Darling [facility] WAX CUTTER.HOT DIP PLATING SUPERVISOR Work Phone: [facility] Comment on above: Hirsutism (Primary D x); Anxiety and depression Start: 01-24-2025 End: 01-24-2025 ambulatory DARLING TUYET Facility:[facility] Start: 10-11-2024 End: 10-11-2024 Chart abstracting Delfino Vallejo MD [facility] Phone[facility] Comment on above: Outside [id number] Ordered Start: 10-08-2024 End: 10-08-2024 Chart abstracting Delfino Vallejo MD Work Phone: [facility] Comment on above: Outside Ettv-Ppq-CRP Ordered Start: 10-08-2024 End: 10-08-2024 ambulatory Delfino Vallejo Facility:[facility] Start: 10-08-2024 End: 10-08-2024 ambulatory Thomas PRABHAKAR Facility:[facility] Start: 07-22-2024 End: 07-22-2024 Patient encounter procedure Christiana Briones PA-C Work Phone: [facility] Comment on above: Well adult exam (Flores conner Dx); Migraine with aura and without status migrainosus, not intractable; Anxiety and depression; Bipolar affective disorder, currently manic, mild (HCC) Start: 07-22-2024 End: 07-22-2024 Patient encounter status Christiana Briones PA-C Work Phone: [facility] Work Phone: Start: 07-08-2024 Chart abstracting Delfino aguirre MD Work Phone: [facility] Start: 07-08-2024 End: 07-08-2024 Emergency department patient visit Delfino Vallejo Facility:[facility] Start: 03-11-2024 Telephone encounter Christiana rascon PA-C Work Phone: [facility] Comment on above: Results Start: 03-09-2024 End: 03-09-2024 Patient encounter procedure Christiana Briones PA-C Work Phone: [facility] Comment on above: Anxiety and depressi on (Primary Dx); Screening for diabetes mellitus; Encounter for lipid screening for cardiovascular disease Start: 11-19-2023 End: 11-19-2023 Emergency department patient visit [facility] Work Phone: Start: 09-19-2023 End: 09-19-2023 Patient encounter procedure Darling Celayatuyet VIGIL.HOT DIP PLATING SUPERVISOR Work Phone: [facility] Comment on above: Wellness examination (Primary Dx) Start: 09-19-2023 End: 09-19-2023 Patient encounter status Darling Hatuyet VIGIL.HOT DIP PLATING SUPERVISOR Work Phone: [facility] Work Phone: Start: 2023 End: 2023 ambulatory [facility] Work Phone: Start: 2023 End: 2023 Patient encounter procedure [facility]-Laboratory, Specimen Start: 02-04-2023 Registered Recurring [facility] Start: 09-02-2022 ambulatory Christiana lowe PA-C Work Phone: [facility] Comment on above: [place] Start: 08-13-2022 End: 08-13-2022 Patient encounter procedure Christiana LAWLERC Work Phone: [facility] Comment on above: Eustachian tube dysf unction, bilateral (Primary Dx) Start: 05-08-2022 Telephone encounter Christiana PRABHAKAR-C Work Phone: [facility] Comment on above: Results Plan of Treatment Date Care Activity Detail Author Start: 05-05-2026 Screening for malign ant neoplasm of cervix Cervical Cancer Screening [facility] Start: 2026 Covid-19 Vaccine () Covid-19 Vaccine () [facility] Comment on above: Postponed from 08/01 (Declined at this time) Start: 2026 Pneumococcal vaccination Pneum ococcal Vaccine (1 of 1 - PPSV23) [facility] Comment on above: Postponed from 04/07 (Declined at this time) Start: 2026 Urine microalbumin profile DTaP,Tdap,Td Vaccine (7 - Td or Tdap) [facility] Comment on above: Postponed from 09/07 (Declined at this time) Start: 07-22-2025 Covid-19 Vaccine () Covid-19 Vaccine () [facility] Comment on above: Postponed from 08/01 (Declined at this time) Start: 07-22-2025 GC (Gonorrhea) Scree doreen () GC (Gonorrhea) Screening () [facility] Comment on above: Postponed from 04/07 (Declined at this time) Start: 07-22-2025 Screening for Chlamy nikki trachomatis Chlamydia Screening () [facility] Comment on above: Postponed from 04/07 (Declined at this time) Start: 01-24-2025 End: 04-25-2025 17-Hydroxyprogesterone [Mass/volume] in Serum or Plasma [facility] Comment on above: Expected: 01/24/2025 , Expires: 04/25/2025 Start: 01-24-2025 End: 04-25-2025 Androstenedione [Mass/volume] in Serum or Plasma [facility] Comment on above: Expected: 01/24/2025 , Expires: 04/25/2025 Start: 01-24-2025 End: 04-25-2025 CBC W Auto Differential panel - Blood [facility] Comment on above: Expected: 01/24/2025 , Expires: 04/25/2025 Start: 01-24-2025 End: 04-25-2025 Comprehensive metabolic 2000 panel - Serum or Plasma [facility] Comment on above: Expected: 01/24/2025 , Expires: 04/25/2025 Start: 01-24-2025 End: 04-25-2025 DHEA-S BLD [facility] Comment on above: Expected: 01/24/2025 , Expires: 04/25/2025 Start: 01-24-2025 End: 04-25-2025 Sex hormone binding globulin [Moles/volume] in Serum or Plasma [facility] Comment on above: Expected: 01/24/2025 , Expires: 04/25/2025 Start: 01-24-2025 End: 04-25-2025 Testosterone [Mass/volume] in Serum or Plasma [facility] Comment on above: Expected: 01/24/2025 , Expires: 04/25/2025 Start: 01-24-2025 End: 04-25-2025 Thyrotropin [Units/volume] in Serum or Plasma [facility] Work Phone: Comment on above: Expected: 01/24/2025 , Expires: 04/25/2025 Start: 01-24-2025 End: 04-25-2025 Thyroxine (T4) free [Mass/volume] in Serum or Plasma [facility] Comment on above: Expected: 01/24/2025 , Expires: 04/25/2025 Start: 08-01-2024 Covid-19 Vaccine () Covid-19 Vaccine () [facility] Start: 08-01-2024 Influenza vaccination Influenza Vacc ine (#1) [facility] Start: 03-09-2024 End: 06-08-2024 Comprehensive metabolic 2000 panel - Serum or Plasma COMP METABOLIC PANEL Lab Routine Anxiety and depression Expected: 03/09/2024, Expires: 06/08/2024 [facility] Work Phone: Comment on above: Expected: 03/09/2024 , Expires: 06/08/2024 Start: 03-09-2024 End: 06-08-2024 Hemoglobin A1c in Blood HGB A1C Lab Routine Screening for diabetes mellitus Expected: 03/09/2024, Expires: 06/08/2024 [facility] Work Phone: Comment on above: Expected: 03/09/2024 , Expires: 06/08/2024 Start: 03-09-2024 End: 06-08-2024 LIPID PANEL, NONFASTING LIPID PANEL, NONFASTING Lab Routine Encounter for lipid screening for cardiovascular disease Expected: 03/09/2024, Expires: 06/08/2024 [facility] Work Phone: Comment on above: Expected: 03/09/2024 , Expires: 06/08/2024 Start: 11-19-2023 [facility] Start: 09-07-2023 Urine microalbumin profile [facility] Start: 08-01-2023 Covid-19 Vaccine ( season) Covid-19 Vaccine ( season) [facility] Start: 08-01-2023 Influenza vaccination Influenza Vacc ine (#1) [facility] Start: 08-01-2022 Influenza vaccination C [facility] Start: 2022 PAP TESTING PAP TESTING [facility] Start: 2022 Screening for malign ant neoplasm of cervix [facility] Start: 2019 CHLAMYDIA SCREENING () CHLAMYDIA SCREENING () [facility] Start: 2019 GC (GONORRHEA) SCREE DOREEN (1824) GC (GONORRHEA) SCREENING () [facility] Start: 2019 HEPATITIS C SCREENING HEPATITIS C SC REENING [facility] Start: 2019 Screening for Chlamy nikki trachomatis Chlamydia Screening () [facility] Start: 07-22-2018 Meningococcal B Vacc ine (2 of 2 - Bexsero SCDM 2-dose series) Meningococcal B Vaccine (2 of 2 - Bexsero SCDM 2-dose series) [facility] Start: 02-19-2018 Meningococcal B Vacc ine: Consider Based On Risk (2 of 2 - Risk Bexsero 2-dose series) Meningococcal B Vaccine: Consider Based On Risk (2 of 2 - Risk Bexsero 2-dose series) [facility] Start: 02-19-2018 MENINGOCOCCAL B: Con signals intelligence analysis manager based on risk (2 of 2 - Risk Bexsero 2-dose series) MENINGOCOCCAL B: Consider based on risk (2 of 2 - Risk Bexsero 2-dose series) [facility] Start: 2015 PEDS TO ADULT TRANSI TION ANNUAL ASSESSMENT PEDS TO ADULT TRANSITION ANNUAL ASSESSMENT [facility] Start: 2013 PEDS TO ADULT TRANSI TION INITIAL DISCUSSION PEDS TO ADULT TRANSITION INITIAL DISCUSSION [facility] Start: 01-29-2007 PNEUMOCOCCAL (1 - PP SV23 or PCV20) PNEUMOCOCCAL (1 - PPSV23 or PCV20) [facility] Start: 2006 COVID-19 VACCINE (#1) COVID-19 VACCI NE (#1) [facility] Start: 2001 COVID-19 VACCINE (#1) COVID-19 VACCI NE (#1) [facility] Path report.final Dx Spec [facility] Patient Education ED Laceration, All Closures [facility] Work Phone: Patient referral [facility] Work Phone: Immunizations Immunization Date Immunization Notes Care Provider [facility] 10-25-2024 influenza, seasonal, injectable, preservative free Christiana Briones PA-C Work Phone: [facility] 09-18-2023 influenza, injectabl e, quadrivalent, preservative free [facility] 09-18-2023 influenza virus vacc ine, unspecified formulation Delfino Vallejo MD Work Phone: [facility] 02-04-2023 influenza, injectabl e, quadrivalent, preservative free [facility] 02-04-2023 influenza, seasonal, injectable [facility] 02-04-2023 influenza virus vacc ine, unspecified formulation Darling Branham APRN.HOT DIP PLATING SUPERVISOR Work Phone: [facility] 01-31-2023 COVID-19 original vaccine, full dose, monovalent (MODERNA) Darling Branham APRN.HOT DIP PLATING SUPERVISOR Work Phone: [facility] Work Phone: 01-22-2018 meningococcal polysaccharide (groups A, C, Y and W-135) diphtheria toxoid conjugate vaccine (MCV4P) Christiana Briones PA-C Work Phone: [facility] 09-07-2013 tetanus toxoid, redu tomi diphtheria toxoid, and acellular pertussis vaccine, adsorbed Christiana Briones PA-C Work Phone: [facility] 02-25-2012 human papilloma viru s vaccine, quadrivalent Christiana Briones PA-C Work Phone: [facility] Work Phone: 09-10-2011 human papilloma viru s vaccine, quadrivalent Christiana Anselmo PA-C Work Phone: [facility] Work Phone: 07-11-2011 human papilloma viru s vaccine, quadrivalent Christiana Anselmo PA-C Work Phone: [facility] Work Phone: 07-11-2011 varicella virus vaccine Mona newton Anselmo PA-C Work Phone: [facility] Work Phone: 10-05-2007 influenza virus vacc ine, unspecified formulation Christiana Anselmo PA-C Work Phone: [facility] Work Phone: 01-29-2006 diphtheria, tetanus toxoids and acellular pertussis vaccine Christiana Anselmo PA-C Work Phone: [facility] Work Phone: 01-29-2006 diphtheria, tetanus toxoids and acellular pertussis vaccine, unspecified formulation Christianahoney Briones PA-C Work Phone: [facility] 01-29-2006 measles, mumps and rubella virus vaccine Christiana Anselmo PA-C Work Phone: [facility] Work Phone: 01-29-2006 pneumococcal conjuga te vaccine, 13 valent Christiana Briones PA-C Work Phone: [facility] Work Phone: 01-29-2006 pneumococcal conjuga te vaccine, 7 valent Christianahoney Briones PA-C Work Phone: [facility] 01-29-2006 poliovirus vaccine, inactivated Christianahoney Briones PA-C Work Phone: [facility] Work Phone: 07-19-2002 diphtheria, tetanus toxoids and acellular pertussis vaccine Christianahoney Briones PA-C Work Phone: [facility] Work Phone: 07-19-2002 diphtheria, tetanus toxoids and acellular pertussis vaccine, unspecified formulation Christiana Briones PA-C Work Phone: [facility] 07-19-2002 haemophilus influenz ae type b vaccine, conjugate unspecified formulation Christiana Briones PA-C Work Phone: [facility] 07-19-2002 haemophilus influenz ae type b vaccine, HbOC conjugate Christiana Briones PA-C Work Phone: [facility] Work Phone: 07-19-2002 hepatitis B vaccine, pediatric or pediatric/adolescent dosage Christiana Briones PA-C Work Phone: [facility] 04-09-2002 measles, mumps and rubella virus vaccine Christiana Briones PA-C Work Phone: [facility] Work Phone: 04-09-2002 varicella virus vaccine Mona newton Briones PA-C Work Phone: [facility] Work Phone: 2001 diphtheria, tetanus toxoids and acellular pertussis vaccine Christiana Briones PA-C Work Phone: [facility] Work Phone: 2001 diphtheria, tetanus toxoids and acellular pertussis vaccine, unspecified formulation Christiana Briones PA-C Work Phone: [facility] 2001 haemophilus influenz ae type b conjugate and Hepatitis B vaccine Christiana Briones PA-C Work Phone: [facility] 2001 haemophilus influenz ae type b vaccine, HbOC conjugate Christiana Briones PA-C Work Phone: [facility] Work Phone: 2001 hepatitis B vaccine, pediatric or pediatric/adolescent dosage Christiana Briones PA-C Work Phone: [facility] Work Phone: 2001 pneumococcal conjuga te vaccine, 13 valent Christiana Anselmo PA-C Work Phone: [facility] Work Phone: 2001 pneumococcal conjuga te vaccine, 7 valent Christianahoney Briones PA-C Work Phone: [facility] 2001 poliovirus vaccine, inactivated Christianahoney Briones PA-C Work Phone: [facility] Work Phone: 2001 poliovirus vaccine, unspecified formulation Christianahoney Briones PA-C Work Phone: [facility] 2001 diphtheria, tetanus toxoids and acellular pertussis vaccine Christianahoney Briones PA-C Work Phone: [facility] Work Phone: 2001 diphtheria, tetanus toxoids and acellular pertussis vaccine, unspecified formulation Christianahoney Briones PA-C Work Phone: [facility] 2001 haemophilus influenz ae type b conjugate and Hepatitis B vaccine Christianahoney Briones PA-C Work Phone: [facility] 2001 haemophilus influenz ae type b vaccine, HbOC conjugate Christianahoney Briones PA-C Work Phone: [facility] Work Phone: 2001 hepatitis B vaccine, pediatric or pediatric/adolescent dosage Christianahoney Briones PA-C Work Phone: [facility] Work Phone: 2001 pneumococcal conjuga te vaccine, 13 valent Christiana Briones PA-C Work Phone: [facility] Work Phone: 2001 pneumococcal conjuga te vaccine, 7 valent Christianahoney Briones PA-C Work Phone: [facility] 2001 poliovirus vaccine, inactivated Christianahoney Briones PA-C Work Phone: [facility] Work Phone: 2001 poliovirus vaccine, unspecified formulation Christianahoney Briones PA-C Work Phone: [facility] 2001 diphtheria, tetanus toxoids and acellular pertussis vaccine Christiana Briones PA-C Work Phone: [facility] Work Phone: 2001 diphtheria, tetanus toxoids and acellular pertussis vaccine, unspecified formulation Christiana Briones PA-C Work Phone: [facility] 2001 haemophilus influenz ae type b vaccine, conjugate unspecified formulation Christiana Briones PA-C Work Phone: [facility] 2001 haemophilus influenz ae type b vaccine, HbOC conjugate Christiana Briones PA-C Work Phone: [facility] Work Phone: 2001 hepatitis B vaccine, pediatric or pediatric/adolescent dosage Christiana Briones PA-C Work Phone: [facility] 2001 poliovirus vaccine, inactivated Christiana Briones PA-C Work Phone: [facility] Work Phone: 2001 poliovirus vaccine, unspecified formulation Christiana Briones PA-C Work Phone: [facility] 2001 hepatitis B vaccine, pediatric or pediatric/adolescent dosage Christiana Briones PA-C Work Phone: [facility] Work Phone: Payers Date Payer Category Payer Unknown [id number] 2024 Self-pay [id number] 2023 Unknown [id number] 2022 Private Health Insurance [id number] 2021 Unknown HARRY RACHEL PPO [id number] 2021-Present [phone] [address] [place] [address] PPO [id number] 2021 Medicaid [employer] MED[employer] ID [employer] MEDICAID [id number] 2021-Present [phone] [address] [place] [address] Medicaid [id number] 2021 Medicaid [employer] MED[employer] ID [employer] MEDICAID [id number] 2021-Present [phone] [address] [place] [address] Medicaid [id number] 2016 Unknown ANTHEM BLUE ACCE SS PPO [id number] 2016-Present [phone] [address] [place] [address] PPO [id number] 2001 Unknown [id number] Medicaid [id number] Private Health Insurance [facility] [id number] Unknown ANTHEM [id number] Unknown ANTHEM SECONDARY [id number] Unknown [employer] [id number] Unknown PARAMOUNT ADV MC D *DO NOT USE* [id number] Unknown ANTHEM [id number] Unknown [id number] Unknown [id number] Unknown [id number] Unknown [id number] Social History Date Type Detail Facility Start: 09-14-2021 End: 2025 Tobacco smoking status NHIS Smokes tobacco daily [facility] End: 05-19-2022 History of tobacco use Cigarette Smoker [facility] Start: 09-14-2021 End: 01-24-2025 Cigarettes smoked current (pack per day) - Reported 0.5 [facility] Start: 09-14-2021 End: 2025 Tobacco use and exposure Smokeless tobacco non-user [facility] Start: 05-07-2022 End: 05-23-2025 Alcohol intake Current non-drinker of alcohol (finding) [facility] Start: 05-07-2022 End: 08-13-2022 Tobacco Comment 1/4-12 ppd [facility] Start: 2001 Sex Assigned At Not on file [facility] Start: 04-27-2022 End: 08-13-2022 Exposure to SARS-CoV-2 (event) Not sure [facility] Start: 08-13-2022 End: 07-22-2024 Tobacco smoking status NHIS Ex-smoker [facility] End: 05-19-2022 History of tobacco use Current smoker [facility] Start: 06-11-2021 End: 11-19-2023 Tobacco smoking status OHIS Unknown if ever smoked [facility] Start: 2001 Sex Assigned At Female [facility] Start: 09-19-2023 End: 01-24-2025 Tobacco use panel [facility] Start: 09-17-2025 Adult Depression Scr eening Assessment 0 [facility] Has the crossvertise, [employer], [employer], or water company threatened to shut off services in your home in past 12Mo No [facility] Do you belong to any clubs or organizations such as faith groups, unions, fraternal or athletic groups, or school groups? Yes [facility] Are you now , , , , never or living with a partner? Never [facility] How often to you hav e a drink containing alcohol? Never [facility] Do you feel stress - tense, restless, nervous, or anxious, or unable to sleep at night because your mind is troubled all the time - these days [OSQ] Not at all [facility] (I/We) worried wheth er (my/our) food would run out before (I/we) got money to buy more. Never true [facility] Tobacco smoking status [facility] Start: 09-17-2025 Sex Female (finding) [facility] Functional Status Date Assessment Result Facility 09-18-2025 Functional Status Room check per formed, Transmission And Protection Engineer at bedside [facility] 09-17-2025 [facility] 09-17-2025 Functional Status [facility] 2025 Total score [AUDIT-C] 0 04/07/20 11:46 AM EDT [facility] 2025 Within the last year , have you been humiliated or emotionally abused in other ways by your partner or ex-partner? No 2025 11:46 AM EDT [facility] Within the last year , have you been afraid of your partner or ex-partner? No 2025 11:46 AM EDT [facility] 2025 Within the last year , have you been raped or forced to have any kind of sexual activity by your partner or ex-partner? No 2025 11:46 AM EDT [facility] 20[facility] Within the last year , have you been kicked, hit, slapped, or otherwise physically hurt by your partner or ex-partner? No 2025 11:46 AM EDT [facility] How often to you hav e a drink containing alcohol? Never 2025 11:46 AM EDT UserDoug Never [facility] 2025 Functional status Patient does n ot drink 2025 11:46 AM EDT Doug Porter Patient does not drink [facility] 2025 How often do you hav e 6 or more drinks on 1 occasion? Never 2025 11:46 AM EDT Doug Porter Never [facility] 05-21-2015 Are you deaf, or do you have serious difficulty hearing No 05/21/2015 12:23 PM EDT Suki De La Rosa LPN No [facility] 05-21-2015 Are you blind, or do you have serious difficulty seeing, even when wearing glasses No 05/21/2015 12:23 PM Suki Hirsch LPN No [facility] 05-21-2015 Do you have serious difficulty walking or climbing stairs No 05/21/2015 12:23 PM EDSuki Treviño LPN No [facility] 05-21-2015 Do you have difficul ty dressing or bathing No 05/21/2015 12:23 PM EDSuki Treviño LPN No [facility] Mental Status Date Assessment Result Facility 09-18-2025 Mental Status Orientation Oriented x 4 [facility] 09-17-2025 Mental Status [facility] 05-21-2015 Because of a physica l, mental, or emotional condition, do you have serious difficulty concentrating, remembering, or making decisions No 05/21/2015 12:23 PM Suki Treviño LPN No [facility] Clinical Notes 03-29-2014 to 09-21-2025 Note Date & Type Note Facility 09-21-2025 Note HNO ID: [id number] Author: CHRISTIANA BRIONES PA-C Service: ? Author Type: Physician It Software Engineer Type: Progress Notes Filed: 09/21/2025 08:34 Note Text: DISTANCE HEALTH VISIT [facility] Zoom Video Visit was used for evaluation of this patient. Patient consents to visit. Patient's location: [place] I have communicated my name and active licensure. The patient's identity and physical location were verified at the time of this visit. Either the patient or their legal guest service representative has been informed of the risks and benefits of -- and alternatives to -- treatment through a remote evaluation and consents to proceed with the evaluation remotely. Chief Complaint Patient presents with: Depression HPI Jlil UDMONT is a 25 year old female who presents here today via virtual for depression. Jill DUMONT is a 25-year-old female presenting for medication management. Depression: - Currently taking Wellbutrin. - Recently resumed Prozac after a period of discontinuation due to lack of refills. - Requests to increase Prozac dosage to 40 mg, noting perceived improvement with an extra dose. - Recent comprehensive lab work in January showed normal kidney and liver function, and blood counts. - Last cholesterol check was last year, results were normal. Lifestyle: - on August 01 - Has not received the flu vaccine this year and is not planning to. Past medical history, appointments, medications, allergies reviewed. Previous Medical History PAST MEDICAL HISTORY Diagnosis Date Anxiety and depression 11/16/2019 Bipolar affective disorder, currently manic, mild (HCC) 11/16/2019 History of alcohol abuse 09/14/2021 Sober since 07/20/2021, attending [facility] and [facility] History of methamphetamine abuse ([facility]) 09/14/2021 Sober since 06/07/2021 Doing 180 and NA Irregular menses 01/22/2018 Irritable bowel syndrome 03/29/2014 Major depressive disorder 10/19/2014 See notes from counseling Center Migraine with aura and without status migrainosus, not intractable 04/10/2017 Previous Surgical History PAST SURGICAL HISTORY Procedure Laterality Date D+C NONE Family History FAMILY HISTORY Problem Relation Age of Onset Heart Maternal Grandmother Hypertension Maternal Grandmother Ischemic Heart Disease Maternal Grandmother Breast Cancer Paternal Grandmother Breast Cancer Paternal Aunt Patient Allergies ALLERGIES Allergen Reactions Amoxicillin Rash Current Medications Current Outpatient Medications on File Prior to Visit Medication Sig FLUoxetine (PROZAC) 20 mg capsule Take 1 capsule by mouth once daily. spironolactone (ALDACTONE) 25 mg tablet Take 1 tablet by mouth two times a day. buPROPion SR (WELLBUTRIN SR) 100 mg 12 hr tablet Take 1 tablet by mouth once daily. No current facility-administered medications on file prior to visit. Social History SOCIAL HISTORY[1] Review of Symptoms REVIEW OF SYSTEMS GENERAL: No weight loss, malaise or fevers See HPI EXAM: LMP 12/28/2024 Any vital signs collected today were done so using patient's home equipment, otherwise no vital signs due to distant health visit. PHYSICAL EXAMINATION: VIDEO EXAM: (if done, performed via video enabled technology) GENERAL: alert and appropriate, in no distress, well-hydrated, well nourished, and happy, smiling, interactive RESPIRATORY: breathing non-labored CHEST: equal chest rise with normal respiratory effort NEUROLOGIC: no facial droop, speech is clear and fluent and no obvious deficit Health Maintenance List DTaP,Tdap,Td Vaccine(7 - Td or Tdap) due on 2026 Pneumococcal Vaccine(1 of 1 - PPSV23, PCV20, or PCV21) due on 2026 Influenza Vaccine(1) due on 05/30/2026 Covid-19 Vaccine(3 - season) due on 09/21/2026 Cervical Cancer Screening due on 05/05/2026 Hepatitis B Vaccine Completed HPV Vaccine Completed Hepatitis C Screening Completed HIV Screening Completed Assessment and Plan 1. Major depressive disorder, recurrent, in partial remission (F33.41) 2. Anxiety and depression (F41.9) 3. Bipolar affective disorder, currently manic, mild (HCC) (F31.11) - Restarted Prozac; reports improvement with increased dose. - Increase Prozac to 40 mg daily; prescription sent. - Continue Wellbutrin as prescribed. - Advised to contact clinic sooner if symptoms persist or worsen at higher Prozac dose. - Follow-up at next physical exam, recommended in approximately 6 months. Christiana Briones PA-C Recording using [employer] software for draft documentation of the visit was discussed with the patient/authorized guest service representative; all questions welcomed and answered. Patient/authorized guest service representative agreed to proceed [1] Social History Tobacco Use Smoking status: Every Day Current packs/day: 0.00 Types: Cigarettes Last attempt to quit: 05/19/2022 Years since quittin.3 Smokeless tobacco: Never Tobacco comments: 12/04-12/02 pp (more content not included)... [facility] 09-18-2025 Hospital Discharge instructions Patient Education 09/18/2025 01:44:03 Depression Depression Depression is one of the most common mental health problems today. It is not just a state of unhappiness or sadness. It is a true disease. The cause seems to be related to a decrease in chemicals that transmit signals in the brain. Having a family history of depression, alcoholism, or suicide increases the risk. Chronic illness, chronic pain, migraine headaches, and high emotional stress also increase the risk. Depression is something we tend to recognize in others, but may have a hard time seeing in ourselves. It can show in many physical and emotional ways: Loss of appetite Overeating Not being able to sleep Sleeping too much Tiredness not related to physical exertion Restlessness or irritability Slowness of movement or speech Feeling depressed or withdrawn Loss of interest in things you once enjoyed Trouble concentrating, poor memory, trouble making decisions Thoughts of harming or killing oneself, or thoughts that life is not worth living Low self-esteem The treatment for depression may include both medicine and psychotherapy. Antidepressants can reduce suffering and can improve the ability to function during the depressed period. Therapy can offer emotional support and help you understand emotional factors that may be causing the depression. Home care Ongoing care and support help people manage this disease. Find a healthcare provider and therapist who meet your needs. Seek help when you feel like you may be getting ill. Be kind to yourself. Make it a point to do things that you enjoy (gardening, walking in nature, going to a movie). Reward yourself for small successes. Take care of your physical body. Eat a balanced diet (low in saturated fat and high in fruits and vegetables). Exercise at least 3 times a week for 30 minutes. Even mild-moderate exercise (like brisk walking) can make you feel better. Don't drink alcohol, which can make depression worse. Take medicine as prescribed. Tell each of your healthcare providers about all of the prescription and [id number] medicines, vitamins, and supplements you take. Certain supplements interact with medicines and can result in dangerous side effects. Ask your pharmacist when you have questions about medicine interactions. Talk with your family and trusted friends about your feelings and thoughts. Ask them to help you recognize behavior changes early so you can get help and, if needed, medicine can be adjusted. Follow-up care Follow up with your healthcare provider, or as advised. Call 911 Call 911 if you: Have suicidal thoughts, a suicide plan, and the means to carry out the plan; or serious thoughts of hurting someone else Have trouble breathing Are very confused Feel very drowsy or have trouble awakening Faint or lose consciousness Have new chest pain that becomes more severe, lasts longer, or spreads into your shoulder, arm, neck, jaw, or back When to seek medical advice Call your healthcare provider right away if any of these happen: Feeling extreme depression, fear, anxiety, or anger toward yourself or others Feeling out of control Feeling that you may try to harm yourself or another Hearing voices that others do not hear Seeing things that others do not see Can t sleep or eat for 3 days in a row Friends or family express concern over your behavior and ask you to seek help [phone] [employer]. [address] [place] [address], [place] [address]. All rights reserved. This information is not intended as a substitute for professional medical care. Always follow your healthcare professional's instructions. Follow Up Care 09/17/2025 22:54:20 With:DELFINO VALLEJO MD Address: [address] [place] [address] [phone] When:2-[address] [facility] 09-18-2025 Note Discharge Instructions Thank you for allowing [facility] to assist you with your healthcare needs. The following is important discharge information regarding your hospital visit. What to Do Next Instructions from Your Care Team No qualifying data available. Post Acute Orders No qualifying data available. You Need to Schedule the Following Appointments Follow Up with DELFINO VALLEJO MD When:Within 2-4 days Where:[address] [place] [id number]- Allergies amoxicillin Medications Please ask your primary doctor or pharmacist before taking any other medication not listed, including over the counter drugs, herbal medications, vitamins and or supplements as they may interact with your home medications. Please take this list to your next doctor s visit. Bring all medications you take, including over the counter medications, herbals and other supplements with you to your doctor s visit. Patients and families are reminded to discard old lists and to update any records with all medication providers or retail pharmacies. Education Materials Depression Depression is one of the most common mental health problems today. It is not just a state of unhappiness or sadness. It is a true disease. The cause seems to be related to a decrease in chemicals that transmit signals in the brain. Having a family history of depression, alcoholism, or suicide increases the risk. Chronic illness, chronic pain, migraine headaches, and high emotional stress also increase the risk. Depression is something we tend to recognize in others, but may have a hard time seeing in ourselves. It can show in many physical and emotional ways: Loss of appetite Overeating Not being able to sleep Sleeping too much Tiredness not related to physical exertion Restlessness or irritability Slowness of movement or speech Feeling depressed or withdrawn Loss of interest in things you once enjoyed Trouble concentrating, poor memory, trouble making decisions Thoughts of harming or killing oneself, or thoughts that life is not worth living Low self-esteem The treatment for depression may include both medicine and psychotherapy. Antidepressants can reduce suffering and can improve the ability to function during the depressed period. Therapy can offer emotional support and help you understand emotional factors that may be causing the depression. Home care Ongoing care and support help people manage this disease. Find a healthcare provider and therapist who meet your needs. Seek help when you feel like you may be getting ill. Be kind to yourself. Make it a point to do things that you enjoy (gardening, walking in nature, going to a movie). Reward yourself for small successes. Take care of your physical body. Eat a balanced diet (low in saturated fat and high in fruits and vegetables). Exercise at least 3 times a week for 30 minutes. Even mild-moderate exercise (like brisk walking) can make you feel better. Don't drink alcohol, which can make depression worse. Take medicine as prescribed. Tell each of your healthcare providers about all of the prescription and [id number] medicines, vitamins, and supplements you take. Certain supplements interact with medicines and can result in dangerous side effects. Ask your pharmacist when you have questions about medicine interactions. Talk with your family and trusted friends about your feelings and thoughts. Ask them to help you recognize behavior changes early so you can get help and, if needed, medicine can be adjusted. Follow-up care Follow up with your healthcare provider, or as advised. Call 911 Call 911 if you: Have suicidal thoughts, a suicide plan, and the means to carry out the plan; or serious thoughts of hurting someone else Have trouble breathing Are very confused Feel very drowsy or have trouble awakening Faint or lose consciousness Have new chest pain that becomes more severe, lasts longer, or spreads into your shoulder, arm, neck, jaw, or back When to seek medical advice Call your healthcare provider right away if any of these happen: Feeling extreme depression, fear, anxiety, or anger toward yourself or others Feeling out of control Feeling that you may try to harm yourself or another Hearing voices that others do not hear Seeing things that others do not see Can t sleep or eat for 3 days in a row Friends or family express concern over your behavior and ask you to seek help [phone] [employer]. [address] [place] [address], [place] [address]. All rights reserved. This information is not intended as a substitute for professional medical care. Always follow your healthcare professional's instructions. Additional Information VACCINATE! IT SAVES LIVES! Members of the community who have not yet received the COVID-19 vaccine and would like to receive it can visit one of [facility] vaccine clinics. There are many vaccine clinic locations within the [facility]. For locations and available times, please visit [email or web address] It is important to note that some COVID mobile vaccine clinics are held outdoors and may be canceled in rainy or stormy conditions. To learn more about pediatric vaccinations (ages 5-11), we invite you to visit the [facility] webpage. [email or web address] To learn more about the COVID-19 vaccine, we invite you to visit the CDC website for a list of frequently asked questions. https://www.cdc.gov/coronavirus/ 2019-ncov/vaccines/faq.html [facility] Patient Portal Access Instructions: Stay connected with your healthcare team and access your personal medical information anytime with the [facility] Patient Portal. If you would like a full copy of your medical records please contact the [facility] Medical Records Department Friday through Friday between 8a.m. and 4:30p.m. Please follow the directions below to access the portal: 1.Access the email account you provided upon registration to the [facility].2.Look for an invitation email from [facility].3.Open the email and access the invitation link: Accept Invitation to [employer]4.Fill in the required salamanca to create your account. To access your account, visit [employer] or scan the Sweet P's code above. Click the blue button labeled Access Patient Portal and then log in with the username and password that you created in the steps above. You can then view a summary of results, a summary of your visits, and the ability to download your summaries to your computer or send the information securely to a physician. Remember that your healthcare information is confidential, so carefully consider who you will allow to register on the [employer] Patient Portal for access to your information. You can also access the [employer] Patient Portal on the [employer]. Simply click on Health Records under Health Data and then click on the [employer] logo. HOW TO SAFELY DISPOSE OF PRESCRIPTION MEDICATIONS Please use one of the following methods to safely dispose of your unused medications. 1.Use a drug disposal kit: the drug disposal pouch allows you to safely discard your old and unused drugs. Ask your nurse to give you one when you are discharged.2.Visit a local take-back location: Many local pharmacies and police departments have programs that collect old and unwanted prescription drugs. Call your local pharmacy or go to http://[employer] AMD.LikeBright/7J1Ut2c to find one close to you.3.Make use of household items: Use cat litter or old coffee grounds to dispose medications if other options are not available. Mix your drugs with these household products, seal them in an airtight container and throw it into the garbage. Call [facility]: [phone] to be sure your drugs can be disposed of in this way. Some medicines may require a different approach.4.Never flush your medications down the toilet. IF YOU HAVE BEEN PRESCRIBED AN OPIOIDS FOR PAIN If you have been prescribed an opioid (such as hydrocodone, oxycodone or morphine), it is critical to understand the possible side effects and risks of opioid pain medications. Even when taken as directed, opioids can have several side effects including: Tolerance, meaning you might need to take more of a medication for the same pain relief. Nausea, vomiting and/or constipation. Sleepiness, dizziness, dry mouth, confusion, depression or itching. Physical dependence, meaning you have withdrawal symptoms when a medication is stopped ? this can develop within a few days. KNOW YOUR RESPONSIBILITIES It is important to know exactly how much and how often to take the opioid pain medications you are prescribed. Never take opioids in higher amounts or more often than prescribed. Do not combine opioids with alcohol or other drugs that cause drowsiness, such as benzodiazepines, also known as benzos, including diazepam and alprazolam, muscle relaxants or sleep aids. Never sell or share prescription opioids. This is illegal. Store opioids in a secure place and out of reach of others (including children, family, friends and visitors). The last page(s) of this document has been signed and retained as a CHART COPY Signatures Patient Education Materials Depression Medication Leaflets My discharge plan and instructions have been reviewed and explained to me and I,JILL DUMONT understand my current condition and have read and understand these discharge instructions. I have received a written copy of the plan/instructions. If I have questions, I am aware that I should contact my doctor. 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 09-17-2025 Note Exam Date Time Procedure Performing Provider Status 09/17/25 11:15 PM EKG [ED AO] - CV LUPILLO STEPHENSON; Auth (Verified) ECG Final Report Sinus rhythm Electronic Signature: LUPILLO STEPHENSON MD 09/18/2025 00:28:[address] [facility]06-23-2025 Instructions* Patient Instructions* Darling Branham APRN.HOT DIP PLATING SUPERVISOR - 05/23/2025 11:07 AM EDT Continue same medication. Get labs checked at some point soon. [facility]25 NoteHNO ID: [id number] Author: DARLING BRANHAM APRN.CNP Service: ? Author Type: Nurse Practitioner Type: Progress Notes Filed: 05/23/2025 12:24 Note Text: This is a 25 year old female who presents today with: Patient presents with: Follow Up HISTORY OF PRESENT ILLNESS: Jill Soria is a 25 year old female. Patient presents with: Follow Up Here to follow-up on spironolactone. Refers that she feels like it is working. Notices slowing of hair growth. No side effects. Admits that doesn't always take twice daily. PAST MEDICAL HISTORY: PAST MEDICAL HISTORY Diagnosis Date Anxiety and depression 11/16/2019 Bipolar affective disorder, currently manic, mild ([facility]) 11/16/2019 History of alcohol abuse 09/14/2021 Sober since 07/20/2021, attending [facility] and [facility] History of methamphetamine abuse ([facility]) 09/14/2021 Sober since 06/07/2021 Doing 180 and NA Irregular menses 01/22/2018 Irritable bowel syndrome 03/29/2014 Major depressive disorder 10/19/2014 See notes from counseling Center Migraine with aura and without status migrainosus, not intractable 04/10/2017 PAST SURGICAL HISTORY Procedure Laterality Date D+C NONE ALLERGIES Amoxicillin MEDICATIONS Current Outpatient Medications Medication Sig spironolactone (ALDACTONE) 25 mg tablet Take 1 tablet by mouth two times a day. buPROPion SR (WELLBUTRIN SR) 100 mg 12 hr tablet Take 1 tablet by mouth once daily. FLUoxetine (PROZAC) 20 mg capsule Take 1 capsule by mouth once daily. No current facility-administered medications for this visit. FAMILY HISTORY Problem Relation Age of Onset Heart Maternal Grandmother Hypertension Maternal Grandmother Ischemic Heart Disease Maternal Grandmother Breast Cancer Paternal Grandmother Breast Cancer Paternal Aunt Social History Tobacco Use Smoking status: Every Day Current packs/day: 0.00 Types: Cigarettes Last attempt to quit: 05/19/2022 Years since quittin.0 Smokeless tobacco: Never Tobacco comments: 12/04-12/02 ppd Vaping Use Vaping status: Never Used Substance Use Topics Alcohol use: No Drug use: Not Currently EXAM: BP 109/71 Pulse 81 Resp 16 LMP 12/28/2024 SpO2 100% PHYSICAL EXAM: General Appearance: Well appearing, alert, in no acute distress, well-hydrated, well nourished.. Skin: Skin color, texture, turgor normal, no suspicious rashes or lesions. Head: Normocephalic, no masses, lesions, tenderness or abnormalities. Eyes: Anicteric sclera. Extraocular movements are intact. . Lungs: Lungs clear to auscultation. No wheezing, rhonchi, rales. Heart: RRR without murmur, gallop, or rubs. No ectopy. Neurologic: Gait normal. ASSESSMENT/PLAN: 1. Hirsutism - ICD9: 704.1, ICD10: L68.0 Improving. Refill spironolactone. Get BMP. She can take 50 mg once daily if has trouble remembering to take twice daily. - SPIRONOLACTONE 25 MG TABLET Discussed treatment plan and patient voices understanding. Patient's questions answered appropriately. Medications and potential side effects were discussed and patient voices understanding. Return to the office as scheduled or as needed for worsening/no improvement. Darling Branham APRN.[facility] History of Present illness Narrative* Darling Branham APRN.HOT DIP PLATING SUPERVISOR - 05/23/2025 10:58 AM EDT This is a 25 year old female who presents today with: Patient presents with: Follow Up HISTORY OF PRESENT ILLNESS: Jill Soria is a 25 year old female. Patient presents with: Follow Up Here to follow-up on spironolactone. Refers that she feels like it is working. Notices slowing of hair growth. No side effects. Admits that doesn't always take twice daily. PAST MEDICAL HISTORY: PAST MEDICAL HISTORY Diagnosis Date Anxiety and depression 11/16/2019 Bipolar affective disorder, currently manic, mild (HCC) 11/16/2019 History of alcohol abuse 09/14/2021 Sober since 07/20/2021, attending [facility] and [facility] History of methamphetamine abuse (HCC) 09/14/2021 Sober since 06/07/2021 Doing 180 and NA Irregular menses 01/22/2018 Irritable bowel syndrome 03/29/2014 Major depressive disorder 10/19/2014 See notes from counseling Center Migraine with aura and without status migrainosus, not intractable 04/10/2017 PAST SURGICAL HISTORY Procedure Laterality Date D+C NONE ALLERGIES Amoxicillin MEDICATIONS Current Outpatient Medications Medication Sig spironolactone (ALDACTONE) 25 mg tablet Take 1 tablet by mouth two times a day. buPROPion SR (WELLBUTRIN SR) 100 mg 12 hr tablet Take 1 tablet by mouth once daily. FLUoxetine (PROZAC) 20 mg capsule Take 1 capsule by mouth once daily. No current facility-administered medications for this visit. FAMILY HISTORY Problem Relation Age of Onset Heart Maternal Grandmother Hypertension Maternal Grandmother Ischemic Heart Disease Maternal Grandmother Breast Cancer Paternal Grandmother Breast Cancer Paternal Aunt Social History Tobacco Use Smoking status: Every Day Current packs/day: 0.00 Types: Cigarettes Last attempt to quit: 05/19/2022 Years since quittin.0 Smokeless tobacco: Never Tobacco comments: 12/04-12/02 ppd Vaping Use Vaping status: Never Used Substance Use Topics Alcohol use: No Drug use: Not Currently EXAM: BP 109/71 Pulse 81 Resp 16 LMP 12/28/2024 SpO2 100% PHYSICAL EXAM: General Appearance: Well appearing, alert, in no acute distress, well-hydrated, well nourished.. Skin: Skin color, texture, turgor normal, no suspicious rashes or lesions. Head: Normocephalic, no masses, lesions, tenderness or abnormalities. Eyes: Anicteric sclera. Extraocular movements are intact. . Lungs: Lungs clear to auscultation. No wheezing, rhonchi, rales. Heart: RRR without murmur, gallop, or rubs. No ectopy. Neurologic: Gait normal. ASSESSMENT/PLAN: 1. Hirsutism - ICD9: 704.1, ICD10: L68.0 Improving. Refill spironolactone. Get BMP. She can take 50 mg once daily if has trouble remembering to take twice daily. - SPIRONOLACTONE 25 MG TABLET Discussed treatment plan and patient voices understanding. Patient's questions answered appropriately. Medications and potential side effects were discussed and patient voices understanding. Return to the office as scheduled or as needed for worsening/no improvement. Darling Branham APRN.HOT DIP PLATING SUPERVISOR documented in [facility]25 NoteHNO ID: [id number] Author: CHRISTIANA BRIONES PA-C Service: ? Author Type: Physician It Software Engineer Type: Progress Notes Filed: 2025 13:48 Note Text: Chief Complaint Patient presents with: Rx Refills HPI Jill Soria is a 25 year old female who presents here today for Chronic Medical Conditions.. Patient with hx of anxiety/depression, bipolar, hx oa alcohol/drug abuse, migraine, and those as below. Smokes 5-10 cig/day . Not interested in quitting yet. Past medical history, appointments, medications, allergies reviewed. Previous Medical History PAST MEDICAL HISTORY Diagnosis Date Anxiety and depression 11/16/2019 Bipolar affective disorder, currently manic, mild (HCC) 11/16/2019 History of alcohol abuse 09/14/2021 Sober since 07/20/2021, attending [facility] and [facility] History of methamphetamine abuse ([facility]) 09/14/2021 Sober since 06/07/2021 Doing 180 and NA Irregular menses 01/22/2018 Irritable bowel syndrome 03/29/2014 Major depressive disorder 10/19/2014 See notes from counseling Center Migraine with aura and without status migrainosus, not intractable 04/10/2017 Previous Surgical History PAST SURGICAL HISTORY Procedure Laterality Date D+C NONE Family History FAMILY HISTORY Problem Relation Age of Onset Heart Maternal Grandmother Hypertension Maternal Grandmother Ischemic Heart Disease Maternal Grandmother Breast Cancer Paternal Grandmother Breast Cancer Paternal Aunt Patient Allergies ALLERGIES Allergen Reactions Amoxicillin Rash Current Medications Current Outpatient Medications on File Prior to Visit Medication Sig FLUoxetine (PROZAC) 20 mg capsule Take 1 capsule by mouth once daily. buPROPion SR (WELLBUTRIN SR) 100 mg 12 hr tablet Take 1 tablet by mouth once daily. No current facility-administered medications on file prior to visit. Social History Social History Tobacco Use Smoking status: Every Day Current packs/day: 0.00 Types: Cigarettes Last attempt to quit: 05/19/2022 Years since quittin.8 Smokeless tobacco: Never Tobacco comments: 12/04-12/02 ppd Vaping Use Vaping status: Never Used Substance Use Topics Alcohol use: No Drug use: Not Currently Review of Symptoms REVIEW OF SYSTEMS GENERAL: No weight loss, malaise or fevers NECK: Negative for lumps, goiter, pain and significant neck swelling RESPIRATORY: Negative for cough, hemoptysis, wheezing, COPD, dyspnea or shortness of breath CARDIOVASCULAR: Negative for chest pain, leg swelling, hypertension, CHF or palpitations NEURO: No history of headaches, syncope, paralysis, seizures or tremors SEE HPI EXAM: BP 110/70 (BP Site: Left Arm, BP Position: Sitting, BP Cuff Size: Regular Adult) Pulse 96 Temp 36.9 ?C (98.4 ?F) Resp 16 Wt 59.9 kg (132 lb) LMP 12/28/2024 SpO2 97% BMI 22.26 kg/m? General Appearance: Well appearing, alert, in no acute distress, well-hydrated, well nourished.. Neck: Supple, no adenopathy; thyroid symmetric, normal size, no bruits. Lungs: Lungs clear to auscultation. No wheezing, rhonchi, rales.. Heart: RRR without murmur, gallop, or rubs. No ectopy. Extremities: No deformities, edema, skin discoloration, clubbing or cyanosis. Good capillary refill. . Peripheral Pulses: Normal. Health Maintenance List GC (Gonorrhea) Screening (18-24) due on 07/22/2025 Chlamydia Screening (18-24) due on 07/22/2025 DTaP,Tdap,Td Vaccine(7 - Td or Tdap) due on 2026 Covid-19 Vaccine( season) due on 2026 Cervical Cancer Screening due on 05/05/2026 Hepatitis B Vaccine Completed HPV Vaccine Completed Influenza Vaccine Completed Hepatitis C Screening Completed HIV Screening Completed Data reviewed Assessment and Plan ASSESSMENT/PLAN: 1. Anxiety and depression - ICD9: 300.00, 311, ICD10: F41.9, F32.A (primary diagnosis) Stable Refills sent - FLUOXETINE 20 MG CAPSULE 2. Smoker - ICD9: 305.1, ICD10: F17.200 - Cessation encouraged. - Physiologic and physical aspects of tobacco addiction as well as strategies for quitting were discussed. - Counseling was given focusing on the harmful effects of this addiction especially given the patient's medical condition(s) which will be worsened because of the chemicals in tobacco. 3. Bipolar affective disorder, currently manic, mild (HCC) - ICD9: 296.41, ICD10: F31.11 Stable. Follow up yearly. [facility]05-08-2025 History of Present illness Narrative* Christiana Briones PA-C - 2025 1:35 PM EDT Chief Complaint Patient presents with: Rx Refills HPI Jill Soria is a 25 year old female who presents here today for Chronic Medical Conditions.. Patient with hx of anxiety/depression, bipolar, hx oa alcohol/drug abuse, migraine, and those as below. Smokes 5-10 cig/day . Not interested in quitting yet. Past medical history, appointments, medications, allergies reviewed. Previous Medical History PAST MEDICAL HISTORY Diagnosis Date Anxiety and depression 11/16/2019 Bipolar affective disorder, currently manic, mild (HCC) 11/16/2019 History of alcohol abuse 09/14/2021 Sober since 07/20/2021, attending [facility] and AA History of methamphetamine abuse ([facility]) 09/14/2021 Sober since 06/07/2021 Doing 180 and NA Irregular menses 01/22/2018 Irritable bowel syndrome 03/29/2014 Major depressive disorder 10/19/2014 See notes from counseling Center Migraine with aura and without status migrainosus, not intractable 04/10/2017 Previous Surgical History PAST SURGICAL HISTORY Procedure Laterality Date D+C NONE Family History FAMILY HISTORY Problem Relation Age of Onset Heart Maternal Grandmother Hypertension Maternal Grandmother Ischemic Heart Disease Maternal Grandmother Breast Cancer Paternal Grandmother Breast Cancer Paternal Aunt Patient Allergies ALLERGIES Allergen Reactions Amoxicillin Rash Current Medications Current Outpatient Medications on File Prior to Visit Medication Sig FLUoxetine (PROZAC) 20 mg capsule Take 1 capsule by mouth once daily. buPROPion SR (WELLBUTRIN SR) 100 mg 12 hr tablet Take 1 tablet by mouth once daily. No current facility-administered medications on file prior to visit. Social History Social History Tobacco Use Smoking status: Every Day Current packs/day: 0.00 Types: Cigarettes Last attempt to quit: 05/19/2022 Years since quittin.8 Smokeless tobacco: Never Tobacco comments: 12/04-12/02 ppd Vaping Use Vaping status: Never Used Substance Use Topics Alcohol use: No Drug use: Not Currently Review of Symptoms REVIEW OF SYSTEMS GENERAL: No weight loss, malaise or fevers NECK: Negative for lumps, goiter, pain and significant neck swelling RESPIRATORY: Negative for cough, hemoptysis, wheezing, COPD, dyspnea or shortness of breath CARDIOVASCULAR: Negative for chest pain, leg swelling, hypertension, CHF or palpitations NEURO: No history of headaches, syncope, paralysis, seizures or tremors SEE HPI EXAM: BP 110/70 (BP Site: Left Arm, BP Position: Sitting, BP Cuff Size: Regular Adult) Pulse 96 Temp 36.9 C (98.4 F) Resp 16 Wt 59.9 kg (132 lb) LMP 12/28/2024 SpO2 97% BMI 22.26 kg/m General Appearance: Well appearing, alert, in no acute distress, well-hydrated, well nourished.. Neck: Supple, no adenopathy; thyroid symmetric, normal size, no bruits. Lungs: Lungs clear to auscultation. No wheezing, rhonchi, rales.. Heart: RRR without murmur, gallop, or rubs. No ectopy. Extremities: No deformities, edema, skin discoloration, clubbing or cyanosis. Good capillary refill. . Peripheral Pulses: Normal. Health Maintenance List GC (Gonorrhea) Screening (18-24) due on 07/22/2025 Chlamydia Screening (18-24) due on 07/22/2025 DTaP,Tdap,Td Vaccine(7 - Td or Tdap) due on 2026 Covid-19 Vaccine( season) due on 2026 Cervical Cancer Screening due on 05/05/2026 Hepatitis B Vaccine Completed HPV Vaccine Completed Influenza Vaccine Completed Hepatitis C Screening Completed HIV Screening Completed Data reviewed Assessment and Plan ASSESSMENT/PLAN: 1. Anxiety and depression - ICD9: 300.00, 311, ICD10: F41.9, F32.A (primary diagnosis) Stable Refills sent - FLUOXETINE 20 MG CAPSULE 2. Smoker - ICD9: 305.1, ICD10: F17.200 - Cessation encouraged. - Physiologic and physical aspects of tobacco addiction as well as strategies for quitting were discussed. - Counseling was given focusing on the harmful effects of this addiction especially given the patient's medical condition(s) which will be worsened because of the chemicals in tobacco. 3. Bipolar affective disorder, currently manic, mild (HCC) - ICD9: 296.41, ICD10: F31.11 Stable. Follow up yearly. Christiana Briones PA-C documented in [facility] Instructions* Patient Instructions* Darling Branham APRN.CNP - 01/24/2025 9:32 AM EST Get labs. More to come. documented in this encounterC[facility]02-24-2025 NoteHNO ID: [id number] Author: DARLING BRANHAM APRN.CNP Service: ? Author Type: Nurse Practitioner Type: Progress Notes Filed: 01/24/2025 10:45 Note Text: This is a 24 year old female who presents today with: Patient presents with: Discussion: Questions about wellbutrin; recently decreased dosage HISTORY OF PRESENT ILLNESS: Jill Soria is a 24 year old female. Patient presents with: Discussion: Questions about wellbutrin; recently decreased dosage Pt presents today with questions re: wellbutrin. Refers that she has been on the wellbutrin for 3 1/2 years. She has noticed progressively worsening problems with dark/course hair growth. Refer first noticed maybe a year after first starting it. Feels like it decreases libido. Also has noticed some issues with lubrication. Also noticed some hair growth on the breasts. Refers that she has to shave her face daily. Periods have been regular for the last few years. Not on any control. Would like to discuss options, as wellbutrin has been very helpful w/ mood. PAST MEDICAL HISTORY: PAST MEDICAL HISTORY Diagnosis Date Anxiety and depression 11/16/2019 Bipolar affective disorder, currently manic, mild (HCC) 11/16/2019 History of alcohol abuse 09/14/2021 Sober since 07/20/2021, attending [facility] and AA History of methamphetamine abuse (HCC) 09/14/2021 Sober since 06/07/2021 Doing 180 and NA Irregular menses 01/22/2018 Irritable bowel syndrome 03/29/2014 Major depressive disorder 10/19/2014 See notes from counseling Center Migraine with aura and without status migrainosus, not intractable 04/10/2017 PAST SURGICAL HISTORY Procedure Laterality Date D+C NONE ALLERGIES Amoxicillin MEDICATIONS Current Outpatient Medications Medication Sig FLUoxetine (PROZAC) 20 mg capsule Take 1 capsule by mouth once daily. buPROPion SR (WELLBUTRIN SR) 100 mg 12 hr tablet Take 1 tablet by mouth once daily. No current facility-administered medications for this visit. FAMILY HISTORY Problem Relation Age of Onset Heart Maternal Grandmother Hypertension Maternal Grandmother Ischemic Heart Disease Maternal Grandmother Breast Cancer Paternal Grandmother Breast Cancer Paternal Aunt Social History Tobacco Use Smoking status: Former Current packs/day: 0.00 Types: Cigarettes Quit date: 05/19/2022 Years since quittin.6 Smokeless tobacco: Never Tobacco comments: 12/04-12/02 ppd Vaping Use Vaping status: Never Used Substance Use Topics Alcohol use: No Drug use: Not Currently EXAM: BP 116/78 Pulse 88 Resp 16 LMP 12/28/2024 SpO2 98% PHYSICAL EXAM: General Appearance: Well appearing, alert, in no acute distress, well-hydrated, well nourished.. Skin: Skin color, texture, turgor normal, no suspicious rashes or lesions. Head: Normocephalic, no masses, lesions, tenderness or abnormalities. Eyes: Anicteric sclera. Extraocular movements are intact. . Neck: Supple, no adenopathy; thyroid symmetric, normal size, no bruits. Lungs: Lungs clear to auscultation. No wheezing, rhonchi, rales.. Heart: RRR without murmur, gallop, or rubs. No ectopy. Abdomen: Abdomen soft, non-tender. Bowel sounds normal. No masses, organomegaly. Neurologic: Gait normal. ASSESSMENT/PLAN: 1. Hirsutism - ICD9: 704.1, ICD10: L68.0 (primary diagnosis) Will go ahead and check some labs. Discussed with patient that there is no known really is not a common complaint with Wellbutrin. She would like to get some lab work drawn. Will go ahead and check labs. She is very happy with the effect of the Wellbutrin on her mental health. Did discuss possibly adding spironolactone to her treatment regimen if needed. - THYROID STIMULATING HORMONE - T4 FREE/FREE THYROXINE - TESTOSTERONE, TOTAL BY IMMUNOASSAY (ADULT MALES, OR INDIVIDUALS ON TESTOSTERONE THERAPY) - HYDROXYPROGESTERONE-17 - DHEA-S BLD - ANDROSTENEDIONE BLD - SEX-HORMONE BINDING - COMPLETE BLOOD COUNT AND DIFFERENTIAL - COMPREHENSIVE METABOLIC PANEL 2. Anxiety and depression - ICD9: 300.00, 311, ICD10: F41.9, F32.A Controlled on current medication regimen. Discussed treatment plan and patient voices understanding. Patient's questions answered appropriately. Medications and potential side effects were discussed and patient voices understanding. Return to the office as scheduled or as needed for worsening/no improvement. Darling Branham APRN.[facility]02-24-2025 History of Present illness Narrative* Darling Branham APRN.[facility] - 01/24/2025 9:02 AM EST This is a 24 year old female who presents today with: Patient presents with: Discussion: Questions about wellbutrin; recently decreased dosage HISTORY OF PRESENT ILLNESS: Jill Soria is a 24 year old female. Patient presents with: Discussion: Questions about wellbutrin; recently decreased dosage Pt presents today with questions re: wellbutrin. Refers that she has been on the wellbutrin for 3 1/2 years. She has noticed progressively worsening problems with dark/course hair growth. Refer first noticed maybe a year after first starting it. Feels like it decreases libido. Also has noticed some issues with lubrication. Also noticed some hair growth on the breasts. Refers that she has to shave her face daily. Periods have been regular for the last few years. Not on any control. Would like to discuss options, as wellbutrin has been very helpful w/ mood. PAST MEDICAL HISTORY: PAST MEDICAL HISTORY Diagnosis Date Anxiety and depression 11/16/2019 Bipolar affective disorder, currently manic, mild ([facility]) 11/16/2019 History of alcohol abuse 09/14/2021 Sober since 07/20/2021, [facility] History of methamphetamine abuse (HCC) 09/14/2021 Sober since 06/07/2021 Doing [facility] and NA Irregular menses 01/22/2018 Irritable bowel syndrome 03/29/2014 Major depressive disorder 10/19/2014 See notes from counseling Center Migraine with aura and without status migrainosus, not intractable 04/10/2017 PAST SURGICAL HISTORY Procedure Laterality Date D+C NONE ALLERGIES Amoxicillin MEDICATIONS Current Outpatient Medications Medication Sig FLUoxetine (PROZAC) 20 mg capsule Take 1 capsule by mouth once daily. buPROPion SR (WELLBUTRIN SR) 100 mg 12 hr tablet Take 1 tablet by mouth once daily. No current facility-administered medications for this visit. FAMILY HISTORY Problem Relation Age of Onset Heart Maternal Grandmother Hypertension Maternal Grandmother Ischemic Heart Disease Maternal Grandmother Breast Cancer Paternal Grandmother Breast Cancer Paternal Aunt Social History Tobacco Use Smoking status: Former Current packs/day: 0.00 Types: Cigarettes Quit date: 05/19/2022 Years since quittin.6 Smokeless tobacco: Never Tobacco comments: 12/04-12/02 ppd Vaping Use Vaping status: Never Used Substance Use Topics Alcohol use: No Drug use: Not Currently EXAM: BP 116/78 Pulse 88 Resp 16 LMP 12/28/2024 SpO2 98% PHYSICAL EXAM: General Appearance: Well appearing, alert, in no acute distress, well-hydrated, well nourished.. Skin: Skin color, texture, turgor normal, no suspicious rashes or lesions. Head: Normocephalic, no masses, lesions, tenderness or abnormalities. Eyes: Anicteric sclera. Extraocular movements are intact. . Neck: Supple, no adenopathy; thyroid symmetric, normal size, no bruits. Lungs: Lungs clear to auscultation. No wheezing, rhonchi, rales.. Heart: RRR without murmur, gallop, or rubs. No ectopy. Abdomen: Abdomen soft, non-tender. Bowel sounds normal. No masses, organomegaly. Neurologic: Gait normal. ASSESSMENT/PLAN: 1. Hirsutism - ICD9: 704.1, ICD10: L68.0 (primary diagnosis) Will go ahead and check some labs. Discussed with patient that there is no known really is not a common complaint with Wellbutrin. She would like to get some lab work drawn. Will go ahead and check labs. She is very happy with the effect of the Wellbutrin on her mental health. Did discuss possibly adding spironolactone to her treatment regimen if needed. - THYROID STIMULATING HORMONE - T4 FREE/FREE THYROXINE - TESTOSTERONE, TOTAL BY IMMUNOASSAY (ADULT MALES, OR INDIVIDUALS ON TESTOSTERONE THERAPY) - HYDROXYPROGESTERONE-17 - DHEA-S BLD - ANDROSTENEDIONE BLD - SEX-HORMONE BINDING - COMPLETE BLOOD COUNT AND DIFFERENTIAL - COMPREHENSIVE METABOLIC PANEL 2. Anxiety and depression - ICD9: 300.00, 311, ICD10: F41.9, F32.A Controlled on current medication regimen. Discussed treatment plan and patient voices understanding. Patient's questions answered appropriately. Medications and potential side effects were discussed and patient voices understanding. Return to the office as scheduled or as needed for worsening/no improvement. Darling Branham APRN.[employer] documented in this encounterC[facility]11-11-2024 NoteHNO ID: [id number] Author: TARA RAMON LPN Service: ? Author Type: LICENSED NURSE Type: Progress Notes Filed: 10/11/2024 14:46 Note Text: Scan on 10/10/2024 9:34 AM by Mateus Salter PA-C: [facility]11[facility]-2024 History of Present illness Narrative* Tara Ramon LPN - 10/11/2024 2:43 PM EST Scan on 10/10/2024 9:34 AM by ProviderMateus PA-C: Microbiology documented in this encounterCleveland [facility]11-08-2024 NoteHNO ID: [id number] Author: TARA RAMON LPN Service: ? Author Type: LICENSED NURSE Type: Progress Notes Filed: 10/08/2024 13:17 Note Text: Scan on 10/08/2024 11:26 AM by Mateus Salter PA-C: [facility]11-08-2024 History of Present illness Narrative* Tara Ramon LPN - 10/08/2024 1:16 PM EST Scan on 10/08/2024 11:26 AM by Provider, HALIE Ignacio: Microbiology documented in this encounterCleveland [facility]08-22-2024 Instructions* Patient Instructions* Christiana Briones PA-C - 07/22/2024 1:56 PM EDT Please check records for last Tdap. Let me know when you last had it done. If you cannot find the records, we can get that updated. documented in this encounterCleveland Clinic [facility]08-22-2024 History of Present illness Narrative* Christiana Briones PA-C - 07/22/2024 1:52 PM EDT Chief Complaint Patient presents with: Insurance Physical HPI Jill Soria is a 24 year old female who presents here today for physical. Patient with hx as below. No concerns today. Needs Physical for insurance/work Doing well with current management of depression/anxiety/bipolar. Past medical history, appointments, medications, allergies reviewed. Previous Medical History PAST MEDICAL HISTORY 11/16/2019: Anxiety and depression 11/16/2019: Bipolar affective disorder, currently manic, mild ([facility]) 09/14/2021: History of alcohol abuse Comment: Sober since 07/20/2021, attending [facility] 09/14/2021: History of methamphetamine abuse ([facility]) Comment: Sober since 06/07/2021 Doing [facility] and NA 01/22/2018: Irregular menses 03/29/2014: Irritable bowel syndrome 10/19/2014: Major depressive disorder Comment: See notes from counseling Center 04/10/2017: Migraine with aura and without status migrainosus, not intractable Previous Surgical History PAST SURGICAL HISTORY No date: D+C No date: NONE Family History FAMILY HISTORY Problem Relation Age of Onset Heart Maternal Grandmother Hypertension Maternal Grandmother Ischemic Heart Disease Maternal Grandmother Breast Cancer Paternal Grandmother Breast Cancer Paternal Aunt Patient Allergies ALLERGIES Allergen Reactions Amoxicillin Rash Current Medications Current Outpatient Medications on File Prior to Visit Medication Sig FLUoxetine (PROZAC) 20 mg capsule Take 1 capsule by mouth once daily. buPROPion SR (WELLBUTRIN SR) 100 mg 12 hr tablet Take 1 tablet by mouth once daily. No current facility-administered medications on file prior to visit. Social History Social History Tobacco Use Smoking status: Former Current packs/day: 0.00 Types: Cigarettes Quit date: 05/19/2022 Years since quittin.1 Smokeless tobacco: Never Tobacco comments: 12/04-12/02 ppd Vaping Use Vaping status: Never Used Substance Use Topics Alcohol use: No Drug use: Not Currently Review of Symptoms REVIEW OF SYSTEMS GENERAL: No weight loss, malaise or fevers HEENT: No changes in hearing or vision, no nose bleeds or other nasal problems NECK: Negative for lumps, goiter, pain and significant neck swelling RESPIRATORY: Negative for cough, hemoptysis, wheezing, COPD, dyspnea or shortness of breath CARDIOVASCULAR: Negative for chest pain, leg swelling, hypertension, CHF or palpitations GI: Negative for abdominal discomfort, blood in stools or black stools, change in bowel habit, heart burn, nausea, vomiting : No history of dysuria, frequency or incontinence MUSCULOSKELETAL: Negative for joint pain or swelling, back pain or muscle pain SKIN: Negative for lesions, rash, and itching PSYCH: Stable HEMATOLOGY/LYMPHOLOGY: Negative for prolonged bleeding, bruising easily or swollen nodes ENDOCRINE: Negative for cold or heat intolerance, polyuria, polydipsia and goiter NEURO: No history of headaches, syncope, paralysis, seizures or tremors EXAM: BP 110/68 (BP Site: Left Arm, BP Position: Sitting, BP Cuff Size: Regular Adult) Pulse 88 Temp 36.8 C (98.3 F) Resp 16 Ht 164 cm (5' 4.57) Wt 63.2 kg (139 lb 5.3 oz) LMP 07/15/2022 SpO2 98% BMI 23.50 kg/m General Appearance: Well appearing, alert, in no acute distress, well-hydrated, well nourished.. Skin: Skin color, texture, turgor normal, no suspicious rashes or lesions. Head: Normocephalic, no masses, lesions, tenderness or abnormalities. Eyes: Anicteric sclera. Pupils are equally round and reactive to light. Extraocular movements are intact. . Ears: External ears normal, canals clear, TMs pearly josue. Nose/Sinuses: Nares normal, septum midline, mucosa normal, no drainage or sinus tenderness. Oropharynx: Lips, mucosa, and tongue normal, teeth and gums normal, oropharynx normal. Neck: Supple, no adenopathy; thyroid symmetric, normal size, no bruits. Lungs: Lungs clear to auscultation. No wheezing, rhonchi, rales.. Heart: RRR without murmur, gallop, or rubs. No ectopy. Abdomen: Normal abdominal exam, Abdomen soft, non-tender. Bowel sounds normal. No masses, organomegaly. Extremities: No deformities, edema, skin discoloration, clubbing or cyanosis. Good capillary refill. . Peripheral Pulses: Normal. Neurologic: Gait normal. Reflexes normal and symmetric. Sensation grossly intact.. Health Maintenance List Meningococcal B Vaccine: Consider Based On Risk(2 of 2 - Risk Bexsero 2-dose series) due on 02/19/2018 GC (Gonorrhea) Screening (18-24) Never done Chlamydia Screening (18-24) Never done Cervical Cancer Screening Never done Covid-19 Vaccine(3 - 2022-24 season) due on 08/01/2023 DTaP,Tdap,Td Vaccine(7 - Td or Tdap) due on 09/07/2023 Influenza Vaccine(1) due on 08/01/2024 Hepatitis B Vaccine Completed HPV Vaccine Completed Hepatitis C Screening Completed HIV Screening Completed Data reviewed Latest Ref Rng 03/10/2024 Protein, Total 6.3 - 8.0 g/dL 7.4 Albumin 3.9 - 4.9 g/dL 4.6 Calcium 8.5 - 10.2 mg/dL 9.6 Bilirubin, Total 0.2 - 1.3 mg/dL 0.4 Alkaline Phosphatase 34 - 123 U/L 46 AST 13 - 35 U/L 17 ALT 7 - 38 U/L 9 Glucose 74 - 99 mg/dL 86 BUN 7 - 21 mg/dL 12 Creatinine 0.58 - 0.96 mg/dL 0.73 Sodium 136 - 144 mmol/L 140 Potassium 3.7 - 5.1 mmol/L 4.0 Chloride 97 - 105 mmol/L 103 CO2 22 - 30 mmol/L 25 Anion Gap 9 - 18 mmol/L 12 eGFR >=60 mL/min/1.73m 119 Total Cholesterol, Nonfasting <200 mg/dL 207 (H) Triglycerides, Nonfasting <150 mg/dL 33 HDL Cholesterol, Nonfasting >39 mg/dL 99 LDL Cholesterol, Nonfasting <100 mg/dL 101 (H) Non HDL Cholesterol, Nonfasting <130 mg/dL 108 VLDL Cholesterol, Nonfasting <30 mg/dL 7 Total Chol/HDL Ratio, Nonfasting <5.10 mg/dL 2.09 LDL/HDL Ratio, Nonfasting <2.54 mg/dL 1.02 Hemoglobin A1C 4.3 - 5.6 % 5.1 Estimated Average Glucose mg/dL 100 ASSESSMENT/PLAN: 1. Well adult exam - ICD9: V70.0, ICD10: Z00.00 (primary diagnosis) - Counseled on healthy diet and regular exercise - Follow up for annual exam in one year 2. Migraine with aura and without status migrainosus, not intractable - ICD9: 346.00, ICD10: G43.109 stable 3. Anxiety and depression - ICD9: 300.00, 311, ICD10: F41.9, F32.A Improved. Continue current management 4. Bipolar affective disorder, currently manic, mild (HCC) - ICD9: 296.41, ICD10: F31.11 Stable. Cont current management. Christiana Briones PA-C documented in this encounterC[facility]08-08-2024 History of Present illness Narrative* Tara Ramon LPN - 07/08/2024 2:35 PM EDT Scan on 07/08/2024 1:22 PM by ProviderMateus PA-C: Consultation - Emergency Medicine documented in this encounterCleveland Clinic [facility]04-11-2024 Miscellaneous Notes* Telephone Encounter - Marina Larios LPN - 03/11/2024 8:29 AM EDT Pt notified of lab results, pt voiced understanding. Marina Larios LPN * Telephone Encounter - Christiana Briones PA-C - 03/11/2024 7:35 AM EDT Labs are all normal. Christiana Briones PA-C documented in this encounterCleveland Clinic [facility]04-09-2024 Instructions* Patient Instructions* Christiana Briones PA-C - 03/09/2024 10:13 AM EDT Please set up physical for after September 19. Return sooner as needed. documented in this encounterC[facility]04-09-2024 History of Present illness Narrative* Christiana Briones PA-C - 03/09/2024 10:02 AM EDT Chief Complaint Patient presents with: Medication Follow-up HPI Jillkaylen Soria is a 23 year old female who presents here today for med check. Patient was previously seeing psych. However she no longer plans to see them and would like us to prescribe. She has been well controlled on current dosing of medications. Would like to decrease wellbutrin more as well. No other concerns. Past medical history, appointments, medications, allergies reviewed. Previous Medical History PAST MEDICAL HISTORY Diagnosis Date Anxiety and depression 11/16/2019 Bipolar affective disorder, currently manic, mild (HCC) 11/16/2019 History of alcohol abuse 09/14/2021 Sober since 07/20/2021, attending [facility] History of methamphetamine abuse (HCC) 09/14/2021 Sober since 06/07/2021 Doing [facility] and NA Irregular menses 01/22/2018 Irritable bowel syndrome 03/29/2014 Major depressive disorder 10/19/2014 See notes from counseling Center Migraine with aura and without status migrainosus, not intractable 04/10/2017 Previous Surgical History PAST SURGICAL HISTORY Procedure Laterality Date D+C NONE Family History FAMILY HISTORY Problem Relation Age of Onset Heart Maternal Grandmother Hypertension Maternal Grandmother Ischemic Heart Disease Maternal Grandmother Breast Cancer Paternal Grandmother Breast Cancer Paternal Aunt Patient Allergies ALLERGIES Allergen Reactions Amoxicillin Rash Current Medications Current Outpatient Medications on File Prior to Visit Medication Sig FLUoxetine (PROZAC) 20 mg capsule Take 1 capsule by mouth once daily. Via Psych with [facility] No current facility-administered medications on file prior to visit. Social History Social History Tobacco Use Smoking status: Former Packs/day: .5 Types: Cigarettes Quit date: 05/19/2022 Years since quittin.8 Smokeless tobacco: Never Tobacco comments: 12/04-12/02 ppd Vaping Use Vaping Use: Never used Substance Use Topics Alcohol use: No Drug use: Not Currently Review of Symptoms REVIEW OF SYSTEMS GENERAL: No weight loss, malaise or fevers NECK: Negative for lumps, goiter, pain and significant neck swelling RESPIRATORY: Negative for cough, hemoptysis, wheezing, COPD, dyspnea or shortness of breath CARDIOVASCULAR: Negative for chest pain, leg swelling, hypertension, CHF or palpitations NEURO: No history of headaches, syncope, paralysis, seizures or tremors EXAM: BP 118/88 (BP Site: Left Arm, BP Position: Sitting, BP Cuff Size: Regular Adult) Pulse 86 Temp 36.5 C (97.7 F) (Left Tympanic) Resp 16 Wt 69.4 kg (153 lb) LMP 07/15/2022 SpO2 98% BMI 26.71 kg/m General Appearance: Well appearing, alert, in no acute distress, well-hydrated, well nourished.. Neck: Supple, no adenopathy; thyroid symmetric, normal size, no bruits. Lungs: Lungs clear to auscultation. No wheezing, rhonchi, rales.. Heart: RRR without murmur, gallop, or rubs. No ectopy. Extremities: No deformities, edema, skin discoloration, clubbing or cyanosis. Good capillary refill. . Peripheral Pulses: Normal. Health Maintenance List Meningococcal B Vaccine: Consider Based On Risk(2 of 2 - Risk Bexsero 2-dose series) due on 02/19/2018 GC (Gonorrhea) Screening (18-24) Never done Chlamydia Screening (18-24) Never done Pap Testing Never done Covid-19 Vaccine(2022- season) due on 08/01/2023 DTaP,Tdap,Td Vaccine(7 - Td or Tdap) due on 09/07/2023 Hepatitis B Vaccine Completed HPV Vaccine Completed Influenza Vaccine Completed Hepatitis C Screening Completed HIV Screening Completed Data reviewed ASSESSMENT/PLAN: 1. Anxiety and depression - ICD9: 300.00, 311, ICD10: F41.9, F32.A (primary diagnosis) Stable. Okay for PCP to manage medications. Will decrease buproprion to 100mg SR once a day per patient preference. - FLUOXETINE 20 MG CAPSULE - COMP METABOLIC PANEL 2. Screening for diabetes mellitus - ICD9: V77.1, ICD10: Z13.1 - HGB A1C 3. Encounter for lipid screening for cardiovascular disease - ICD9: V77.91, V81.2, ICD10: Z13.220, Z13.6 - LIPID PANEL, NONFASTING Christiana Briones PA-C documented in this encounterCleveland Clinic [facility]10-20-2023 Instructions* Patient Instructions* Darling Branham APRN.CNP - 09/19/2023 2:41 PM EDT Health Promotion: - Eat healthy -- go to [email or web address] to get started - Have a yearly physical - Mammogram yearly after age 40 - Get at least 30 minutes of physical activity daily - Get at least 7 to 8 hours of sleep each night - Reach and maintain a healthy weight - Get help to quit or don't start smoking - Limit alcohol use to one drink or less - Do not use illegal drugs or misuse prescription drugs - Wear a helmet when riding a bike and wear protective gear for sports - Wear a seatbelt in cars and not text and drive - Wear sunscreen documented in this encounterC[facility]10-20-2023 History of Present illness Narrative* Darling Branham APRN.CNP - 09/19/2023 2:25 PM EDT This is a 23 year old female who presents today with: Patient presents with: Yearly Exam: Physical HISTORY OF PRESENT ILLNESS: Jill Soria is a 23 year old female. Patient presents with: Yearly Exam: Physical Pt presents today for wellness physical for [facility]. Denies any problems/concerns. REVIEW OF SYSTEMS GENERAL: No weight loss, malaise or fevers/chills, or fatigue. HEENT: Negative for frequent or significant headaches, No changes in hearing or vision. NECK: Negative for lumps, goiter, pain and significant neck swelling RESPIRATORY: Negative for cough, hemoptysis, wheezing, dyspnea or shortness of breath CARDIOVASCULAR: Negative for chest pain, leg swelling, orthopnea, or palpitations GI: No nausea, vomiting, or diarrhea/constipation. No hematochezia/melena. No heartburn or reflux symptoms. : No history of dysuria, frequency or incontinence MUSCULOSKELETAL: Negative for joint pain or swelling. Left knee had episode of locking - lasted several minutes. Hasn't had any episodes since. She had this happen several times when she was a child. SKIN: Negative for lesions, rash, and itching ENDOCRINE: Negative for cold or heat intolerance, polyuria, polydipsia and goiter NEURO: No history of headaches, syncope, paralysis, seizures or tremors PAST MEDICAL HISTORY: PAST MEDICAL HISTORY Diagnosis Date Anxiety and depression 11/16/2019 Bipolar affective disorder, currently manic, mild ([facility]) 11/16/2019 History of alcohol abuse 09/14/2021 Sober since 07/20/2021, attending [facility] History of methamphetamine abuse ([facility]) 09/14/2021 Sober since 06/07/2021 Doing [facility] and NA Irregular menses 01/22/2018 Irritable bowel syndrome 03/29/2014 Major depressive disorder 10/19/2014 See notes from counseling Center Migraine with aura and without status migrainosus, not intractable 04/10/2017 PAST SURGICAL HISTORY Procedure Laterality Date D+C NONE ALLERGIES Amoxicillin MEDICATIONS Current Outpatient Medications Medication Sig FLUoxetine (PROZAC) 20 mg capsule Take 1 capsule by mouth once daily. Via Psych with [facility] buPROPion XL (WELLBUTRIN XL) 300 mg 24 hr tablet Take 1 tablet by mouth once daily. Via Psych with [facility] No current facility-administered medications for this visit. FAMILY HISTORY Problem Relation Age of Onset Heart Maternal Grandmother Hypertension Maternal Grandmother Ischemic Heart Disease Maternal Grandmother Breast Cancer Paternal Grandmother Breast Cancer Paternal Aunt Social History Tobacco Use Smoking status: Former Packs/day: .5 Types: Cigarettes Quit date: 05/19/2022 Years since quittin.3 Smokeless tobacco: Never Tobacco comments: 12/04-12/02 ppd Vaping Use Vaping Use: Never used Substance Use Topics Alcohol use: No Drug use: Not Currently EXAM: BP 110/62 Pulse 72 Resp 16 Wt 63.2 kg (139 lb 6.4 oz) LMP 07/20/2022 (Approximate) SpO2 97% BMI 24.33 kg/m PHYSICAL EXAM: General Appearance: Well appearing, alert, in no acute distress, well-hydrated, well nourished.. Skin: Skin color, texture, turgor normal, no suspicious rashes or lesions. Head: Normocephalic, no masses, lesions, tenderness or abnormalities. Eyes: Anicteric sclera. Pupils are equally round and reactive to light. Extraocular movements are intact. Ears: External ears normal, canals clear. Right ear canal slightly red -- reports wears ear bud. Oropharynx: Lips, mucosa, and tongue normal, teeth and gums normal, oropharynx normal. Neck: Supple, no adenopathy; thyroid symmetric, normal size, no bruits. Lungs: Lungs clear to auscultation. No wheezing, rhonchi, rales.. Heart: RRR without murmur, gallop, or rubs. No ectopy. Abdomen: Normal abdominal exam, Abdomen soft, non-tender. Bowel sounds normal. No masses, organomegaly. Extremities: No deformities, edema, skin discoloration, clubbing or cyanosis. Good capillary refill. . Neurologic: Gait normal. Reflexes normal and symmetric. Sensation grossly intact.. ASSESSMENT/PLAN: 1. Wellness examination - ICD9: V70.0, ICD10: Z00.00 Healthy exam. Form complete. - Counseled on healthy diet and regular exercise - Follow up for annual exam in one year Health Promotion: - Eat healthy -- go to [email or web address] to get started - Have a yearly physical - Mammogram yearly after age 40 - Get at least 30 minutes of physical activity daily - Get at least 7 to 8 hours of sleep each night - Reach and maintain a healthy weight - Get help to quit or don't start smoking - Limit alcohol use to one drink or less - Do not use illegal drugs or misuse prescription drugs - Wear a helmet when riding a bike and wear protective gear for sports - Wear a seatbelt in cars and not text and drive - Wear sunscreen Discussed treatment plan and patient voices understanding. Patient's questions answered appropriately. Medications and potential side effects were discussed and patient voices understanding. Return to the office as scheduled or as needed for worsening/no improvement. Darling Branham APRN.VITO documented in this encounterCleveland Clinic [facility]10-05-2022 Miscellaneous Notes* Telephone Encounter - Suzi De La Rosa Ma - 09/04/2022 9:27 AM EDT Most recent OV notes, consult and demographics faxed to [facility] at [phone]. Pt notified that if she does not hear from them to contact to schedule, but her referral paperwork was sent over. Suzi De La Rosa Ma * Telephone Encounter - Christiana Briones PA-C - 09/04/2022 8:59 AM EDT Please send consult to joann [place]. Thanks. Christiana Briones PA-C documented in [facility] encounterC[facility] History of Present illness Narrative* Christiana Briones PA-C - 08/13/2022 1:21 PM EDT Chief Complaint Patient presents with: Hearing Problem: Patient thinks maybe wax build up bilateral ears HPI Jill Soria is a 22 year old female who presents here today for Above Complaints.. Patient reports some trouble hearing and rattling in her ears for the past couple weeks. No pain. No itching No d/c. Past medical history, appointments, medications, allergies reviewed. Previous Medical History PAST MEDICAL HISTORY Diagnosis Date Anxiety and depression 11/16/2019 Bipolar affective disorder, currently manic, mild (HCC) 11/16/2019 History of alcohol abuse 09/14/2021 Sober since 07/20/2021, attending [facility] History of methamphetamine abuse (HCC) 09/14/2021 Sober since 06/07/2021 Doing [facility] and NA Irregular menses 01/22/2018 Irritable bowel syndrome 03/29/2014 Major depressive disorder 10/19/2014 See notes from counseling Center Migraine with aura and without status migrainosus, not intractable 04/10/2017 Previous Surgical History PAST SURGICAL HISTORY Procedure Laterality Date D+C NONE Family History FAMILY HISTORY Problem Relation Age of Onset Heart Maternal Grandmother Hypertension Maternal Grandmother Ischemic Heart Disease Maternal Grandmother Breast Cancer Paternal Grandmother Breast Cancer Paternal Aunt Patient Allergies ALLERGIES Allergen Reactions Amoxicillin Rash Current Medications Current Outpatient Medications on File Prior to Visit Medication Sig FLUoxetine (PROZAC) 20 mg capsule Take 1 capsule by mouth once daily. Via Psych with [facility] buPROPion XL (WELLBUTRIN XL) 300 mg 24 hr tablet Take 1 tablet by mouth once daily. Via [facility] with [facility] No current facility-administered medications on file prior to visit. Social History Social History Tobacco Use Smoking status: Former Packs/day: 0.50 Types: Cigarettes Quit date: 05/19/2022 Years since quittin.2 Smokeless tobacco: Never Tobacco comments: 12/04-12/02 ppd Vaping Use Vaping Use: Never used Substance Use Topics Alcohol use: No Drug use: Not Currently Review of Symptoms REVIEW OF SYSTEMS See hpi EXAM: BP 96/70 (BP Site: Right Arm, BP Position: Sitting, BP Cuff Size: Regular Adult) Pulse 68 Temp 37.2 C (99 F) Resp 16 Wt 66.2 kg (146 lb) LMP 07/20/2022 (Approximate) BMI 25.49 kg/m General Appearance: Well appearing, alert, in no acute distress, well-hydrated, well nourished.. Head: Normocephalic, no masses, lesions, tenderness or abnormalities. Eyes: Anicteric sclera. Pupils are equally round and reactive to light. Extraocular movements are intact. . Ears: External ears normal, canals clear. TMs pearly josue Nose/Sinuses: Nares normal, septum midline, mucosa normal, no drainage or sinus tenderness. Oropharynx: Lips, mucosa, and tongue normal, teeth and gums normal, oropharynx normal. Health Maintenance List COVID-19 VACCINE(1) Never done PNEUMOCOCCAL(1 - PPSV23 or PCV20) due on 01/29/2007 MENINGOCOCCAL B: Consider based on risk(2 of 2 - Risk Bexsero 2-dose series) due on 02/19/2018 GC (GONORRHEA) SCREENING (18-24) Never done CHLAMYDIA SCREENING (18-24) Never done PAP TESTING Never done INFLUENZA(1) due on 08/01/2022 DTAP,TDAP,TD(7 - Td or Tdap) due on 09/07/2023 HEPATITIS B Completed HPV VACCINE Completed HEPATITIS C SCREENING Completed HIV SCREENING Completed DEPRESSION SCREENING Discontinued Data reviewed ASSESSMENT/PLAN: 1. Eustachian tube dysfunction, bilateral - ICD9: 381.81, ICD10: H69.83 Given symptoms, suspect possible eustachian tube dysfunction. Will have her try flonase x2 weeks and let me know if not improving. At that time would consult ENT. Christiana Briones PA-C documented in this encounterC[facility] Miscellaneous Notes* Telephone Encounter - Bibiana Orlando Cma - 05/08/2022 11:50 AM EDT When You Wisht message sent to patient Bibianashiloh Potternasreen Jackson * Telephone Encounter - Christiana Briones PA-C - 05/08/2022 11:44 AM EDT Labs look okay. Hep c still in process. Will call if abnormal. hiv was negative. documented in this encounterC[facility]04[facility] History of Past illness Narrative* Problem Noted Date Resolved Date Irritable bowel syndrome 03/29/2014 017 documented as of this encounter (statuses as of 05/08/2022) [facility] of Past illness Narrative* Problem Noted Date Resolved Date Irritable bowel syndrome 03/29/2014 017 documented as of this encounter (statuses as of 08/13/2022) [facility] of Past illness Narrative* Problem Noted Date Resolved Date Irritable bowel syndrome 03/29/2014 017 documented as of this encounter (statuses as of 09/04/2022) [address]29-2014 History of Past illness Narrative* Problem Noted Date Diagnosed Date Resolved Date Irritable bowel syndrome 03/29/201410/2017 documented as of this encounter (statuses as of 09/19/2023) [place] [address]-29-2014 History of Past illness Narrative* Problem Noted Date Diagnosed Date Resolved Date Irritable bowel syndrome 03/29/201410/2017 documented as of this encounter (statuses as of 03/09/2024) [place] [address]2014 History of Past illness Narrative* Problem Noted Date Diagnosed Date Resolved Date Irritable bowel syndrome 03/29/201410/2017 documented as of this encounter (statuses as of 03/11/2024) [facility] + Plan note No data available for this section [facility] Evaluation note* Diagnosis Eustachian tube dysfunction, bilateral- Primary documented in this encounter [facility] note* Diagnosis Eustachian tube dysfunction, bilateral- Primary Otalgia, bilateral documented in this encounter [facility] noteNo assessment information availableWHighland District [facility] Work Phone: Evaluation note* Diagnosis Wellness examination- Primary documented in this encounter [facility] note* Diagnosis Anxiety and depression- Primary Dysthymic disorder Screening for diabetes mellitus Encounter for lipid screening for cardiovascular disease Screening for lipoid disorders documented in this encounter [facility] note* Diagnosis Well adult exam- Primary Routine general medical examination at a health care facility Migraine with aura and without status migrainosus, not intractable Migraine with aura, without mention of intractable migraine without mention of status migrainosus Anxiety and depression Dysthymic disorder Bipolar affective disorder, currently manic, mild (HCC) Bipolar I disorder, most recent episode (or current) manic, mild documented [facility] encounter [facility]* Diagnosis Hirsutism- Primary Anxiety and depression Dysthymic disorder documented in this encounter [facility] note* Diagnosis Anxiety and depression- Primary Dysthymic disorder Smoker Tobacco use disorder Bipolar affective disorder, currently manic, mild (HCC) Bipolar I disorder, most recent episode (or current) manic, mild documented [facility] this encounter [facility]* Diagnosis Hirsutism- Primary documented in this encounter [facility] Reason for Referral Specialty Diagnoses / Procedures Referred By Pauly cueva Referred To Contact Ent - Otolaryngology Diagnoses Eustachian tube dysfunction, bilateral Otalgia, bilateral Procedures CONSULT TO ENT OFFICE/OUTPATIENT NEW HIGH MDM 60-74 MINUTES Christiana Briones PA-C [address] [place] [address] Referral ID Status Reason Start Date Expiration Date Visits Requested Visits Authorized [id number] Authorized PCP Requested Referral 09/04/2022 09/04/2023 1 1 Family History No Family History Records Found Relationship Condition Age at Onset Recorded Date/T portia Not Specified Disorder of thyroid Unknown father Cardiac disease Unknown aunt Malignant neoplasm Unknown Advance Directives No Advanced Directives Records Found Advance Directive Response Recorded Date/ Time Living Will No June 11, 2021 11:07am Power of Beef Cattle Farmer No June 11 11:07am Advance Directive Response Recorded Date/ Time Living Will No November 19, 023 8:26am Power of Beef Cattle Farmer No November 19, 2023 8:26am Chief Complaint and Reason for Visit Chief Complaint THUMB LAC Summary Purpose Additional Source Comments Source Comments (unrecognize d section and content) In the event this informatio n is protected by the Federal Confidentiality of Alcohol and Drug Abuse Patient Records regulations: The Federal rules restrict any use of the information to criminally investigate or prosecute any alcohol or drug abuse patient.[facility] Hospital[facility] the event this information is protected by the Federal Confidentiality of Alcohol and Drug Abuse Patient Records regulations: The Federal rules restrict any use of the information to criminally investigate or prosecute any alcohol or drug abuse patient.[facility] HospitalIn the event this information is protected by the Federal Confidentiality of Alcohol and Drug Abuse Patient Records regulations: The Federal rules restrict any use of the information to criminally investigate or prosecute any alcohol or drug abuse patient.[facility] HospitalIn the event this information is protected by the Federal Confidentiality of Alcohol and Drug Abuse Patient Records regulations: The Federal rules restrict any use of the information to criminally investigate or prosecute any alcohol or drug abuse patient.[facility] HospitalIn the event this information is protected by the Federal Confidentiality of Alcohol and Drug Abuse Patient Records regulations: The Federal rules restrict any use of the information to criminally investigate or prosecute any alcohol or drug abuse patient.[facility] HospitalIn the event this information is protected by the Federal Confidentiality of Alcohol and Drug Abuse Patient Records regulations: The Federal rules restrict any use of the information to criminally investigate or prosecute any alcohol or drug abuse patient.[facility] HospitalIn the event this information is protected by the Federal Confidentiality of Alcohol and Drug Abuse Patient Records regulations: The Federal rules restrict any use of the information to criminally investigate or prosecute any alcohol or drug abuse patient.[facility] HospitalIn the event this information is protected by the Federal Confidentiality of Alcohol and Drug Abuse Patient Records regulations: The Federal rules restrict any use of the information to criminally investigate or prosecute any alcohol or drug abuse patient.[facility] HospitalIn the event this information is protected by the Federal Confidentiality of Alcohol and Drug Abuse Patient Records regulations: The Federal rules restrict any use of the information to criminally investigate or prosecute any alcohol or drug abuse patient.[facility] HospitalIn the event this information is protected by the Federal Confidentiality of Alcohol and Drug Abuse Patient Records regulations: The Federal rules restrict any use of the information to criminally investigate or prosecute any alcohol or drug abuse patient.[facility] HospitalIn the event this information is protected by the Federal Confidentiality of Alcohol and Drug Abuse Patient Records regulations: The Federal rules restrict any use of the information to criminally investigate or prosecute any alcohol or drug abuse patient.[facility] HospitalIn the event this information is protected by the Federal Confidentiality of Alcohol and Drug Abuse Patient Records regulations: The Federal rules restrict any use of the information to criminally investigate or prosecute any alcohol or drug abuse patient.[facility] HospitalIn the event this information is protected by the Federal Confidentiality of Alcohol and Drug Abuse Patient Records regulations: The Federal rules restrict any use of the information to criminally investigate or prosecute any alcohol or drug abuse patient.[facility] HospitalIn the event this information is protected by the Federal Confidentiality of Alcohol and Drug Abuse Patient Records regulations: The Federal rules restrict any use of the information to criminally investigate or prosecute any alcohol or drug abuse patient.[facility] Reason for Visit (unrecogniz ed section and content) Reason Comments Results Reason Comments Hearing Problem Patient thinks maybe wax build up bilateral ears Reason Comments Yearly Exam Physical Reason Comments Medication Follow-up Reason Comments Insurance Physical Reason Comments Outside [id number] Ordered Reason Comments Discussion Questions about well butrin; recently decreased dosage Reason Comments Rx Refills Reason Comments Follow Up Care Teams (unrecognized sec tion and content) Marketing Director Relationship Specialty Start Date End Date Delfino Vallejo MD [address] [place], [place] [id number] PCP - General Family Practice 09/14/21 Marketing Director Relationship Specialty Start Date End Date Delfino Vallejo MD [address] [place], [place] [id number] PCP - General Family Medicine 09/14/21 Team Status: Active Member Role Status Dates Dr. Kris Lo III, MD Family Provider Active No Primary Care Physician Primary Care Provider Active Team Status: Active Member Role Status Dates Employee Health Attending Provider Active Team Status: Inactive Member Role Status Dates No Primary Care Physician Primary Care Provider Active [employer] [place] Attending Provider Active Marketing Director Relationship Specialty Start Date End Date Delfino Vallejo MD [address] [place] [address] PCP - General Family Medicine 09/14/21 Team Status: Active Member Role Status Dates Dr. Kris Lo III, MD Family Provider Active Dr. Delfino Vallejo MD Primary Care Provider Active Team Status: Inactive Member Role Status Dates Dr. Delfino Vallejo MD Primary Care Provider Active Dr. Jean Al DO Emergency Provider Active Marketing Director Relationship Specialty Start Date End Date Delfino Vallejo MD [address] [place] [address] PCP - General Family Medicine 09/14/21 Marketing Director Relationship Specialty Start Date End Date Delfino Vallejo MD [address] [place] [address] PCP - General Family Medicine 09/14/21 Marketing Director Relationship Specialty Start Date End Date Delfino Vallejo MD [address] [place] [address] PCP - General Family Medicine 09/14/21 Marketing Director Relationship Specialty Start Date End Date Delfino Vallejo MD [address] [place] [address] PCP - General Family Medicine 09/14/21 Marketing Director Relationship Specialty Start Date End Date Delfino Vallejo MD [address] [place] [address] PCP - General Family Medicine 09/14/21 Marketing Director Relationship Specialty Start Date End Date Delfino Vallejo MD [address] [place] [address] PCP - General Family Medicine 09/14/21 Marisa Griffin APRN.VITO [address] [place] [address] Dry Dip Worker Family Medicine 11/06/24 Christiana Briones PA-C [address] [place] [address] Dry Dip Worker Family [facility] 11/06/24 Marketing Director Relationship Specialty Start Date End Date Delfino Vallejo MD [address] [place] [address] PCP - General Family Medicine 09/14/21 Marisa Griffin, MUSA.HOT DIP PLATING SUPERVISOR [address] [place] [address] Dry Dip Worker Family Medicine 11/06/24 Christiana Briones PA-C [address] [place] [address] [facility] 11/06/24 Marketing Director Relationship Specialty Start Date End Date Delfino Vallejo MD [address] [place] [address] PCP - General Family Medicine 09/14/21 Marisa Griffin, WAX CUTTER.HOT DIP PLATING SUPERVISOR [address] [place] [address] Dry Dip Worker Family Medicine 11/06/24 Christiana Briones PA-C [address] [place] [address] Dry Dip Worker Family Medicine 11/06/24 Marketing Director Relationship Specialty Start Date End Date Delfino Vallejo MD [address] [place] [address] PCP - General Family Medicine 09/14/21 Marisa Griffin, WAX CUTTER.HOT DIP PLATING SUPERVISOR [address] [place] [address] Dry Dip Worker Family Medicine 05/02/25 Christiana Briones PA-C [address] [facility] [place] [address] Dry Dip Worker Family Medicine 05/02/25 Goals (unrecognized section and content) Goals may be documented in a n alternate sectionGoals may be documented in an alternate section No data available for this section INFORMATION SOURCE (unrecogn ized section and content) DATE CREATED AUTHOR 03/26/2025 [facility] DATE CREATED AUTHOR AUTHOR'S ORGANIZ ATION 09/22/2025 [facility] DATE CREATED AUTHOR AUTHOR'S ORGANIZ ATION 09/23/2025 [facility] FOR RECORDS PERTAINING TO PATIENTS WHO ARE OR HAVE BEEN ENROLLED IN A CHEMICAL DEPENDENCY/SUBSTANCEABUSE PROGRAM, SOME INFORMATION MAY BE OMITTED. This clinical summary was aggregated from multiple sources. Caution should be exercised in using it in the provision of clinical care. This summary normalizes information from multiple sources, and as a consequence, information in this document may materially change the coding, format and clinical context of patient data. In addition, data may be omitted in some cases. CLINICAL DECISIONS SHOULD BE BASED ON THE PRIMARY CLINICAL RECORDS. [employer] provides no warranty or guarantee of the accuracy or completeness of information in this document.
[2025-10-24 02:50] LABS: Hematocrit 40.5 % (37-47); Hemoglobin 13.8 g/dL (12.0-15.0); Immature Granulocytes Count 0.020 X10^3/uL (0.0-0.0); Mean Corp Hgb Conc 34.1 g/dL (32-36); Mean Corpuscular Volume 89.2 fL (81-99); Mean Platelet Vol. 9.0 fl (6.2-12.0); NRBC Flagged by Analyzer 0 % (0-5); Platelet Count 285 K/mm3 (150-450); RBC Distribution Width CV 12.8 % (11.6-14.6); RBC Distribution Width SD 42.3 fl (35.1-43.9); Red Blood Count 4.54 M/mm3 (4.2-5.4); White Blood Count 5.1 K/mm3 (4.4-11.0)
[2025-10-24] MEDS: Pantoprazole Sodium 40 MG in 0.9% Normal Saline (100mL MB+) 100 ML 300 MG IV (02:52)
[2025-10-24] MEDS: 0.9% Normal Saline (1000mL) 1,000 ML 999 ML IV (02:53)
[2025-10-24 02:55] VITALS: BP 104/72; PULSE 75; RESP 16; O2SAT 100
--- NOTE | 2025-10-24 03:06 | ED.RN ---
This RN went into the patient's room to complete an assessment on the patient. The patient denies any suicidal ideation, states that she made a mistake and has been sober for the past [address] Haley states that the patient does not need a sitter at this time.
[2025-10-24 03:19] LABS: Barbiturate Urine NEGATIVE (< 200 ng/mL); Benzodiazepine Urine NEGATIVE (< 200 ng/mL); PCP Urine NEGATIVE (< 25 ng/mL); THC Urine NEGATIVE (< 50 ng/mL)
[2025-10-24 03:20] LABS: AST(SGOT) 19 U/L (<=31); Acetaminophen (Tylenol) Level 7.2 ug/mL (8.0-19.0); Alanine Aminotransfer ALT/SGPT 18 U/L (<=34); Albumin, Serum 4.7 g/dL (3.5-5.0); Alcohol, Blood (Medical)-Serum 163.0 mg/dL (<=10.0); Alkaline Phosphatase 49 U/L (35-104); Anion Gap 16 (5-15); BUN 5 mg/dL (4-19); BUN/Creat Ratio 6.4 RATIO (10-20); Calcium,Total 9.2 mg/dL (7.6-11.0); Carbon Dioxide 21.4 mmol/L (21.0-32.0); Chloride 101 mmol/L (98-108); Estimated Creatinine Clearance 101.66 ml/min (50-250); Globulin 2.6 g/dL (2.2-4.2); Glucose 102 mg/dL (70-99); Potassium 3.4 mmol/L (3.3-5.1); Salicylate < 0.5 mg/dL (2.8-20.0)
[2025-10-24 03:23] LABS: Internal QC Validated? YES +Cl - CLEAR BKGD; Pregnancy, Serum, hCG Quali. NEGATIVE Negative
[2025-10-24 03:24] LABS: Record Kit Lot#, Serum Preg. 0000980607
--- NOTE | 2025-10-24 03:25 | EX.ED.DYSGE1 ---
HPI History of Present Illness Chief Complaint: Suicidal Informant: patient and spouse/S.O. Narrative Narrative: Patient is a 25-year-old female with past medical history of anxiety depression and bipolar disorder. She also has a past history of alcohol abuse and polysubstance use. According to the he came home this evening and the patient was noted to be intoxicated and drinking. With her previous history of alcohol abuse there ensued a verbal argument. During this time the patient stated that she would be better off and that she should just go ahead and kill herself. states that she has attempted to harm herself in the past and has had required psychiatric placement. Therefore with her threats of harming herself and past medical history and the fact that he does not know what precipitated her to drink after being sober for quite some time he felt that evaluation in the ER was her safest option and she was brought in for evaluation. Patient does admit to drinking earlier today. She also does admit to verbalizing thoughts of self-harm. However at this time she states she is not homicidal or suicidal. [facility] Medical History Bipolar disorder Alcohol abuse Anxiety Depression Substance abuse Migraines Home Medications ?Medication ?Instructions ?Recorded ?Last Taken ?Type bupropion HCl 150 mg 24 hr tablet, 150 mg PO DAILY 11/19/23 11/19/23 History extended release bupropion HCl 100 mg tablet,12 hr 100 mg PO DAILY 10/24/25 Unknown History sustained-release fluoxetine 40 mg capsule 40 mg PO DAILY 10/24/25 Unknown History Allergy/AdvReac Type Severity Reaction Status Date / Time amoxicillin Allergy Hives Verified 10/24/25 02:10 Family History Father Heart disease Aunt Cancer Other Thyroid disorder Social History Smoking Status: Current every day smoker tobacco type: cigarettes alcohol intake: current alcohol intake frequency: 0-2 drinks per day Alcohol type: beer substance use type: methamphetamine ROS ROS ED Constitutional Constitutional ED: Denies chills or fever(s) ENT ENT ED: Denies sore throat Cardiovascular Cardiovascular: Denies chest pain Respiratory/Chest Respiratory/Chest: Denies cough or dyspnea Gastrointestinal Gastrointestinal: Reports nausea and vomiting; Denies abdominal pain or diarrhea Genitourinary Genitourinary ED: Denies dysuria Musculoskeletal Musculoskeletal: Denies myalgias Integumentary Denies rash Neurologic Neurologic: Denies headache(s) Psychiatric Psychiatric: Denies suicidal ideation or suicidal thoughts Hematologic/Lymphatic Hematologic/Lymphatic: Denies easy bleeding or easy bruising EXAM Physical Exam Const Vital Signs: 10/24/25 02:01 10/24/25 02:55 10/24/25 04:00 Temperature 97.5 F L Temperature Source Oral Pulse Rate 79 75 82 Respiratory Rate 16 16 16 Blood Pressure 101/69 104/72 106/64 Blood Pressure Mean 79 82 78 Pulse Ox 100 100 99 Oxygen Delivery Method Room Air Room Air Room Air 10/24/25 05:00 10/24/25 06:00 Temperature Temperature Source Pulse Rate 83 70 Respiratory Rate 16 16 Blood Pressure 104/78 123/59 H Blood Pressure Mean 86 80 Pulse Ox 98 97 Oxygen Delivery Method Room Air Room Air Positive well nourished and well developed General Appearance ED: well developed; Negative for pallor HEENT HEENT Narrative: Normocephalic atraumatic Eyes EOMs intact bilaterally Eyes Narrative: Pupils are dilated and slight sluggish to respond to light consistent with alcohol intoxication/use There is mild scleral injection consistent with alcohol use as well General Eye ED: Negative for scleral icterus Neck supple Neck Narrative: No nuchal rigidity or meningeal signs Resp normal respiratory effort and clear to auscultation bilaterally Cardio regular rate and regular rhythm Rate: other Other Details: Radial and carotid pulses are equal and symmetric GI non-tender, non-distended and no masses GI Narrative: Soft nontender nondistended with hyperactive bowel sounds No voluntary guarding no rigidity or pulsatile mass No peritoneal signs Auscultation: hyperactive bowel sounds Palpation: soft Extremity normal to inspection Neuro oriented x3, CN's II-XII intact bilaterally and no sensory deficits noted Sensorium / Orientation: alert Motor Exam: strength 5/5 throughout Psych Psych Narrative: Patient has a depressed/flat affect and also display signs consistent with intoxication Skin no rashes or lesions noted Skin Narrative: Previous scars noted to bilateral forearms consistent with history of cutting no active cuts noted or signs of secondary infection General Skin Exam: Negative for jaundice or pallor MDM MDM MDM Narrative Medical decision making narrative: Patient arrived to the ER with stable vitals. She appeared visibly intoxicated and this correlates with her history. According to the significant other and the patient she did admit to stating thoughts or intent of self-harm while she was arguing with the significant other and intoxicated but does not have those thoughts/ideations at this time. However as she does have a past history of suicide ideation and need for psychiatric admission I do feel that further workup in the ER with evaluation by psychiatry/crisis center is the most appropriate option. Secondary to this basic labs and a urine tox cream were obtained. Patient is positive for alcohol intoxication but otherwise has normal labs and this correlates with her reported history. She was watched in the ER and her alcohol level was rechecked and she is now medically sober as the level is under 100. Secondary to this she has been medically cleared and is appropriate for evaluation by crisis center. I once again spoke with the patient now that she is medically sober and she still admits to seeing statements of self-harm while intoxicated at home but has no thoughts of that at this time. After patient was abated by crisis center they agree that she would benefit from outpatient therapy but there is no need for emergent inpatient placement and therefore the patient will be discharged home in the care of her significant other. History & Record Review Discussion w/independent historian: Patient and Significant other Lab Data Attestation: I reviewed the patient's lab results. Labs: Laboratory Results - last 24 hr 10/24/25 10/24/25 10/24/25 02:19 02:27 06:01 WBC 5.1 RBC 4.54 Hgb 13.8 Hct 40.5 MCV 89.2 MCH 30.4 MCHC 34.1 RDW Std Deviation 42.3 RDW Coeff of Liliana 12.8 Plt Count 285 MPV 9.0 Immature Gran % (Auto) 0.400 Neut % (Auto) 50.4 Lymph % (Auto) 38.2 [place] % (Auto) 7.6 Eos % (Auto) 1.8 Baso % (Auto) 1.6 H Absolute Neuts (auto) 2.6 Absolute Lymphs (auto) 1.95 Nucleated RBC % 0 Sodium 138 Potassium 3.4 Chloride 101 Carbon Dioxide 21.4 Anion Gap 16 H BUN 5 Creatinine 0.77 Estim Creat Clear Calc 101.66 Est GFR (MDRD) Non-Af 111 BUN/Creatinine Ratio 6.4 L Glucose 102 H Calcium 9.2 Total Bilirubin 0.46 AST 19 ALT 18 Alkaline Phosphatase 49 Total Protein 7.3 Albumin 4.7 Globulin 2.6 Albumin/Globulin Ratio 1.8 Serum , Qual NEGATIVE Salicylates < 0.5 L Urine Opiates Screen NEGATIVE U Buprenorphine Qual NEGATIVE Ur Oxycodone Screen NEGATIVE Urine Methadone Screen NEGATIVE Urine Fentanyl Screen NEGATIVE Acetaminophen 7.2 L Ur Barbiturates Screen NEGATIVE Ur Phencyclidine Scrn NEGATIVE Ur Amphetamines Screen NEGATIVE U Benzodiazepines Scrn NEGATIVE Urine Cocaine Screen NEGATIVE U Cannabinoids Screen NEGATIVE Ethyl Alcohol 163.0 H 94.9 H Management Discussion w/another healthcare provider: Behavioral health Discharge Plan Triage Chief Complaint: Suicidal ED Provider: Jerome Haley Dx/Rx/DC Orders Clinical Impression: Alcohol intoxication, Depression with suicidal ideation, Bipolar disorder Instructions: Depression: Tips to Help Yourself, CONTRACT, No Harm, ED Alcohol Intoxication Prescriptions: No Action bupropion HCl 150 mg tablet extended release 24 hr 150 mg PO DAILY fluoxetine 40 mg capsule 40 mg PO DAILY bupropion HCl 100 mg tablet sustained-release 12 hr 100 mg PO DAILY Primary Care Provider: Delfino Vallejo Referrals: Delfino Vallejo MD [Primary Care Provider, Family Practice] Activity Restrictions/Additional Instructions: Please follow-up with psychiatry as recommended by crisis center and return to the ER should you have any further concerns or worsening of symptoms Print Language: Citizen Of [place] Disposition Disposition: Home, Self Care
[2025-10-24 04:00] VITALS: BP 106/64; PULSE 82; RESP 16; O2SAT 99
[2025-10-24 05:00] VITALS: BP 104/78; PULSE 83; RESP 16; O2SAT 98
[2025-10-24 06:00] VITALS: BP 123/59; PULSE 70; RESP 16; O2SAT 97
--- NOTE | 2025-10-24 06:17 | PCA ---
CRISIS WAS CALLED AND CHART FAXED, REDRAW WILL BE FAXED SOON RESULTED.
[2025-10-24 06:57] LABS: Alcohol, Blood (Medical)-Serum 94.9 mg/dL (<=10.0)
[2025-10-24 08:55] VITALS: BP 117/65; PULSE 102; RESP 18; TEMP 36.7; O2SAT 98
== END 2025-10-24 08:57 | disposition home or self-care (01) ==
PROVIDERS: Emergency Provider Emergency Medicine; PCP Family Medicine; Visit Provider Emergency Medicine
DX: F10.129 Alcohol abuse with intoxication, unspecified (principal); F31.9 Bipolar disorder, unspecified; R45.851 Suicidal ideations; Z79.899 Other long term (current) drug therapy; F17.210 Nicotine dependence, cigarettes, uncomplicated
CPT/HCPCS: 80053; 80143; 80179; 80307; 82077; 84703; 85025; 96361; 96365; 99285; A4216